=== PATIENT | male | born 1950 | race Caucasian/White ===

== ENCOUNTER 2020-12-13 11:49 | Inpatient (IN) | payer MEDICARE, OTHER ==
[2020-12-13] MEDS ORDERED: SODIUM CHLORIDE 0.9% 1,000 ML IV ONE (13:19)
--- NOTE | 2020-12-13 13:19 | ED ---
General Adult HPI - General Chief complaint: Abdominal Pain Stated complaint: Abdominal Pain Time Seen by Provider: 12/13/20 11:55 Source: patient, RN notes reviewed, old records reviewed Mode of arrival: ambulatory Limitations: no limitations - History of Present Illness Initial comments: This is a 70-year-old male who presents to the emergency department from [facility]. Patient was there and diagnosed with diverticulitis with possible abscess. Patient states he started having pain in the left side about 2 weeks ago went in and got some antibiotics and the pain and symptoms worsen so he went to the emergency department today were CAT scan was done that showed diverticulitis with an area of suspected of having an abscess. Patient denies any fever chills. Patient states the pain is quite significant left lower quadrant. Patient denies any chest pain or difficulty breathing shortness of breath. Patient denies any nausea vomiting. Patient denies any diarrhea. Patient states he does not need anything for pain currently he states he can stand the pain at this time. - Related Data Home Medications Medication Instructions Recorded Confirmed Ascorbic Acid [Vitamin C] 1,000 mg PO DAILY 12/13/20 12/13/20 Aspirin EC [Ecotrin] 325 mg PO DAILY 12/13/20 12/13/20 Atorvastatin Calcium [Lipitor] 80 mg PO DAILY 12/13/20 12/13/20 Multivitamins, Thera [Multivitamin 1 tab PO DAILY 12/13/20 12/13/20 (formulary)] Allergies Allergy/AdvReac Type Severity Reaction Status Date / Time No Known Allergies Allergy Verified 12/13/20 12:51 Review of Systems ROS Statement: Those systems with pertinent positive or pertinent negative responses have been documented in the HPI. ROS Other: All systems not noted in ROS Statement are negative. Past Medical History Additional Past Medical History / Comment(s): Diverticulitis History of Any Multi-Drug Resistant Organisms: None Reported Past Surgical History: No Surgical Hx Reported Past Psychological History: No Psychological Hx Reported Smoking Status: Current every day smoker Past Alcohol Use History: Occasional Past Drug Use History: None Reported General Exam - General Exam Comments Initial Comments: GENERAL: Patient is well-developed and well-nourished. Patient is nontoxic and well- hydrated and is in mild distress. ENT: Neck is soft and supple. No significant lymphadenopathy is noted. Oropharynx is clear. Moist mucous membranes. Neck has full range of motion without eliciting any pain. EYES: The sclera were anicteric and conjunctiva were pink and moist. Extraocular movements were intact and pupils were equal round and reactive to light. Eyelids were unremarkable. PULMONARY: Unlabored respirations. Good breath sounds bilaterally. No audible rales rhonchi or wheezing was noted. CARDIOVASCULAR: There is a regular rate and rhythm without any murmurs gallops or rubs. ABDOMEN: Patient has rebound tenderness left lower quadrant. SKIN: Skin is clear with no lesions or rashes and otherwise unremarkable. NEUROLOGIC: Patient is alert and oriented x3. Cranial nerves II through XII are grossly intact. Motor and sensory are also intact. Normal speech, volume and content. Symmetrical smile. MUSCULOSKELETAL: Normal extremities with adequate strength and full range of motion. LYMPHATICS: No significant lymphadenopathy is noted PSYCHIATRIC: Normal psychiatric evaluation. Limitations: no limitations Course Vital Signs 12/13/20 11:52 Temperature 98.8 F Pulse Rate 94 Respiratory 20 Rate Blood Pressure 123/68 O2 Sat by Pulse 97 Oximetry Medical Decision Making - Medical Decision Making I spoke with some physicians agreed to admit the patient admitted the patient. I started the patient on Zosyn. Disposition Clinical Impression: Diverticulitis of intestine with abscess Disposition: ADMITTED IP TO THIS HOSP Referrals: Nonstaff,Physician [Primary Care Provider] - 1-2 days Time of Disposition: 13:19
[2020-12-13] MEDS ORDERED: PIPERACILLIN-TAZOBACTAM 3.375 GM in SODIUM CHLORIDE 0.9% 100 ML IVPB STA (13:22)
[2020-12-13] MEDS ORDERED: HYDROmorphone 0.5 MG/0.5 ML SYRINGE IVP PRN (13:22)
[2020-12-13] MEDS ORDERED: ONDANSETRON 4 MG/2 ML VIAL IVP PRN (13:22)
--- NOTE | 2020-12-13 14:31 | P.GSCN ---
History of Present Illness Consult date: 12/13/20 History of present illness: CHIEF COMPLAINT: Abdominal pain HISTORY OF PRESENT ILLNESS: This is a 70-year-old male with a known history of diverticulitis, nicotine dependence and prostate cancer status post prostatectomy. Patient initially presented to [facility] with complaints of left lower quadrant abdominal pain. Patient has had pain for about 2 weeks. Patient was treated with oral antibiotics outpatient. However his left lower quadrant pain continued to worsen. He had computed tomography scan of abdomen and pelvis completed at [facility] that showed evidence of diverticulitis of sigmoid colon and multiple fluid collections. The largest fluid collection of 4.1 cm. The patient was transferred from [facility] to [facility] due to diverticulitis with possible abscess. Patient started on IV antibiotics. Surgical service consult in regards to diverticulitis and possible abscess. Patient states he has been having fevers. Denies any nausea or vomiting. He denies any blood in his stools. He reports his last colonoscopy was in June 2020 after his first episode of diverticulitis. This is patient's second episode of diverticulitis. PAST MEDICAL HISTORY: See list. PAST SURGICAL HISTORY: See list. MEDICATIONS: See list. ALLERGIES: See list. SOCIAL HISTORY: No illicit drug use. REVIEW OF SYSTEMS: CONSTITUTIONAL: Denies fever or chills. HEENT: Denies blurred vision, vision changes, or eye pain. Denies hemoptysis CARDIOVASCULAR: Denies chest pain or pressure. RESPIRATORY: No shortness of breath. GASTROINTESTINAL: See HPI for pertinent findings HEMATOLOGIC: Denies bleeding disorders. GENITOURINARY: Denies any blood in urine or increased urinary frequency. SKIN: Denies pruitis. Denies rash. PHYSICAL EXAM: VITAL SIGNS: Reviewed GENERAL: Well-developed in no acute distress. HEENT: No sclera icterus. Extraocular movements grossly intact. Moist buccal mucosa. Head is atraumatic, normocephalic. No nasal drainage. ABDOMEN: Soft. Nondistended. Left lower quadrant tenderness NEUROLOGIC: Alert and oriented. Cranial nerves II through XII grossly intact. LABORATORY DATA: WBC at [place] was 18 Lactic acid was normal IMAGING: ASSESSMENT: 1. Acute diverticulitis of the sigmoid colon with abscess. Failed outpatient treatment 2. Prior history of diverticulitis PLAN: -Consult interventional radiology for possible drainage of diverticular abscess -Continue IV Zosyn and add IV Flagyl -Keep patient nothing by mouth -Continue IV fluids -Continue pain medication as needed -Repeat labs in a.m. Thank you for this consultation Physician Auditor In Charge note has been reviewed by physician. Signing provider agrees with the documented findings, assessment, and plan of care. Past Medical History Additional Past Medical History / Comment(s): Diverticulitis History of Any Multi-Drug Resistant Organisms: None Reported Past Surgical History: No Surgical Hx Reported Past Psychological History: No Psychological Hx Reported Smoking Status: Current every day smoker Past Alcohol Use History: Occasional Past Drug Use History: None Reported Medications and Allergies Home Medications Medication Instructions Recorded Confirmed Type Ascorbic Acid [Vitamin C] 1,000 mg PO DAILY 12/13/20 12/13/20 History Aspirin EC [Ecotrin] 325 mg PO DAILY 12/13/20 12/13/20 History Atorvastatin Calcium [Lipitor] 80 mg PO DAILY 12/13/20 12/13/20 History Multivitamins, Thera [Multivitamin 1 tab PO DAILY 12/13/20 12/13/20 History (formulary)] Allergies Allergy/AdvReac Type Severity Reaction Status Date / Time No Known Allergies Allergy Verified 12/13/20 12:51 Surgical - Exam Vital Signs Temp Pulse Resp BP Pulse Ox 98.8 F 94 20 123/68 97 12/13/20 11:52 12/13/20 11:52 12/13/20 11:52 12/13/20 11:52 12/13/20 11:52
[2020-12-13] MEDS: SODIUM CHLORIDE 0.9% 1,000 ML IV SCH ×2 (14:47→20:25)
--- NOTE | 2020-12-13 14:51 | P.HPIM ---
History of Present Illness H&P Date: 12/13/20 Chief Complaint: Abdominal pain This is a 70-year-old male who presented to an outside emergency room at [facility] with worsening abdominal pain. Patient said that his symptoms started about 2 weeks ago when he was diagnosed with acute diverticulitis and he was treated with Cipro and Flagyl for 10 days. Patient said the last couple of days his abdominal pain is been getting worse. He described the pain as 10 out of 10 in severity mostly generalized. Some nausea but no vomiting. Patient is having diarrhea. Computed tomography scan at the outside hospital showed sigmoid diverticulitis with possible 4 cm abscess. Patient will be admitted to the hospital for further management. Review of Systems Review of system: 14 points review of systems were obtained and were negative except to what were mentioned in the HPI. Past Medical History Additional Past Medical History / Comment(s): Diverticulitis History of Any Multi-Drug Resistant Organisms: None Reported Past Surgical History: No Surgical Hx Reported Past Psychological History: No Psychological Hx Reported Smoking Status: Current every day smoker Past Alcohol Use History: Occasional Past Drug Use History: None Reported Medications and Allergies Home Medications Medication Instructions Recorded Confirmed Type Ascorbic Acid [Vitamin C] 1,000 mg PO DAILY 12/13/20 12/13/20 History Aspirin EC [Ecotrin] 325 mg PO DAILY 12/13/20 12/13/20 History Atorvastatin Calcium [Lipitor] 80 mg PO DAILY 12/13/20 12/13/20 History Multivitamins, Thera [Multivitamin 1 tab PO DAILY 12/13/20 12/13/20 History (formulary)] Allergies Allergy/AdvReac Type Severity Reaction Status Date / Time No Known Allergies Allergy Verified 12/13/20 12:51 Physical Exam Vitals: Vital Signs Temp Pulse Resp BP Pulse Ox 12/13/20 14:08 94 18 126/66 96 12/13/20 11:52 98.8 F 94 20 123/68 97 Intake and Output 12/12/20 12/13/20 12/13/20 22:59 06:59 14:59 Other: Weight 72.575 kg General: The patient is awake and alert, in no distress Eye: there is normal conjunctiva bilaterally. Neck: The neck is supple, there is no JVD. Cardiovascular: Normal S1-S2, no S3-S4, no murmurs. Respiratory: Lungs clear to auscultation bilaterally Gastrointestinal: Abdomen is soft, very tender to palpation Musculoskeletal: There is no pedal edema. Neurological:. Speech is normal. Skin: Skin is warm and dry Assessment and Plan Assessment: 1. Acute diverticulitis of the sigmoid colon with possible 4 cm abscess formation noted on computed tomography scan at outside hospital 2. Recurrent diverticulitis failed outpatient oral antibiotic 3. Hyperlipidemia Today, I reviewed his medication list and lab work results. Continue aggressive IV fluid hydration with normal saline. Nothing by mouth. Antibiotic with IV Zosyn. Gen. surgery consulted for further evaluation and plan for CT-guided aspiration. Continue pain control and anti-emetic as needed. Repeat Work in the morning.
[2020-12-13 16:08] LABS: INR 1.3 (<1.2); Prothrombin Time 12.9 sec (9.0-12.0)
[2020-12-13] MEDS: metroNIDAZOLE-NS PMX 500 MG in SALINE 1 100ML.BAG IVPB SCH (17:14)
[2020-12-13] MEDS: PIPERACILLIN-TAZOBACTAM 3.375 GM in SODIUM CHLORIDE 0.9% 100 ML IVPB SCH (20:18)
[2020-12-13] MEDS: HYDROmorphone 0.5 MG/0.5 ML SYRINGE IVP PRN (20:22)
[2020-12-14] MEDS: metroNIDAZOLE-NS PMX 500 MG in SALINE 1 100ML.BAG IVPB SCH ×3 (00:52→17:51)
[2020-12-14] MEDS: PIPERACILLIN-TAZOBACTAM 3.375 GM in SODIUM CHLORIDE 0.9% 100 ML IVPB SCH ×3 (05:06→21:11)
[2020-12-14] MEDS: SODIUM CHLORIDE 0.9% 1,000 ML IV SCH ×2 (05:08→13:57)
--- NOTE | 2020-12-14 09:21 | P.PN ---
Subjective Progress Note Date: 12/14/20 Patient reported that his abdominal pain is slightly better compared to yesterday. No nausea or vomiting. He is passing gas but no bowel movement since admission. Objective - Vital Signs Vital signs: Vital Signs Temp 98.3 F 12/14/20 08:00 Pulse 91 12/14/20 08:00 Resp 16 12/14/20 08:00 BP 132/71 12/14/20 08:00 Pulse Ox 96 12/14/20 08:00 Intake & Output 12/13/20 12/14/20 12/14/20 18:59 06:59 18:59 Output Total 600 Balance -600 Weight 72.575 kg Output: Urine 600 Other: # Voids 1 - Exam General: The patient is awake and alert, in no distress Eye: there is normal conjunctiva bilaterally. Neck: The neck is supple, there is no JVD. Cardiovascular: Normal S1-S2, no S3-S4, no murmurs. Respiratory: Lungs clear to auscultation bilaterally Gastrointestinal: Abdomen is soft, there is mild tenderness to palpation throughout the abdomen Musculoskeletal: There is no pedal edema. Neurological:. Speech is normal. Skin: Skin is warm and dry - Labs Labs: Abnormal Lab Results - Last 24 Hours (Table) 12/13/20 Range/Units 15:47 PT 12.9 H (9.0-12.0) sec INR 1.3 H (<1.2) Assessment and Plan Assessment: This is a 70-year-old male with past medical history noted below who presented to our hospital transferred from [place] emergency room for further evaluation of abdominal pain. Patient was evaluated in the ER and admitted to the hospital for further management of his medical problems noted below. 1. Acute diverticulitis of the sigmoid colon with possible 4 cm abscess formation noted on computed tomography scan at outside hospital 2. Recurrent diverticulitis failed outpatient oral antibiotic 3. Hyperlipidemia Today, I reviewed his medication list and lab work results. Continue aggressive IV fluid hydration with normal saline. Nothing by mouth. Antibiotic with IV Zosyn. Gen. surgery consulted for further evaluation and plan for CT-guided aspiration. Gen. surgery would like to add Flagyl on top of Zosyn. Continue pain control and anti-emetic as needed. Repeat Work in the morning.
[2020-12-14 09:25] LABS: HCT 37.7 % (39.6-50.0); HGB 12.3 g/dL (13.0-17.0); MCHC 32.6 g/dL (32.0-37.0); Mean Platelet Volume 10.7 fL (9.5-12.2); Platelet Count 375 X 10*3/uL (140-440); RBC 3.97 X 10*6/uL (4.40-5.60); RDW 12.8 % (11.5-14.5); WBC 17.47 X 10*3/uL (4.50-10.00)
[2020-12-14 10:23] LABS: African American GFR (CKD) 105.6 (60.0-200.0); Anion Gap 15.2 mmol/L (4.00-12.00); BUN/Creat Ratio 16.25 Ratio (12.00-20.00); Carbon Dioxide 18.8 mmol/L (21.6-31.8); Non-African American GFR(CKD) 91.1 (60.0-200.0); Potassium 4.1 mmol/L (3.5-5.5)
[2020-12-14] MEDS: HYDROmorphone 0.5 MG/0.5 ML SYRINGE IVP PRN ×4 (11:30→23:43)
--- NOTE | 2020-12-14 11:30 | P.PN ---
Subjective Progress Note Date: 12/14/20 CHIEF COMPLAINT: Abdominal pain HISTORY OF PRESENT ILLNESS: Surgical service is following regards to patient's acute diverticulitis with abscess. Patient reports decrease abdominal pain. Yesterday his pain was 9 out of 10 he currently is rating his pain about a 2 out of 10. He is having flatus. He is scheduled for possible drainage of abscess by interventional radiology. He is currently nothing by mouth. Afebrile. WBC down from 18-17.47 PHYSICAL EXAM: VITAL SIGNS: Reviewed. GENERAL: Well-developed in no acute distress. HEENT: No sclera icterus. Extraocular movements grossly intact. Moist buccal mucosa. Head is atraumatic, normocephalic. ABDOMEN: Soft. Nondistended. Tenderness with palpation the left lower quadrant and pelvic area NEUROLOGIC: Alert and oriented. Cranial nerves II through XII grossly intact. ASSESSMENT: 1. Acute diverticulitis of the sigmoid colon with abscess 2. History of diverticulitis PLAN: -Possible drainage of diverticular abscess by interventional radiology today -Keep patient nothing by mouth -Continue IV antibiotics -Continue IV fluids -Continue pain medications as needed -Continue monitor CBC Physician Judicial Administrative Assistant note has been reviewed by physician. Signing provider agrees with the documented findings, assessment, and plan of care. Objective - Vital Signs Vital signs: Vital Signs Temp 98.3 F 12/14/20 08:00 Pulse 91 12/14/20 08:00 Resp 16 12/14/20 08:00 BP 132/71 12/14/20 08:00 Pulse Ox 96 12/14/20 08:00 Intake & Output 12/13/20 12/14/20 12/14/20 18:59 06:59 18:59 Output Total 600 Balance -600 Weight 72.575 kg Output: Urine 600 Other: # Voids 1 - Labs CBC & Chem 7: 12/14/20 05:40 12/14/20 05:40 Labs: Abnormal Lab Results - Last 24 Hours (Table) 12/13/20 12/14/20 12/14/20 Range/Units 15:47 05:40 05:40 WBC 17.47 H (4.50-10.00) X 10*3/uL RBC 3.97 L (4.40-5.60) X 10*6/uL Hgb 12.3 L (13.0-17.0) g/dL Hct 37.7 L (39.6-50.0) % PT 12.9 H (9.0-12.0) sec INR 1.3 H (<1.2) Carbon Dioxide 18.8 L (21.6-31.8) mmol/L Anion Gap 15.20 H (4.00-12.00) mmol/L Calcium 8.0 L (8.7-10.3) mg/dL
--- NOTE | 2020-12-14 12:51 | CT ---
EXAMINATION TYPE: CT guided abscess drainage DATE OF EXAM: 12/14/2020 COMPARISON: 12/13/2020 HISTORY: Pelvic abscess CT DLP: 283.09 mGycm The procedure is discussed with the patient, the risks, complications, benefits and alternatives, wer e discussed and any questions were answered. Informed consent was obtained. The patient is placed p lulu on the CT table, prepped and draped in the usual sterile fashion. Utilizing a 22-gauge [place] needle access into a pelvic fluid collection was achieved with [place] 11 0.018 guidewire. There is conversion to internal 0.035 system, serial dilation 8 [place] and placement of an 8.5 drainage catheter which appear to be in ideal position. A preliminary material was aspirat ed and sent to pathology for analysis. All elements of maximal barrier technique were utilized. Th e patient remained stable throughout the procedure with no immediate postprocedural complication. IMPRESSION: 1. Successful CT guided fine drainage catheter insertion within pelvic abscess.
[2020-12-14 13:49] LABS: Basophils # (A) 0.05 X 10*3/uL (0.00-0.10); Basophils % (A) 0.3 %; Eosinophils # (A) 0.01 X 10*3/uL (0.04-0.35); Eosinophils % (A) 0.1 %; Lymphocytes # (A) 1.18 X 10*3/uL (0.90-5.00); Lymphocytes % (A) 6.8 %; Monocytes # (A) 1.93 X 10*3/uL (0.20-1.00); Neutrophils # (A) 14.19 X 10*3/uL (1.80-7.70); Neutrophils % (A) 81.2 %
[2020-12-15] MEDS: metroNIDAZOLE-NS PMX 500 MG in SALINE 1 100ML.BAG IVPB SCH ×3 (01:16→17:49)
[2020-12-15] MEDS: SODIUM CHLORIDE 0.9% 1,000 ML IV SCH ×2 (01:16→08:13)
[2020-12-15] MEDS: HYDROmorphone 0.5 MG/0.5 ML SYRINGE IVP PRN ×3 (04:52→17:58)
[2020-12-15] MEDS: PIPERACILLIN-TAZOBACTAM 3.375 GM in SODIUM CHLORIDE 0.9% 100 ML IVPB SCH ×3 (04:53→20:59)
[2020-12-15 08:00] LABS: Chloride 105 mmol/L (98-107)
[2020-12-15 08:03] LABS: African American GFR (CKD) >90 (>60 ml/min/1.73 sqM); Anion Gap 15 mmol/L; Blood Urea Nitrogen 12 mg/dL (9-20); Carbon Dioxide 18 mmol/L (22-30); Glucose 82 mg/dL (74-99); Magnesium 2.1 mg/dL (1.6-2.3); Non-African American GFR(CKD) >90 (>60 ml/min/1.73 sqM); Potassium 3.9 mmol/L (3.5-5.1); Sodium 138 mmol/L (137-145)
--- NOTE | 2020-12-15 11:16 | P.PN ---
Progress Note - Text Progress Note Date: 12/15/20 Patient underwent intervention radiology drain placement yesterday. He states he feels slightly better. On exam vital signs are stable. Abdomen soft. There is minimal left lower quadrant tenderness. Diverticulitis with drainage of abscess. Patient will receive IV and back. He'll start on clear liquids.
[2020-12-15 12:15] LABS: Basophils # (A) 0.04 X 10*3/uL (0.00-0.10); Basophils % (A) 0.3 %; Eosinophils # (A) 0.04 X 10*3/uL (0.04-0.35); Eosinophils % (A) 0.3 %; HCT 35.6 % (39.6-50.0); HGB 11.5 g/dL (13.0-17.0); Lymphocytes # (A) 1.05 X 10*3/uL (0.90-5.00); Lymphocytes % (A) 8.3 %; MCHC 32.3 g/dL (32.0-37.0); Mean Platelet Volume 10.5 fL (9.5-12.2); Monocytes # (A) 1.33 X 10*3/uL (0.20-1.00); Monocytes % (A) 10.5 %; Neutrophils # (A) 10.11 X 10*3/uL (1.80-7.70); Neutrophils % (A) 79.7 %; Platelet Count 361 X 10*3/uL (140-440); RBC 3.71 X 10*6/uL (4.40-5.60); RDW 12.8 % (11.5-14.5); WBC 12.68 X 10*3/uL (4.50-10.00)
--- NOTE | 2020-12-15 12:36 | P.PN ---
Subjective Progress Note Date: 12/15/20 Patient is feeling better today. He underwent drain placement with IR yesterday. There is some blood drainage in the back. Objective - Vital Signs Vital signs: Vital Signs Temp 98 F 12/15/20 08:00 Pulse 76 12/15/20 08:00 Resp 16 12/15/20 08:00 BP 116/65 12/15/20 08:00 Pulse Ox 96 12/15/20 08:00 Intake & Output 12/14/20 12/15/20 12/15/20 18:59 06:59 18:59 Output Total 500 300 200 Balance -500 -300 -200 Output: Urine 500 300 200 Other: # Voids 2 # Bowel Movements 0 - Exam General: The patient is awake and alert, in no distress Eye: there is normal conjunctiva bilaterally. Neck: The neck is supple, there is no JVD. Cardiovascular: Normal S1-S2, no S3-S4, no murmurs. Respiratory: Lungs clear to auscultation bilaterally Gastrointestinal: Abdomen is soft, there is mild tenderness to palpation throughout the abdomen Musculoskeletal: There is no pedal edema. Neurological:. Speech is normal. Skin: Skin is warm and dry - Labs CBC & Chem 7: 12/15/20 07:15 12/15/20 07:15 Labs: Abnormal Lab Results - Last 24 Hours (Table) 12/14/20 12/15/20 12/15/20 Range/Units 05:40 07:15 07:15 WBC 12.68 H (4.50-10.00) X 10*3/uL RBC 3.71 L (4.40-5.60) X 10*6/uL Hgb 11.5 L (13.0-17.0) g/dL Hct 35.6 L (39.6-50.0) % Immature Gran # 0.11 H 0.11 H (0.00-0.04) X 10*3/uL Neutrophils # 14.19 H 10.11 H (1.80-7.70) X 10*3/uL Monocytes # 1.93 H 1.33 H (0.20-1.00) X 10*3/uL Eosinophils # 0.01 L (0.04-0.35) X 10*3/uL Carbon Dioxide 18 L (22-30) mmol/L Calcium 8.0 L (8.4-10.2) mg/dL Microbiology - Last 24 Hours (Table) 12/14/20 12:15 Gram Stain - Preliminary Aspirate Body Fluid Culture - Preliminary 12/14/20 12:15 Anaerobic Culture - Preliminary Aspirate Assessment and Plan Assessment: This is a 70-year-old male with past medical history noted below who presented to our hospital transferred from [place] emergency room for further evaluation of abdominal pain. Patient was evaluated in the ER and admitted to the hospital for further management of his medical problems noted below. 1. Acute diverticulitis of the sigmoid colon with possible 4 cm abscess formation noted on computed tomography scan at outside hospital, status post CT- guided aspiration with drain placement. Gen. surgery following closely. 2. Recurrent diverticulitis failed outpatient oral antibiotic 3. Hyperlipidemia Today, I reviewed his medication list and lab work results. Antibiotic with IV Zosyn. Gen. surgery would like to add Flagyl on top of Zosyn. Continue pain control and anti-emetic as needed. Repeat Work in the morning.
[2020-12-16] MEDS: metroNIDAZOLE-NS PMX 500 MG in SALINE 1 100ML.BAG IVPB SCH ×3 (01:00→17:31)
[2020-12-16] MEDS: HYDROmorphone 0.5 MG/0.5 ML SYRINGE IVP PRN ×2 (01:05→21:00)
[2020-12-16] MEDS: PIPERACILLIN-TAZOBACTAM 3.375 GM in SODIUM CHLORIDE 0.9% 100 ML IVPB SCH ×3 (05:14→21:01)
--- NOTE | 2020-12-16 11:13 | P.PN ---
Subjective Progress Note Date: 12/16/20 Patient is doing well today. He underwent drain placement with IR on Thursday. There is some blood drainage in the back. Objective - Vital Signs Vital signs: Vital Signs Temp 98.0 F 12/16/20 08:00 Pulse 70 12/16/20 08:00 Resp 18 12/16/20 08:00 BP 134/68 12/16/20 08:00 Pulse Ox 94 L 12/16/20 08:00 Intake & Output 12/15/20 12/16/20 12/16/20 18:59 06:59 18:59 Output Total 200 400 Balance -200 -400 Output: Urine 200 400 Other: # Voids 1 - Exam General: The patient is awake and alert, in no distress Eye: there is normal conjunctiva bilaterally. Neck: The neck is supple, there is no JVD. Cardiovascular: Normal S1-S2, no S3-S4, no murmurs. Respiratory: Lungs clear to auscultation bilaterally Gastrointestinal: Abdomen is soft, there is mild tenderness to palpation throughout the abdomen Musculoskeletal: There is no pedal edema. Neurological:. Speech is normal. Skin: Skin is warm and dry - Labs CBC & Chem 7: 12/15/20 07:15 12/15/20 07:15 Labs: Abnormal Lab Results - Last 24 Hours (Table) 12/15/20 Range/Units 07:15 WBC 12.68 H (4.50-10.00) X 10*3/uL RBC 3.71 L (4.40-5.60) X 10*6/uL Hgb 11.5 L (13.0-17.0) g/dL Hct 35.6 L (39.6-50.0) % Immature Gran # 0.11 H (0.00-0.04) X 10*3/uL Neutrophils # 10.11 H (1.80-7.70) X 10*3/uL Monocytes # 1.33 H (0.20-1.00) X 10*3/uL Microbiology - Last 24 Hours (Table) 12/14/20 12:15 Gram Stain - Preliminary Aspirate Body Fluid Culture - Preliminary Assessment and Plan Assessment: This is a 70-year-old male with past medical history noted below who presented to our hospital transferred from [place] emergency room for further evaluation of abdominal pain. Patient was evaluated in the ER and admitted to the hospital for further management of his medical problems noted below. 1. Acute diverticulitis of the sigmoid colon with possible 4 cm abscess formation noted on computed tomography scan at outside hospital, status post CT- guided aspiration with drain placement. Gen. surgery following closely. 2. Recurrent diverticulitis failed outpatient oral antibiotic 3. Hyperlipidemia Today, I reviewed his medication list and lab work results. Antibiotic with IV Zosyn. Gen. surgery would like to add Flagyl on top of Zosyn. Continue pain control and anti-emetic as needed. Repeat Work in the morning.
--- NOTE | 2020-12-16 12:24 | P.PN ---
Progress Note - Text Progress Note Date: 12/16/20 Patient feels better. He still has some pain. His BLU drain still has some serosanguineous purulent fluid. On exam vitals are stable. Abdomen soft. Diverticulosis with abscess. Patient can receive IV antibiotic.
[2020-12-16 12:42] LABS: Basophils # (A) 0.06 X 10*3/uL (0.00-0.10); Basophils % (A) 0.6 %; Eosinophils # (A) 0.21 X 10*3/uL (0.04-0.35); Eosinophils % (A) 2.1 %; HCT 35.3 % (39.6-50.0); HGB 11.4 g/dL (13.0-17.0); Lymphocytes # (A) 1.16 X 10*3/uL (0.90-5.00); Lymphocytes % (A) 11.6 %; MCH 30.2 pg (27.0-32.0); MCHC 32.3 g/dL (32.0-37.0); MCV 93.6 fL (80.0-97.0); Mean Platelet Volume 10.7 fL (9.5-12.2); Monocytes # (A) 1.15 X 10*3/uL (0.20-1.00); Monocytes % (A) 11.5 %; Neutrophils # (A) 7.31 X 10*3/uL (1.80-7.70); Platelet Count 359 X 10*3/uL (140-440); RBC 3.77 X 10*6/uL (4.40-5.60); RDW 12.5 % (11.5-14.5); WBC 10.01 X 10*3/uL (4.50-10.00)
[2020-12-16 13:51] LABS: Magnesium 1.8 mg/dL (1.5-2.4)
[2020-12-16 13:52] LABS: African American GFR (CKD) 111.6 (60.0-200.0); Anion Gap 9.7 mmol/L (4.00-12.00); BUN/Creat Ratio 17.14 Ratio (12.00-20.00); Calcium 7.5 mg/dL (8.7-10.3); Carbon Dioxide 23.3 mmol/L (21.6-31.8); Non-African American GFR(CKD) 96.3 (60.0-200.0); Potassium 3.6 mmol/L (3.5-5.5)
[2020-12-17] MEDS: metroNIDAZOLE-NS PMX 500 MG in SALINE 1 100ML.BAG IVPB SCH ×4 (01:10→23:30)
[2020-12-17] MEDS: PIPERACILLIN-TAZOBACTAM 3.375 GM in SODIUM CHLORIDE 0.9% 100 ML IVPB SCH ×3 (05:09→21:05)
[2020-12-17 11:19] LABS: Basophils # (A) 0.05 X 10*3/uL (0.00-0.10); Basophils % (A) 0.7 %; Eosinophils # (A) 0.24 X 10*3/uL (0.04-0.35); Eosinophils % (A) 3.4 %; HCT 38.5 % (39.6-50.0); HGB 12.6 g/dL (13.0-17.0); Lymphocytes # (A) 1.12 X 10*3/uL (0.90-5.00); Lymphocytes % (A) 16.1 %; MCH 30.7 pg (27.0-32.0); MCHC 32.7 g/dL (32.0-37.0); MCV 93.7 fL (80.0-97.0); Mean Platelet Volume 10.6 fL (9.5-12.2); Monocytes % (A) 11.5 %; Neutrophils # (A) 4.65 X 10*3/uL (1.80-7.70); Neutrophils % (A) 66.9 %; Platelet Count 391 X 10*3/uL (140-440); RBC 4.11 X 10*6/uL (4.40-5.60); RDW 12.4 % (11.5-14.5); WBC 6.96 X 10*3/uL (4.50-10.00)
[2020-12-17 12:32] LABS: African American GFR (CKD) 111.6 (60.0-200.0); Calcium 8.2 mg/dL (8.7-10.3); Non-African American GFR(CKD) 96.3 (60.0-200.0); Potassium 3.4 mmol/L (3.5-5.5)
[2020-12-17] MEDS ORDERED: POTASSIUM CHLORIDE ER 20 MEQ TAB.ER PO STA (12:39)
--- NOTE | 2020-12-17 12:39 | P.PN ---
Subjective Patient reports still having some abdominal discomfort today. No nausea or vomiting. Objective - Vital Signs Vital signs: Vital Signs Temp 97.7 F 12/17/20 07:30 Pulse 65 12/17/20 07:30 Resp 18 12/17/20 07:30 BP 123/72 12/17/20 07:30 Pulse Ox 96 12/17/20 07:30 Intake & Output 12/16/20 12/17/20 12/17/20 18:59 06:59 18:59 Intake Total 1080 Output Total 900 80 Balance 1080 -900 -80 Intake: Oral 1080 Output: Drainage 80 Lower Medial Abdomen 80 Urine 900 Other: # Voids 3 - Exam General: The patient is awake and alert, in no distress Eye: there is normal conjunctiva bilaterally. Neck: The neck is supple, there is no JVD. Cardiovascular: Normal S1-S2, no S3-S4, no murmurs. Respiratory: Lungs clear to auscultation bilaterally Gastrointestinal: Abdomen is soft, there is mild tenderness to palpation throughout the abdomen Musculoskeletal: There is no pedal edema. Neurological:. Speech is normal. Skin: Skin is warm and dry - Labs CBC & Chem 7: 12/17/20 07:02 12/17/20 07:02 Labs: Abnormal Lab Results - Last 24 Hours (Table) 12/16/20 12/16/20 12/17/20 Range/Units 06:49 06:49 07:02 WBC 10.01 H (4.50-10.00) X 10*3/uL RBC 3.77 L 4.11 L (4.40-5.60) X 10*6/uL Hgb 11.4 L 12.6 L (13.0-17.0) g/dL Hct 35.3 L 38.5 L (39.6-50.0) % Immature Gran # 0.12 H 0.10 H (0.00-0.04) X 10*3/uL Monocytes # 1.15 H (0.20-1.00) X 10*3/uL Potassium (3.5-5.5) mmol/L BUN (9.0-27.0) mg/dL BUN/Creatinine Ratio (12.00-20.00) Ratio Calcium 7.5 L (8.7-10.3) mg/dL 12/17/20 Range/Units 07:02 WBC (4.50-10.00) X 10*3/uL RBC (4.40-5.60) X 10*6/uL Hgb (13.0-17.0) g/dL Hct (39.6-50.0) % Immature Gran # (0.00-0.04) X 10*3/uL Monocytes # (0.20-1.00) X 10*3/uL Potassium 3.4 L (3.5-5.5) mmol/L BUN 7.0 L (9.0-27.0) mg/dL BUN/Creatinine Ratio 10.00 L (12.00-20.00) Ratio Calcium 8.2 L (8.7-10.3) mg/dL Microbiology - Last 24 Hours (Table) 12/14/20 12:15 Anaerobic Culture - Preliminary Aspirate Assessment and Plan Assessment: This is a 70-year-old male with past medical history noted below who presented to our hospital transferred from [place] emergency room for further evaluation of abdominal pain. Patient was evaluated in the ER and admitted to the hospital for further management of his medical problems noted below. 1. Acute diverticulitis of the sigmoid colon with possible 4 cm abscess formation noted on computed tomography scan at outside hospital, status post CT- guided aspiration with drain placement. Gen. surgery following closely. 2. Recurrent diverticulitis failed outpatient oral antibiotic 3. Hyperlipidemia Today, I reviewed his medication list and lab work results. Antibiotic with IV Zosyn. Gen. surgery would like to add Flagyl on top of Zosyn. Continue pain control and anti-emetic as needed. Repeat Work in the morning. Awaiting further recommendations from general surgery on drain removal and possibly today
--- NOTE | 2020-12-17 17:20 | P.PN ---
Progress Note - Text Progress Note Date: 12/17/20 Patient improving. He has decreased abdominal pain. On exam her vital signs are stable. Abdomen soft. Left lower quadrant drain has some seropurulent fluid. Status post drainage of diverticular abscess. Patient's. IV antibiotic. He may be switched to oral Avelox tomorrow and discharge home.
[2020-12-18] MEDS: HYDROmorphone 0.5 MG/0.5 ML SYRINGE IVP PRN (00:38)
[2020-12-18 07:37] VITALS: RESP 18; TEMP 97.5
[2020-12-18] MEDS: metroNIDAZOLE 500 MG TAB PO SCH ×2 (08:39→15:10)
[2020-12-18] MEDS ORDERED: LEVOFLOXACIN 500 MG TAB PO SCH (09:00)
[2020-12-18 14:34] LABS: African American GFR (CKD) 111.6 (60.0-200.0); Anion Gap 10.8 mmol/L (4.00-12.00); BUN/Creat Ratio 8.57 Ratio (12.00-20.00); Calcium 8.2 mg/dL (8.7-10.3); Carbon Dioxide 25.2 mmol/L (21.6-31.8); Non-African American GFR(CKD) 96.3 (60.0-200.0); Potassium 3.7 mmol/L (3.5-5.5)
[2020-12-18 15:14] VITALS: BMI 24.3
[2020-12-18 15:23] VITALS: BP 134/71; PULSE 77
--- NOTE | 2020-12-18 16:12 | P.DS ---
<Calderon Sheikh - Last Filed: 12/18/20 16:02> Providers Expected date of discharge: 12/18/20 Hospital Course: Discharge Diagnosis: Acute diverticulitis of the sigmoid colon with possible 4 cm abscess formation noted on computed tomography scan at outside hospital, status post CT-guided aspiration with drain placement. Recurrent diverticulitis failed outpatient oral antibiotic Hyperlipidemia Hospital Course: Patient is a 70-year-old male with a past medical history of hyperlipidemia and diverticulosis. He presented to the hospital on 12/13/20 with a chief complaint of worsening abdominal pain. Patient reports 2 weeks prior he was diagnosed with acute diverticulitis and was treated with ciprofloxacin and Flagyl for 10 days. However pain significantly worsened and was accompanied by diarrhea. Virgilio aguero seen and evaluated in the emergency department at [facility] and was found to have sigmoid diverticulitis with possible 4 cm abscess accompanied by significant leukocytosis with WBC count of 17.47 with left shift. Patient was placed on IV fluids, IV antibiotics, and admitted under our services with consultation to general surgery. Patient underwent CT-guided aspiration/abscess drainage on 12/14/[address] Carmona. Cultures obtained positive for alphahemolytic Streptococcus. Patient's condition significantly improved, leukocytosis resolved. Patient cleared by general surgery for discharge home at this time. Patient is medically stable for discharge home. Patient instructed he is being discharged home on full liquid diet and to slowly progress to brat diet as tolerated. Patient to follow-up with his PCP in 1-[address] Carmona on 12/27/20 at 3 PM. Patient verbalized understanding and denied having any questions at this time. Physical exam: Patient seen and examined at bedside. He denied having any complaints or concerns at this time. Reports resolution of diarrhea. He reports resolution of abdominal pain. Patient denies. Any headache, lightheadedness, dizziness, chest pain, pelvic dictations, shortness of breath, nausea, vomiting, or any other complaints. Patient tolerating full liquid diet. Vital signs reviewed and stable. General: Nontoxic, no distress and appears stated age. Derm: Skin warm and dry, normal coloration for ethnicity. Head: Atraumatic, normocephalic and symmetric. Eyes: EOMs intact, no lid lag, and anicteric sclera Mouth: no lip lesions, mucus membranes moist Cardiovascular: regular rate and rhythm with normal S1S2, no murmur, positive posterior tibial pulses bilaterally, and cap refill < 2 seconds. Lungs: Respirations even, regular, and unlabored on room air. Lungs CTA bilaterally, no rhonchi, no rales, no wheezing, and no accessory muscle usage. Abdominal: soft, nontender to palpation, no guarding, no appreciable organomegaly Ext: ROM intact. No gross muscle atrophy, no edema, no contractures Neuro: Speech clear, face symmetrical and CN II-XII grossly intact with no noted focal neuro deficits Psych: Alert and oriented to person, place, time, and situation. Appropriate and pleasant affect. A total of 45 minutes of time were spent preparing this complex discharge summary. Patient Condition at Discharge: Fair Plan - Discharge Summary Discharge Rx Participant: No New Discharge Prescriptions: New Levofloxacin [Levaquin] 500 mg PO Q24H 5 Days #5 tab metroNIDAZOLE [Flagyl] 500 mg PO TID 5 Days #15 tab Continue Atorvastatin Calcium [Lipitor] 80 mg PO DAILY Ascorbic Acid [Vitamin C] 1,000 mg PO DAILY Multivitamins, Thera [Multivitamin (formulary)] 1 tab PO DAILY Aspirin EC [Ecotrin] 325 mg PO DAILY Discharge Medication List Ascorbic Acid [Vitamin C] 1,000 mg PO DAILY 12/13/20 [History] Aspirin EC [Ecotrin] 325 mg PO DAILY 12/13/20 [History] Atorvastatin Calcium [Lipitor] 80 mg PO DAILY 12/13/20 [History] Multivitamins, Thera [Multivitamin (formulary)] 1 tab PO DAILY 12/13/20 [History] Levofloxacin [Levaquin] 500 mg PO Q24H 5 Days #5 tab 12/18/20 [Rx] metroNIDAZOLE [Flagyl] 500 mg PO TID 5 Days #15 tab 12/18/20 [Rx] Follow up Appointment(s)/Referral(s): Nonstaff,Physician [Primary Care Provider] - 1-2 days Jigar Chanel [STAFF PHYSICIAN] - 1-2 Days Esteban Carmona MD [STAFF PHYSICIAN] - 12/27/20 3:00 pm Patient Instructions/Handouts: Diverticulitis (DC), Diverticulitis Diet (DC), Abscess Incision and Drainage (DC) Activity/Diet/Wound Care/Special Instructions: Empty abscess drainage bag and record amount daily in journal and be sure to bring with you to your next doctor's appointment. Continue full liquid diet and progress slowly to MAULIK (bread, rice, applesauce, tea, and toast... Kleberg nongreasy foods) diet as tolerated. Discharge Disposition: HOME SELF-CARE <Shawnee Rico - Last Filed: 12/18/20 19:50> Providers Date of admission: 12/13/20 13:20 Attending physician: Cam Romero Consults: 12/13/20 13:19 Consult Physician Urgent Consulting Provider: Esteban Carmona Consult Reason/Comments: Diverticulitis with abscess Do you want consulting provider notified?: Yes Primary care physician: Physician Nonstaff Hospital Course: Calderon Sheikh NP rendered care for this patient independently, reviewed the findings and plan as documented in the note above. I did not physically speak with or examine the patient on this date. Patient will complete a 10 day course of antibiotics.
== END 2020-12-18 15:49 | disposition home or self-care (01) | DRG 392 ==
LOC: EC 11:49 → 4SSUR 13:20
PROVIDERS: ADMIT Internal Medicine; ATTEND Internal Medicine
PROC: 0W9J30Z Drainage of Pelvic Cavity with Drainage Device, Percutaneous Approach (ICD-10-PCS; principal; 2020-12-14)
DX: K57.20 Diverticulitis of large intestine with perforation and abscess without bleeding (principal); F17.200 Nicotine dependence, unspecified, uncomplicated; E78.5 Hyperlipidemia, unspecified; Z79.82 Long term (current) use of aspirin; Z79.899 Other long term (current) drug therapy; Z85.46 Personal history of malignant neoplasm of prostate; Z90.79 Acquired absence of other genital organ(s)
CPT/HCPCS: 75989; 77012; 80048; 83735; 85025; 85610; 87070; 87075; 87205; 99285

== ENCOUNTER 2021-02-12 09:43 | Day surgery (SDC) | payer MEDICARE, OTHER ==
[2021-02-11 08:42] VITALS: BMI 23.6
[~2021-02-12 09:43] MED LIST: LIDOCAINE 1% (10MG/ML) FOR IV START INTRADERMA PRN
[2021-02-12 10:13] VITALS: RESP 16; TEMP 97.9
[2021-02-12] MEDS: LACTATED RINGERS 1,000 ML IV SCH ×2 (10:21→11:09)
[2021-02-12] MEDS ORDERED: PROPOFOL 10 MG/ML 20 ML VIAL IV ONE (11:09)
[2021-02-12] MEDS ORDERED: LIDOCAINE 1% INJ 10MG/ML (20 ML MDV) ONE (11:09)
--- NOTE | 2021-02-12 11:23 | P.GSHP ---
History of Present Illness H&P Date: 02/12/21 Chief Complaint: Perforated diverticulitis 's is a 70-year-old male with history of perforated diverticula is. Patient underwent colonoscopy today with sigmoid resection scheduled for tomorrow. Past Medical History Past Medical History: Cancer, Hyperlipidemia Additional Past Medical History / Comment(s): Diverticulitis,prostate CA 2006 History of Any Multi-Drug Resistant Organisms: None Reported Past Surgical History: Prostate Surgery Additional Past Surgical History / Comment(s): prostatectomy Past Anesthesia/Blood Transfusion Reactions: No Reported Reaction Additional Past Anesthesia/Blood Transfusion Reaction / Comment(s): no hx blood transfusion Smoking Status: Current every day smoker - Past Family History Father Family Medical History: No Reported History Medications and Allergies Home Medications Medication Instructions Recorded Confirmed Type Ascorbic Acid [Vitamin C] 1,000 mg PO DAILY 12/13/20 02/11/21 History Aspirin EC [Ecotrin] 325 mg PO DAILY 12/13/20 02/11/21 History Atorvastatin Calcium [Lipitor] 80 mg PO DAILY 12/13/20 02/12/21 History Multivitamins, Thera [Multivitamin 1 tab PO DAILY 12/13/20 02/11/21 History (formulary)] Allergies Allergy/AdvReac Type Severity Reaction Status Date / Time No Known Allergies Allergy Verified 02/12/21 10:05 Surgical - Exam Vital Signs Temp Pulse Resp BP Pulse Ox 97.9 F 122 H 16 153/70 99 02/12/21 10:12 02/12/21 10:12 02/12/21 10:12 02/12/21 10:12 02/12/21 10:12 - General well developed, well nourished, no distress - Eyes PERRL - ENT normal pinna - Neck no masses - Respiratory normal expansion - Cardiovascular Rhythm: regular - Abdomen Abdomen: soft, non tender Assessment and Plan Assessment: History of diverticulitis. We'll perform colonoscopy.
--- NOTE | 2021-02-12 11:33 | P.OP ---
Date of Procedure: 02/12/21 Preoperative Diagnosis: Diverticulitis Postoperative Diagnosis: Diverticulitis Procedure(s) Performed: Colonoscopy Anesthesia: MAC Surgeon: Esteban Carmona Pathology: none sent Condition: stable Disposition: PACU Description of Procedure: The patient's placed on the endoscopy table in the lateral position. He received IV sedation. Digital rectal exam was performed which revealed no ebonized. The flexible colonoscope was then placed patient anus passed with colon. The right colon had significant amount liquid stool. At this point the scope was withdrawn. The transverse colon appeared normal. The descending colon had a few scattered diverticula. There is evidence of significant diverticular changes and sigmoid colon. Scope was withdrawn the rectum. This appeared normal. Scope withdrawn for patient.
[2021-02-12 11:56] VITALS: BP 134/76; PULSE 102
== END 2021-02-12 12:05 | disposition home or self-care (01) ==
LOC: ORWHC2ENDO 09:43
PROVIDERS: ATTEND Surgery
DX: K57.92 Diverticulitis of intestine, part unspecified, without perforation or abscess without bleeding (principal); Z79.82 Long term (current) use of aspirin; Z79.899 Other long term (current) drug therapy; E78.5 Hyperlipidemia, unspecified; Z85.46 Personal history of malignant neoplasm of prostate; F17.210 Nicotine dependence, cigarettes, uncomplicated
CPT/HCPCS: 45378; J2001; J2704

== ENCOUNTER 2021-02-13 08:45 | Inpatient (IN) | payer MEDICARE, OTHER ==
[~2021-02-13 08:45] MED LIST changes: +ACETAMINOPHEN TAB 500 MG TAB PO PRN; +DEXAMETHASONE SOD PHOSPHATE 4 MG/ML 1 ML VIAL IV ONE; +HEPARIN SODIUM,PORCINE/PF 5,000 UNIT/0.5 ML SYRINGE SQ PRN; +MIDAZOLAM 2 MG/2 ML VIAL IV PRN; +ONDANSETRON 4 MG/2 ML VIAL IVP ONE; +metroNIDAZOLE-NS PMX 500 MG in SALINE 1 100ML.BAG IVPB PRN
[2021-02-13] MEDS: LACTATED RINGERS 1,000 ML IV SCH (09:31)
[2021-02-13 10:12] LABS: Partial Thromboplastin Time 32.5 sec (22.0-30.0)
--- NOTE | 2021-02-13 12:32 | P.GSHP ---
History of Present Illness H&P Date: 02/13/21 Chief Complaint: History of perforated diverticulitis This is a 70-year-old male who presents today for sigmoid resection. He has a history of multiple attacks of diverticulitis last year. Patient is aware of the risk of colostomy and possible wound infection. Past Medical History Past Medical History: Cancer, Hyperlipidemia Additional Past Medical History / Comment(s): Diverticulitis,prostate CA 2007 History of Any Multi-Drug Resistant Organisms: None Reported Past Surgical History: Prostate Surgery Additional Past Surgical History / Comment(s): prostatectomy Past Anesthesia/Blood Transfusion Reactions: No Reported Reaction Smoking Status: Current every day smoker - Past Family History Father Family Medical History: No Reported History Medications and Allergies Home Medications Medication Instructions Recorded Confirmed Type Ascorbic Acid [Vitamin C] 1,000 mg PO DAILY 12/13/20 02/13/21 History Aspirin EC [Ecotrin] 325 mg PO DAILY 12/13/20 02/13/21 History Atorvastatin Calcium [Lipitor] 80 mg PO DAILY 12/13/20 02/13/21 History Multivitamins, Thera [Multivitamin 1 tab PO DAILY 12/13/20 02/13/21 History (formulary)] Allergies Allergy/AdvReac Type Severity Reaction Status Date / Time No Known Allergies Allergy Verified 02/13/21 09:31 Surgical - Exam Vital Signs Temp Pulse Resp BP Pulse Ox 97.4 F L 101 H 18 152/73 98 02/13/21 09:58 02/13/21 09:58 02/13/21 09:58 02/13/21 09:58 02/13/21 09:58 - General well developed, well nourished, no distress - Eyes PERRL - ENT normal pinna - Neck no masses - Respiratory normal expansion - Cardiovascular Rhythm: regular - Abdomen Abdomen: soft, non tender Results - Labs Abnormal Lab Results - Last 24 Hours (Table) 02/13/21 Range/Units 09:53 APTT 32.5 H (22.0-30.0) sec Assessment and Plan Assessment: History Dr. helms. We'll perform low anterior resection.
[2021-02-13] MEDS ORDERED: fentaNYL (PF) 50 MCG/ML 2 ML AMP IVP ONE (12:52)
[2021-02-13] MEDS ORDERED: MIDAZOLAM 2 MG/2 ML VIAL IVP ONE (12:53)
[2021-02-13] MEDS ORDERED: fentaNYL (PF) 50 MCG/ML 2 ML AMP ONE ×2 (13:16→18:25)
[2021-02-13] MEDS ORDERED: HYDROmorphone (PF) 1 MG/ML ONE (13:16)
[2021-02-13] MEDS ORDERED: MIDAZOLAM 2 MG/2 ML VIAL ONE ×2 (13:16→18:25)
[2021-02-13] MEDS ORDERED: PHENYLEPHRINE-0.9% NACL SYG 1,000 MCG/10 ML SYRINGE ONE (13:16)
[2021-02-13] MEDS ORDERED: ROCURONIUM 10 MG/ML (5 ML VIAL) IV ONE ×2 (13:16→18:25)
[2021-02-13] MEDS ORDERED: NEOSTIGMINE 1 MG/ML 10 ML VIAL ONE ×2 (13:16→18:25)
[2021-02-13] MEDS ORDERED: LIDOCAINE 1% INJ 10MG/ML (20 ML MDV) ONE ×2 (13:16→18:25)
[2021-02-13] MEDS ORDERED: PROPOFOL 10 MG/ML 20 ML VIAL IV ONE ×2 (13:16→18:25)
[2021-02-13] MEDS ORDERED: ROPIVACAINE 5 MG/ML 30 ML VIAL ONE (13:16)
[2021-02-13] MEDS ORDERED: SUCCINYLCHOLINE CHLORIDE 100 MG/5 ML SYR IV ONE ×2 (13:16→18:25)
[2021-02-13] MEDS ORDERED: FUROSEMIDE 10 MG/ML 2 ML VIAL ONE (13:16)
[2021-02-13] MEDS ORDERED: GLYCOPYRROLATE 0.2 MG/ML 2 ML VIAL ONE ×2 (13:16→18:25)
[2021-02-13] MEDS ORDERED: SODIUM CHLORIDE 0.9% (PF) 10 ML VIAL ONE (13:16)
--- NOTE | 2021-02-13 13:21 | P.ANPRN ---
Procedure Note - Anesthesia - Nerve Block Performed Bilateral Erector Spinae Single Time Out Performed: Yes (1254) Date of Procedure: 02/13/21 Procedure Start Time: 12:55 Procedure Stop Time: 13:02 Location of Patient: PreOp Indication: Acute Post-Operative Pain, Requested by Surgeon Specifically requested for management of pain by DrNathaniel: Esteban Carmona Sedation Type: Sedate with meaningful contact maintained Preparation: Sterile Prep Position: Prone Catheter: None Needle Types: Pajunk Needle Gauge: 21 Ultrasound used to visualize needle placement: Yes Ultrasound used to observe medication spread: Yes Injectate: 0.5% Ropivacaine (see comment for volume) (15cc + 15cc nacl pf each side) Blood Aspirated: No Pain Paresthesia on Injection Noted: No Resistance on Injection: Normal Image Stored and Saved: Yes Events: Uneventful and Well Tolerated
[2021-02-13] MEDS ORDERED: ONDANSETRON 4 MG/2 ML VIAL IVP PRN (15:02)
[2021-02-13] MEDS ORDERED: BENZOCAINE/MENTHOL LOZENG 1 EACH LOZENGE MUCOUS MEM PRN (15:02)
[2021-02-13] MEDS ORDERED: KETOROLAC 15 MG/ML 1 ML VIAL IVP PRN (15:02)
--- NOTE | 2021-02-13 15:02 | P.OP ---
Date of Procedure: 02/13/21 Preoperative Diagnosis: Diverticulitis Postoperative Diagnosis: Diverticulitis Procedure(s) Performed: Sigmoid resection Anesthesia: JOSH Surgeon: Esteban Carmona Estimated Blood Loss (ml): 50 Pathology: other (Sigmoid colon) Condition: stable Disposition: PACU Description of Procedure: DESCRIPTION OF PROCEDURE: The patient was placed on the operating table in the supine position. Patient received a general anesthesia. Patient was then placed in the dorsal lithotomy position. The patients abdomen was prepped and draped in the usual sterile fashion. Through a low midline incision, the abdomen was entered. The Verito retractor was placed in the wound. The stomach appeared normal. The small bowel appeared normal. The liver appeared normal. The right colon and transverse colon appeared normal. On the left colon, there was an extensive diverticulosis noted. The sigmoid colon was then mobilized by dividing the white line of Toldt with electrocautery. The sigmoid colon was adhered to the anterior pelvic wall. This was taken down with blunt and sharp dissection. At this point, the proximal sigmoid colon was transected with a GI stapler after a window had been made in the mesentery. The distal sigmoid colon was then dissected. Mesentery was taken down between Brittanie clamps and ligated with #0 silk ties. At a point beyond the lesion, the bowel was then transected with a Proximate stapler. This was then removed. The splenic flexure was then taken down in order to provide adequate lengthening of the sigmoid colon. At this point, the auto purse-string suture device was placed across the proximal colon and fired. The colon was then opened. The 29 mm EEA anvil was then placed into the colon and then the purse- string was secured. The EEA stapler device was then placed in the patients anus and passed into the rectum. The nail for the EEA was then brought out through the distal rectum and then attached to the anvil. The EEA stapler device was then fired. The anastomosis was inspected. There were 2 good donuts of tissue removed from the EEA stapler. The anastomosis was then tested under water and there was no air leak seen. At this point the abdomen was then irrigated. There was no bleeding seen. The fascia was then closed with double stranded #1 PDS. The skin was closed with mendel. The patient tolerated the procedure well.
[2021-02-13] MEDS ORDERED: LACTATED RINGERS 1,000 ML IV ONE ×5 (15:03→19:48)
[2021-02-13] MEDS: fentaNYL (PF) 50 MCG/ML 2 ML AMP IVP PRN ×4 (15:15→15:33)
[2021-02-13] MEDS: HYDROmorphone 0.5 MG/0.5 ML SYRINGE IVP PRN ×8 (15:21→17:08)
[2021-02-13] MEDS ORDERED: hydrALAZINE HCL 20 MG/ML 1 ML VIAL ONE (15:46)
[2021-02-13] MEDS ORDERED: hydrALAZINE HCL 20 MG/ML 1 ML VIAL IVP ONE (15:47)
[2021-02-13] MEDS ORDERED: LIDOCAINE-D5W PMX 2G/250ML 2,000 MG in DEXTROSE/WATER 1 250ML.BAG IV ONE (16:50)
[2021-02-13] MEDS ORDERED: SUGAMMADEX SODIUM 500 MG/5 ML SDV IV ONE (18:25)
[2021-02-13] MEDS ORDERED: LACTATED RINGERS 900 ML IV ONE (18:27)
--- NOTE | 2021-02-13 19:32 | P.OP ---
Date of Procedure: 02/13/21 Preoperative Diagnosis: History of perforated diverticulitis Postoperative Diagnosis: History of perforated diverticulitis Procedure(s) Performed: Sigmoid resection, low anterior section Anesthesia: JOSH Surgeon: Esteban Carmona Estimated Blood Loss (ml): 75 Pathology: other (Sigmoid colon) Condition: stable Disposition: PACU Indications for Procedure: This 70-year-old male who's had multiple hospital admissions for diverticulitis. Patient has had microperforation with abscess in the past. He presents today for sigmoid colon resection Description of Procedure: The patient was placed on the operating table in supine position. He received general endotracheal tube anesthesia. His then placed in dorsal lithotomy position. His abdomen was prepped and draped in sterile fashion. 1 the patient was asleep his abdomen was palpated. There appeared to be a mass in the left lower quadrant. The abdomen was entered through a midline incision. Which causes dissected through the treadwell of the abdominal wall. A Bookwalter transverse colon. There was an obvious sigmoid mass adherent to the left lower quadrant. The mass was dissected free with blunt and sharp dissection. The mass was also on the dome of the bladder. 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 There appeared to be no injury to the bladder. At this point the sigmoid colon was mobilized by the white line of Toldt's. And then the; was transected with SOPHIA stapler. The; mesentery was divided using the Enseal device and then the rectum was transected with the contour stapler. The anvil for the 25 mm EEA stapler was placed into the proximal colon. The anvil secured with a pursestring suture. This point the medical services assistant placed the EEA stapler into the patient's rectum. The spike was driven through the rectal staple line. The endoscope to stapler. The stapler was then closed and fired with. 2 intact tissue rings were withdrawn from stapler after was withdrawn. Next a co chairman was placed across the cyst left colon. And then the colon and rectum were insufflated with air using a rigid sigmoidoscope. There is no evidence of extravasation. The air pressure was high enough to heard escaping through the anus. This point the abdomen was irrigated. There is no bleeding seen. The fascia was closed in looped #1 PDS suture. The skin was closed mendel. A vPrevenana wound system was placed on the skin. Patient top procedure well. Sent to recovery in stable condition.
--- NOTE | 2021-02-13 19:35 | P.PN ---
Progress Note - Text Progress Note Date: 02/13/21 The patient was seen in recovery room. He has had significant hematuria. Given the fact that he had extensive dissection of the colon off of the bladder I discussed with patient that he should be reexplored to evaluate for possible bladder injury. I discussed this with the patient and his daughter.
--- NOTE | 2021-02-13 19:37 | P.OP ---
Date of Procedure: 02/13/21 Preoperative Diagnosis: Hematuria Postoperative Diagnosis: Bladder perforation Procedure(s) Performed: Repair of bladder perforation Anesthesia: JOSH Surgeon: Esteban Carmona Estimated Blood Loss (ml): 50 Pathology: none sent Condition: stable Disposition: PACU Description of Procedure: Patient's placed on the operative table in supine position. He received general endotracheal tube anesthesia. His sterile dressing was removed. His abdomen was prepped and draped in sterile fashion. The mendel removed. The fascial suture was opened. The Bookwalter atrocious wound. There is was approximately 100 mL of fluid in the pleural cavity. The area of the bladder was explored where the colon was removed. There appeared to be a 3 cm opening in the bladder. The bladder was repaired. Using 2-0 Vicryl suture the bladder was repaired in a superficial and deep layer. There is no other injury seen. The abdomen was irrigated there is no bleeding seen. A BLU drain was placed over top of the repair and brought out through separate stab incision. The fascia was closed with looped #1 PDS suture. Skin was closed mendel. Sterile dressing applied. Patient top she will was sent to recovery room in stable condition.
--- NOTE | 2021-02-13 19:39 | P.OP ---
Description of Procedure: Date of Procedure: 02/13/21 Preoperative Diagnosis: History of perforated diverticulitis Postoperative Diagnosis: History of perforated diverticulitis Procedure(s) Performed: Sigmoid resection, low anterior section Anesthesia: BREONNAA Surgeon: Esteban Carmona Estimated Blood Loss (ml): 75 Pathology: other (Sigmoid colon) Condition: stable Disposition: PACU Indications for Procedure: This 70-year-old male who's had multiple hospital admissions for diverticulitis. Patient has had microperforation with abscess in the past. He presents today for sigmoid colon resection Description of Procedure: The patient was placed on the operating table in supine position. He received general endotracheal tube anesthesia. His then placed in dorsal lithotomy position. His abdomen was prepped and draped in sterile fashion. 1 the patient was asleep his abdomen was palpated. There appeared to be a mass in the left lower quadrant. The abdomen was entered through a midline incision. Which causes dissected through the treadwell of the abdominal wall. A Bookwalter transverse colon. There was an obvious sigmoid mass adherent to the left lower quadrant. The mass was dissected free with blunt and sharp dissection. The mass was also on the dome of the bladder. 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 There appeared to be no injury to the bladder. At this point the sigmoid colon was mobilized by the white line of Toldt's. And then the; was transected with SOPHIA stapler. The; mesentery was divided using the Enseal device and then the rectum was transected with the contour stapler. The anvil for the 25 mm EEA stapler was placed into the proximal colon. The anvil secured with a pursestring suture. This point the assistant director of admissions placed the EEA stapler into the patient's rectum. The spike was driven through the rectal staple line. The endoscope to stapler. The stapler was then closed and fired with. 2 intact tissue rings were withdrawn from stapler after was withdrawn. Next a community development officer was placed across the cyst left colon. And then the colon and rectum were insufflated with air using a rigid sigmoidoscope. There is no evidence of extravasation. The air pressure was high enough to heard escaping through the anus. This point the abdomen was irrigated. There is no bleeding seen. The fascia was closed in looped #1 PDS suture. The skin was closed mendel. A vPrevenana wound system was placed on the skin. Patient top procedure well. Sent to recovery in stable condition.
[2021-02-13] MEDS ORDERED: LABETALOL SYRINGE 5 MG/ML IVP ONE (20:05)
[2021-02-13] MEDS: ALVIMOPAN 12 MG CAPSULE PO SCH (21:05)
[2021-02-13 21:38] LABS: Basophils % (A) 0 %; Eosinophils % (A) 0 %; HCT 33.8 % (39.0-53.0); HGB 10.9 gm/dL (13.0-17.5); Lymphocytes # (A) 0.6 k/uL (1.0-4.8); Lymphocytes % (A) 3 %; MCH 30.6 pg (25.0-35.0); MCHC 32.4 g/dL (31.0-37.0); MCV 94.6 fL (80.0-100.0); Mean Platelet Volume 9.9; Monocytes % (A) 5 %; Neutrophils # (A) 17.8 k/uL (1.3-7.7); Neutrophils % (A) 91 %; Platelet Count 319 k/uL (150-450); RBC 3.57 m/uL (4.30-5.90); RDW 13.3 % (11.5-15.5); WBC 19.5 k/uL (3.8-10.6)
[2021-02-13 21:50] LABS: African American GFR (CKD) >90 (>60 ml/min/1.73 sqM); Anion Gap 6 mmol/L; Blood Urea Nitrogen 13 mg/dL (9-20); Calcium 8.1 mg/dL (8.4-10.2); Carbon Dioxide 22 mmol/L (22-30); Chloride 104 mmol/L (98-107); Glucose 164 mg/dL (74-99); Non-African American GFR(CKD) >90 (>60 ml/min/1.73 sqM); Potassium 4.3 mmol/L (3.5-5.1); Sodium 132 mmol/L (137-145)
[2021-02-13] MEDS: HYDROmorphone 1 MG/ML 1 ML SYRINGE IVP PRN (22:07)
[2021-02-14] MEDS: HEPARIN SODIUM,PORCINE/PF 5,000 UNIT/0.5 ML SYRINGE SQ SCH ×3 (00:57→17:42)
[2021-02-14] MEDS: HYDROmorphone 1 MG/ML 1 ML SYRINGE IVP PRN ×6 (00:57→17:05)
[2021-02-14] MEDS: LACTATED RINGERS 1,000 ML IV SCH (07:16)
[2021-02-14] MEDS: ALVIMOPAN 12 MG CAPSULE PO SCH ×2 (07:39→20:20)
[2021-02-14] MEDS: METOCLOPRAMIDE 5 MG/ML 2 ML VIAL IVP PRN (07:47)
[2021-02-14] MEDS ORDERED: SODIUM CHLORIDE 0.9% 1,000 ML IV ONE (08:47)
[2021-02-14] MEDS ORDERED: HYDROmorphone 0.5 MG/0.5 ML SYRINGE IVP ONE ×3 (10:22→22:29)
--- NOTE | 2021-02-14 10:23 | CDI ---
Documentation Clarification Form Date: 02/14/2021 09:58:37 AM From: Ksenia Power RN CCDS Admit Date: 02/13/2021 08:45:00 AM Patient Name: Christopher Conklin Visit Number: [id number] Discharge Date: ATTENTION: The Clinical Documentation Specialists (CDI) and [facility] Coding Staff appreciate your assistance in clarifying documentation. Please respond to the clarification below the line at the bottom and electronically sign. The CDI & [facility] Coding staff will review the response and follow-up if needed. Please note: Queries are made part of the Legal Health Record. If you have any questions, please contact the author of this message via ITS. Dr. Esteban Carmona Bladder perforation is documented 02/13, Procedure note for bladder repair and patient had Sigmoid resection, 02/13. Additional clarification is requested regarding the relationship, if any, that exists between the diagnosis and the procedure. Patients Admitting Diagnosis: History of perforated diverticulitis Post-Operative Diagnosis: History of perforated diverticulitis Procedure performed: Sigmoid resection, low anterior section. History/Risk Factors: 70-year-old male presents with a history of perforated diverticulitis for a sigmoid resection procedure. Medical history: Patient had multiple attacks of diverticulitis last year.02/13, H&P. Clinical Indicators: Sigmoid resection note 02/13: There was an obvious sigmoid mass adherent to the left lower quadrant. The mass was &dissected free with blunt and sharp & dissection. The mass was also on the dome of the bladder. 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 Surgical progress note 02/13: He has significant hematuria. Given the fact that he had extensive dissection of the colon off the bladder I discussed with patient that he should be reexplored to evaluate for possible bladder injury. Bladder repair note 02/13: There is was approximately 100 mL of fluid in the pleural cavity. The area of the bladder was explored where the colon was removed. There appeared to be a 3 cm opening in the bladder. The bladder was repaired. Treatment: 02/13 Repair of bladder perforation. What relationship, if any, exists between the diagnosis of Bladder perforation and the procedure: [ ] Bladder perforation is a complication of surgical procedure [ x ] Bladder perforation is related to patients co-morbid condition(s) of Sigmoid mass adherent to the left lower quadrant of the bladder & not a complication of the procedure [ ] Other please specify ____ [ ] Unable to determine (Template Last Revised: June 2020) MTDD
[2021-02-14] MEDS: PIPERACILLIN-TAZOBACTAM 3.375 GM in SODIUM CHLORIDE 0.9% 100 ML IVPB SCH ×2 (10:29→17:36)
[2021-02-14] MEDS: SODIUM CHLORIDE 0.9% 1,000 ML IV SCH ×2 (10:31→17:04)
[2021-02-14 10:46] LABS: Basophils % (A) 0 %; Eosinophils % (A) 0 %; HCT 35.7 % (39.0-53.0); HGB 11.2 gm/dL (13.0-17.5); Lymphocytes # (A) 1.5 k/uL (1.0-4.8); Lymphocytes % (A) 10 %; MCH 30.2 pg (25.0-35.0); MCHC 31.2 g/dL (31.0-37.0); MCV 96.8 fL (80.0-100.0); Mean Platelet Volume 8.9; Monocytes # (A) 1.3 k/uL (0-1.0); Monocytes % (A) 9 %; Neutrophils # (A) 12.4 k/uL (1.3-7.7); Neutrophils % (A) 80 %; Platelet Count 333 k/uL (150-450); RBC 3.69 m/uL (4.30-5.90); RDW 13.5 % (11.5-15.5); WBC 15.5 k/uL (3.8-10.6)
[2021-02-14 10:59] LABS: ALT 12 U/L (4-49); AST 20 U/L (17-59); African American GFR (CKD) >90 (>60 ml/min/1.73 sqM); Albumin 2.7 g/dL (3.5-5.0); Albumin/Globulin Ratio 0.9; Alkaline Phosphatase 54 U/L (38-126); Anion Gap 5 mmol/L; Blood Urea Nitrogen 12 mg/dL (9-20); Calcium 8.3 mg/dL (8.4-10.2); Carbon Dioxide 27 mmol/L (22-30); Chloride 101 mmol/L (98-107); Globulin 3.1 g/dL; Glucose 101 mg/dL (74-99); Non-African American GFR(CKD) >90 (>60 ml/min/1.73 sqM); Potassium 4.4 mmol/L (3.5-5.1); Sodium 133 mmol/L (137-145); Total Bilirubin 0.3 mg/dL (0.2-1.3); Total Protein 5.8 g/dL (6.3-8.2)
[2021-02-14] MEDS: ACETAMINOPHEN IV (For NPO) 1,000 MG in EMPTY BAG 1 BAG IVPB SCH ×3 (11:19→20:20)
[2021-02-14] MEDS: NICOTINE 21MG/24HR PATCH TRANSDERM SCH (11:21)
[2021-02-14] MEDS: SIMETHICONE 40 MG/0.6 ML DROPS 2,000 MG/30 ML BOTTLE PO SCH ×3 (11:42→20:21)
--- NOTE | 2021-02-14 12:08 | P.PN ---
Progress Note - Text Progress Note Date: 02/14/21 The patient still has significant output through his BLU drain. I discussed the patient's case with Dr. Danielle and have consult and him for evaluation possible urologic injury.
--- NOTE | 2021-02-14 12:15 | P.PN ---
Subjective Progress Note Date: 02/14/21 CHIEF COMPLAINT: History of perforated diverticulitis HISTORY OF PRESENT ILLNESS: Patient is postop day #1 status post sigmoid resection and lower anterior resection. Patient had postoperative hematuria and was taken back to the OR for repair of bladder perforation. Patient has Delatorre catheter in place. Patient's urine output has been low. He received a fluid bolus this morning. He has had a large output from the BLU drain with 780 output over the night and 300 output is morning. The BLU output is serous in color. Patient is complaining of abdominal pain. IV Tylenol was added this morning. He's afebrile. He has mild tachycardia. WBC 19.5 down to 15.5 hemoglobin 10.9 up to 11.2 sodium 133 creatinine 0.80 patient was seen by urology they have sent BLU fluid for creatinine level PHYSICAL EXAM: VITAL SIGNS: Reviewed. GENERAL: Well-developed in no acute distress. HEENT: No sclera icterus. Extraocular movements grossly intact. Moist buccal mucosa. Head is atraumatic, normocephalic. ABDOMEN: Soft. Nondistended. Incision site with prevana dressing is clean dry and intact. BLU drain with serous drainage a few small blood clots noted NEUROLOGIC: Alert and oriented. Cranial nerves II through XII grossly intact. ASSESSMENT: 1. History of perforated diverticulitis status post sigmoid resection and lower anterior resection 2. Bladder perforation status post repair PLAN: -Continue Delatorre catheter -Urology consulted for possible bladder, ureter leak -Continue IV fluids. Normal saline IV fluids increased to 125 mL an hour -Continue pain medication as needed -Continue pain medications -Continue antiemetics -Continue to monitor BLU drain output closely -Continue to monitor urine output -Antibiotics added -Encouraged patient to use incentive spirometer and to increase activity -Abdominal binder ordered -GI prophylaxis Protonix and DVT prophylaxis subcu heparin Physician [employer] note has been reviewed by physician. Signing provider agrees with the documented findings, assessment, and plan of care. Objective - Vital Signs Vital signs: Vital Signs Temp 97.5 F L 02/14/21 07:50 Pulse 100 02/14/21 07:50 Resp 16 02/14/21 07:50 BP 122/69 02/14/21 07:50 Pulse Ox 96 02/14/21 07:50 Intake & Output 10/27/21 10/28/21 10/28/21 18:59 06:59 18:59 Intake Total 4950 600 75 Output Total 400 1305 280 Balance 0329 -995 -378 Weight 68.2 kg 68.2 kg Intake: IV 4950 600 Intake, IV Titration 75 Amount Lactated Ringers 1,000 ml 75 @ 20 mls/hr IV .Q24H [facility] Rx#:[id number] Output: Drainage 780 260 Abdomen 780 260 Urine 200 475 20 Estimated Blood Loss 200 50 Other: Voiding Method Indwelling Catheter - Labs CBC & Chem 7: 02/14/21 09:10 02/14/21 09:10 Labs: Abnormal Lab Results - Last 24 Hours (Table) 02/13/21 02/13/21 02/14/21 Range/Units 21:26 21:26 09:10 WBC 19.5 H 15.5 H (3.8-10.6) k/uL RBC 3.57 L 3.69 L (4.30-5.90) m/uL Hgb 10.9 L 11.2 L (13.0-17.5) gm/dL Hct 33.8 L 35.7 L (39.0-53.0) % Neutrophils # 17.8 H 12.4 H (1.3-7.7) k/uL Lymphocytes # 0.6 L (1.0-4.8) k/uL Monocytes # 1.3 H (0-1.0) k/uL Sodium 132 L (137-145) mmol/L Glucose 164 H (74-99) mg/dL Calcium 8.1 L (8.4-10.2) mg/dL Total Protein (6.3-8.2) g/dL Albumin (3.5-5.0) g/dL 02/14/21 Range/Units 09:10 WBC (3.8-10.6) k/uL RBC (4.30-5.90) m/uL Hgb (13.0-17.5) gm/dL Hct (39.0-53.0) % Neutrophils # (1.3-7.7) k/uL Lymphocytes # (1.0-4.8) k/uL Monocytes # (0-1.0) k/uL Sodium 133 L (137-145) mmol/L Glucose 101 H (74-99) mg/dL Calcium 8.3 L (8.4-10.2) mg/dL Total Protein 5.8 L (6.3-8.2) g/dL Albumin 2.7 L (3.5-5.0) g/dL
--- NOTE | 2021-02-14 13:04 | P.CONS ---
History of Present Illness - Reason for Consult Consult date: 02/14/21 Medical management Requesting physician: Esteban Carmona - Chief Complaint Abdominal pain - History of Present Illness This is a pleasant 70-year-old patient who follows with Dr. Ramirez. Chronic stable medical conditions include hyperlipidemia, history of prostate cancer in 2006 that was treated with surgery. Patient's had recurrent bouts of diverticulitis. He had microperforation with abscesses in the past. Patient with it for a scheduled sigmoid colon resection. Yesterday evening he underwent sigmoid resection with low anterior resection. In the recovery room patient was noted to have blood in the Delatorre catheter. It persisted. Patient was taken back to the operating room. They appeared to be a 3 cm opening of the bladder. That was repaired. 100 mL of fluid was removed from the abdominal cavity. BLU drain was placed. On top of the repaired. This morning patient having some abdominal pain. No nausea vomiting. Has been started on a clear liquid diet. Patient denies any chest pain or shortness of breath. Review of systems: GEN.: Tired EYES: None HEENT: None NECK: None RESPIRATORY: None CARDIOVASCULAR: None GASTROINTESTINAL: As above GENITOURINARY: Delatorre catheter. 15 urine MUSCULOSKELETAL: None LYMPHATICS: None HEMATOLOGICAL: None PSYCHIATRY: None NEUROLOGICAL: None Past medical history to include: Hyperlipidemia, recurrent diverticulitis with microperforation, prostate cancer with surgery in 2006 Social history: Smoking a pack a day for last 50 years. Lives alone. I'll call occasionally. 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 Family history: Reviewed, noncontributory to presentation Physical examination: VITAL SIGNS: 97.5, 100, 16, 122/69, 96% on 3 L GENERAL: BMI 22.9, reclining in bed, awake. EYES: Pupils equal. Conjunctiva normal. HEENT: External appearance of nose and ears normal, oral cavity grossly normal. NECK: JVD not raised; masses not palpable. HEART: First and second heart sounds are normal; no edema. LUNGS: Respiratory rate normal; decreased breath sounds. ABDOMEN: Soft, tender, liver spleen not palpable, no masses palpable. BLU drain. Local wound VAC. Delatorre catheter with clear urine PSYCH: Alert and oriented x3; mood and affect normal. NEUROLOGICAL: Cranial nerves grossly intact; no facial asymmetry, power and sensation grossly intact. LYMPHATICS: No lymph nodes palpable in the axilla and neck INVESTIGATIONS, reviewed in the clinical context: White count 15.5 hemoglobin 11.2 platelets 333 potassium 4.4 creatinine 0.8 Albumin 2.7 Coronavirus [PCR]: Not detected Assessment and plan: -Sigmoid resection with low anterior resection for recurrent diverticulitis BLU drain -Acute hematuria from bladder wall trauma/perforation during surgery. Repaired. Delatorre catheter. Urine is now clear. -Hyperlipidemia Lipitor 80 mg daily -Chronic nicotine dependence, cigarette smoker Nicotine patch -Hypoalbuminemia, acute phase reactant -Normocytic anemia likely from chronic diverticulitis Follow H&H -Mild hyponatremia IV fluids. Follow labs Patient getting IV fluids. IV Zosyn. Venodyne boots. Patient on clear liquids. Nicotine patch. Care was discussed with the patient. Questions answered. Thank you Dr. Carmona Past Medical History Past Medical History: Cancer, Hyperlipidemia Additional Past Medical History / Comment(s): Diverticulitis,prostate CA 2006 History of Any Multi-Drug Resistant Organisms: None Reported Past Surgical History: Prostate Surgery Additional Past Surgical History / Comment(s): prostatectomy Past Anesthesia/Blood Transfusion Reactions: No Reported Reaction Additional Past Anesthesia/Blood Transfusion Reaction / Comm: no hx blood transfusion Past Psychological History: No Psychological Hx Reported Smoking Status: Current every day smoker Past Alcohol Use History: Occasional Additional Past Alcohol Use History / Comment(s): started smoking at age 19 Past Drug Use History: None Reported - Past Family History Father Family Medical History: No Reported History Medications and Allergies Home Medications Medication Instructions Recorded Confirmed Type Ascorbic Acid [Vitamin C] 1,000 mg PO DAILY 12/13/20 02/13/21 History Aspirin EC [Ecotrin] 325 mg PO DAILY 12/13/20 02/13/21 History Atorvastatin Calcium [Lipitor] 80 mg PO DAILY 12/13/20 02/13/21 History Multivitamins, Thera [Multivitamin 1 tab PO DAILY 12/13/20 02/13/21 History (formulary)] Allergies Allergy/AdvReac Type Severity Reaction Status Date / Time No Known Allergies Allergy Verified 02/13/21 09:31 Physical Exam Vitals: Vital Signs Temp Pulse Pulse Resp BP Pulse Ox 02/14/21 07:50 97.5 F L 100 16 122/69 96 02/14/21 01:13 99.0 F 111 H 16 132/67 97 02/14/21 00:10 95 02/13/21 22:30 109 H 126/71 02/13/21 22:15 108 H 131/75 02/13/21 22:00 108 H 130/77 02/13/21 21:45 101 H 154/82 02/13/21 21:30 112 H 150/77 02/13/21 21:15 112 H 139/75 02/13/21 21:07 16 02/13/21 21:00 98.7 F 113 H 15 143/75 95 02/13/21 20:33 104 H 16 142/66 94 L 02/13/21 20:18 109 H 96 H 154/74 97 02/13/21 20:02 130 H 18 176/81 98 02/13/21 19:48 112 H 16 182/79 100 02/13/21 19:36 98.4 F 116 H 16 179/79 99 02/13/21 18:17 116 H 18 148/65 92 L 02/13/21 18:03 123 H 18 149/72 92 L 02/13/21 17:48 122 H 18 150/66 93 L 02/13/21 17:33 122 H 18 148/70 93 L 02/13/21 17:18 123 H 18 154/70 95 02/13/21 17:03 119 H 18 100 02/13/21 16:48 117 H 18 158/73 100 02/13/21 16:18 121 H 20 164/74 100 02/13/21 16:03 109 H 16 167/74 100 02/13/21 15:47 108 H 24 158/79 100 02/13/21 15:30 89 22 220/95 100 02/13/21 15:10 99.7 F H 81 22 173/79 98 02/13/21 13:09 85 18 126/65 97 02/13/21 09:58 97.4 F L 101 H 18 152/73 98 Intake and Output 02/13/21 02/14/21 02/14/21 22:59 06:59 14:59 Intake Total 4400 75 Output Total 620 685 210 Balance 9053 -366 -216 Intake: IV 4400 Intake, IV Titration 75 Amount Lactated Ringers 1,000 ml 75 @ 20 mls/hr IV .Q24H [facility] Rx#:[id number] Output: Drainage 220 560 190 Abdomen 220 560 190 Urine 350 125 20 Estimated Blood Loss 50 Other: Voiding Method Indwelling Catheter Weight 68.2 kg Results CBC & Chem 7: 02/14/21 09:10 02/14/21 09:10 Labs: Abnormal Lab Results - Last 24 Hours (Table) 02/13/21 02/13/21 02/13/21 Range/Units 09:53 21:26 21:26 WBC 19.5 H (3.8-10.6) k/uL RBC 3.57 L (4.30-5.90) m/uL Hgb 10.9 L (13.0-17.5) gm/dL Hct 33.8 L (39.0-53.0) % Neutrophils # 17.8 H (1.3-7.7) k/uL Lymphocytes # 0.6 L (1.0-4.8) k/uL APTT 32.5 H (22.0-30.0) sec Sodium 132 L (137-145) mmol/L Glucose 164 H (74-99) mg/dL Calcium 8.1 L (8.4-10.2) mg/dL
[2021-02-14] MEDS: PANTOPRAZOLE 40 MG/10 ML VIAL IVP SCH (14:05)
--- NOTE | 2021-02-14 17:06 | FL ---
EXAMINATION TYPE: FL cystogram DATE OF EXAM: 02/14/2021 COMPARISON: NONE HISTORY: Pt had a bladder perforation fixed surgically on 02/13/2021. TECHNIQUE: Fluoroscopy.2 min 12 sec fl. Contrast: 125 mL Cystografin FINDINGS: A cystogram was performed following retrograde instillation of contrast via the patient's i ndwelling catheter. Patient only tolerated 125 cc of contrast which limits evaluation. In addition th e patient had difficulty in the BANEGAS, ECUADOREAN and lateral positioning. During the instillation of contrast there is irregularity noted at the dome of the bladder with possi ble small leak noted. Post drain film however demonstrates moderate amount of contrast within the lef t hemiabdomen superior to the left iliac crest. The findings are compatible with leak. IMPRESSION: Urinary bladder leak as noted above. Suspect urinary bladder dome site of perforation.
--- NOTE | 2021-02-14 19:16 | P.GSCN ---
History of Present Illness Consult date: 02/14/21 Reason for Consult: Bladder laceration Requesting physician: Esteban Carmona History of present illness: The patient is a 70-year-old white male who underwent a robotic-assisted laparoscopic prostatectomy (RALP) in 2006 in [place], [place]. He has not received any adjuvant therapy. He states that his PSA levels are undetectable. He denies urinary incontinence. He has been treated this year for multiple episodes of diverticulitis. He underwent CT guided drainage of a diverticular abscess in November. He underwent a low anterior resection yesterday. Postoperatively, blood was noted in the Delatorre catheter and bladder injury was suspected by Dr. Carmona, who took the patient back to the operating room and repaired a bladder laceration. However, since that time there has been significant drainage from the BLU drain. A cystogram was performed earlier today, showing extravasation of contrast. Review of Systems - Constitutional Denies chills, Denies fever - Genitourinary Reports as per HPI Past Medical History Past Medical History: Cancer, Hyperlipidemia Additional Past Medical History / Comment(s): Diverticulitis,prostate CA 2006 History of Any Multi-Drug Resistant Organisms: None Reported Past Surgical History: Prostate Surgery Additional Past Surgical History / Comment(s): prostatectomy Past Anesthesia/Blood Transfusion Reactions: No Reported Reaction Additional Past Anesthesia/Blood Transfusion Reaction / Comm: no hx blood transfusion Past Psychological History: No Psychological Hx Reported Smoking Status: Current every day smoker Past Alcohol Use History: Occasional Additional Past Alcohol Use History / Comment(s): started smoking at age 19 Past Drug Use History: None Reported - Past Family History Father Family Medical History: No Reported History Medications and Allergies Home Medications Medication Instructions Recorded Confirmed Type Ascorbic Acid [Vitamin C] 1,000 mg PO DAILY 12/13/20 02/13/21 History Aspirin EC [Ecotrin] 325 mg PO DAILY 12/13/20 02/13/21 History Atorvastatin Calcium [Lipitor] 80 mg PO DAILY 12/13/20 02/13/21 History Multivitamins, Thera [Multivitamin 1 tab PO DAILY 12/13/20 02/13/21 History (formulary)] Allergies Allergy/AdvReac Type Severity Reaction Status Date / Time No Known Allergies Allergy Verified 02/13/21 09:31 Surgical - Exam Vital Signs Temp Pulse Resp BP Pulse Ox 97.4 F L 101 H 18 152/73 98 02/13/21 09:58 02/13/21 09:58 02/13/21 09:58 02/13/21 09:58 02/13/21 09:58 - General well developed, well nourished, no distress - Respiratory normal respiratory effort - Abdomen Soft, non-distended. Dressing dry and intact. - Psychiatric oriented to time, oriented to person, oriented to place, speech is normal, memory intact Results - Labs 02/14/21 09:10 02/14/21 09:10 Abnormal Lab Results - Last 24 Hours (Table) 02/13/21 02/13/21 02/14/21 Range/Units 21:26 21:26 09:10 WBC 19.5 H 15.5 H (3.8-10.6) k/uL RBC 3.57 L 3.69 L (4.30-5.90) m/uL Hgb 10.9 L 11.2 L (13.0-17.5) gm/dL Hct 33.8 L 35.7 L (39.0-53.0) % Neutrophils # 17.8 H 12.4 H (1.3-7.7) k/uL Lymphocytes # 0.6 L (1.0-4.8) k/uL Monocytes # 1.3 H (0-1.0) k/uL Sodium 132 L (137-145) mmol/L Glucose 164 H (74-99) mg/dL Calcium 8.1 L (8.4-10.2) mg/dL Total Protein (6.3-8.2) g/dL Albumin (3.5-5.0) g/dL 02/14/21 Range/Units 09:10 WBC (3.8-10.6) k/uL RBC (4.30-5.90) m/uL Hgb (13.0-17.5) gm/dL Hct (39.0-53.0) % Neutrophils # (1.3-7.7) k/uL Lymphocytes # (1.0-4.8) k/uL Monocytes # (0-1.0) k/uL Sodium 133 L (137-145) mmol/L Glucose 101 H (74-99) mg/dL Calcium 8.3 L (8.4-10.2) mg/dL Total Protein 5.8 L (6.3-8.2) g/dL Albumin 2.7 L (3.5-5.0) g/dL Diabetes panel 02/13/21 02/14/21 Range/Units 21:26 09:10 Sodium 132 L 133 L (137-145) mmol/L Potassium 4.3 4.4 (3.5-5.1) mmol/L Chloride 104 101 (98-107) mmol/L Carbon Dioxide 22 27 (22-30) mmol/L BUN 13 12 (9-20) mg/dL Creatinine 0.71 0.80 (0.66-1.25) mg/dL Glucose 164 H 101 H (74-99) mg/dL Calcium 8.1 L 8.3 L (8.4-10.2) mg/dL AST 20 (17-59) U/L ALT 12 (4-49) U/L Alkaline Phosphatase 54 (38-126) U/L Total Protein 5.8 L (6.3-8.2) g/dL Albumin 2.7 L (3.5-5.0) g/dL Calcium panel 02/13/21 02/14/21 Range/Units 21:26 09:10 Calcium 8.1 L 8.3 L (8.4-10.2) mg/dL Albumin 2.7 L (3.5-5.0) g/dL Pituitary panel 02/13/21 02/14/21 Range/Units 21:26 09:10 Sodium 132 L 133 L (137-145) mmol/L Potassium 4.3 4.4 (3.5-5.1) mmol/L Chloride 104 101 (98-107) mmol/L Carbon Dioxide 22 27 (22-30) mmol/L BUN 13 12 (9-20) mg/dL Creatinine 0.71 0.80 (0.66-1.25) mg/dL Glucose 164 H 101 H (74-99) mg/dL Calcium 8.1 L 8.3 L (8.4-10.2) mg/dL Adrenal panel 02/13/21 02/14/21 Range/Units 21:26 09:10 Sodium 132 L 133 L (137-145) mmol/L Potassium 4.3 4.4 (3.5-5.1) mmol/L Chloride 104 101 (98-107) mmol/L Carbon Dioxide 22 27 (22-30) mmol/L BUN 13 12 (9-20) mg/dL Creatinine 0.71 0.80 (0.66-1.25) mg/dL Glucose 164 H 101 H (74-99) mg/dL Calcium 8.1 L 8.3 L (8.4-10.2) mg/dL Total Bilirubin 0.3 (0.2-1.3) mg/dL AST 20 (17-59) U/L ALT 12 (4-49) U/L Alkaline Phosphatase 54 (38-126) U/L Total Protein 5.8 L (6.3-8.2) g/dL Albumin 2.7 L (3.5-5.0) g/dL - Imaging CT scan - pelvis: report reviewed, image reviewed Assessment and Plan (1) Bladder laceration as postoperative complication Current Visit: Yes Status: Acute Code(s): N99.89 - OTH POSTPROCEDURAL COMPLICATIONS AND DISORDERS OF SYS SNOMED Code(s): 298257648 Plan: I intend to perform an exploratory laparotomy, at which time the bladder will be inspected and evaluated for any additional areas of extravasation. The rationale for this is been reviewed in detail with the patient and his daughter. They are aware of potential risks, which include anesthesia, bleeding, infection, and persistent leak.
[2021-02-14] MEDS ORDERED: DEXAMETHASONE SOD PHOSPHATE 10 MG/ML 1 ML VIAL ONE (20:01)
[2021-02-14] MEDS ORDERED: GLYCOPYRROLATE 0.2 MG/ML 2 ML VIAL ONE (20:01)
[2021-02-14] MEDS ORDERED: HYDROmorphone (PF) 1 MG/ML ONE (20:01)
[2021-02-14] MEDS ORDERED: PROPOFOL 10 MG/ML 20 ML VIAL IV ONE (20:01)
[2021-02-14] MEDS ORDERED: NEOSTIGMINE 1 MG/ML 10 ML VIAL ONE (20:01)
[2021-02-14] MEDS ORDERED: ROCURONIUM 10 MG/ML (5 ML VIAL) IV ONE (20:01)
[2021-02-14] MEDS ORDERED: ONDANSETRON 4 MG/2 ML VIAL ONE (20:01)
[2021-02-14] MEDS ORDERED: fentaNYL (PF) 50 MCG/ML 2 ML AMP ONE (20:01)
[2021-02-14] MEDS ORDERED: ESMOLOL 100 MG/10 ML VIAL ONE (20:01)
[2021-02-14] MEDS ORDERED: SUCCINYLCHOLINE CHLORIDE 100 MG/5 ML SYR IV ONE (20:01)
[2021-02-14] MEDS ORDERED: LIDOCAINE 1% INJ 10MG/ML (20 ML MDV) ONE (20:01)
[2021-02-14] MEDS ORDERED: IV FLUID CONTINUATION 1,000 ML IV ONE (20:06)
[2021-02-14] MEDS ORDERED: LACTATED RINGERS 1,000 ML IV ONE (20:53)
--- NOTE | 2021-02-14 21:59 | P.OP ---
Date of Procedure: 02/14/21 Preoperative Diagnosis: Bladder laceration Postoperative Diagnosis: Same Procedure(s) Performed: Exploratory laparotomy, repair of bladder laceration Anesthesia: JOSH Surgeon: Collin Danielle Donor Specialist #1: Esteban Carmona Estimated Blood Loss (ml): 50 IV fluids (ml): 1,000 Pathology: none sent Condition: stable Disposition: PACU Indications for Procedure: The patient is a 70-year-old white male who underwent a robotic-assisted lap aroscopic prostatectomy (RALP) in 2006 in [place], [place]. He has not received any adjuvant therapy. He states that his PSA levels are undetectable. He denies urinary incontinence. He has been treated this year for multiple episodes of diverticulitis. He underwent CT guided drainage of a diverticular abscess in November. He underwent a low anterior resection yesterday. Postoperatively, blood was noted in the Delatorre catheter and bladder injury was suspected by Dr. Carmona, who took the patient back to the operating room and repaired a bladder laceration. However, since that time there has been significant drainage from the BLU drain. A cystogram was performed earlier today, showing extravasation of contrast. He now comes for exploratory laparotomy with repair of bladder laceration. Operative Findings: Bladder dome laceration. Significant perivesical inflammation and thickening. Description of Procedure: The patient was taken to the operating room and placed in the supine position. The Delatorre catheter and BLU drain were removed, as were the surgical mendel. The abdomen and external genitalia were prepped and draped sterilely. An 18-Turkmen Delatorre catheter was placed. The entire length of the wound was opened by removing the fascial sutures. Inferiorly, the incision was extended down to the pubis. Upon entering the bladder, the bladder dome was inspected at the area of the known laceration repair. Normal saline was instilled into the bladder via the Delatorre catheter. Extravasation of irrigant was noted. A right angle clamp was placed through the bladder dome laceration and pushed up against the anterior bladder wall, as the bladder was so thickened and there was so much perivesical inflammation that identification of the bladder was difficult. With the anterior bladder wall identified, the Bovie electrocautery was used to make an anterior midline cystotomy incision. The bladder was inspected through this incision. No additional areas of bladder injury were noted, though visualization into the bladder was limited. Ultimately, the cystotomy incision was extended to the bladder dome laceration. All existing sutures used in the bladder repair were removed. As stated, the bladder wall was very thickened, with significant perivesical inflammation and scarring. I was concerned at this time whether or not a tension-free bladder closure could be obtained. Therefore, dissection was performed bilaterally to mobilize the bladder using a combination of sharp and blunt dissection. Once this was accomplished, the bladder closure was performed. The mucosa and superficial muscle were closed using 3-0 Vicryl suture in a running fashion. 2-0 Vicryl suture was then used in a running fashion to close the detrusor muscle. 120 mL of normal saline was then instilled into the bladder. There was no extravasation of irrigant noted. The catheter irrigated freely. Hemostasis within the abdomen was excellent. A BLU drain was brought out through a stab incision on the right side of the midline surgical incision. The drain was left adjacent to the bladder. The fascia was closed using looped #1 PDS suture in a running fashion. The skin was closed using mendel. A sterile gauze dressing was applied over the incision. A prevena wound vac system was placed on the skin. The Delatorre catheter was connected to gravity drainage. The BLU drain was attached to bulb suction. All sponge and needle counts were correct. The patient tolerated the procedure well was taken to the recovery room in stable condition.
[2021-02-15] MEDS: HYDROmorphone 1 MG/ML 1 ML SYRINGE IVP PRN ×5 (00:11→17:51)
[2021-02-15] MEDS: HEPARIN SODIUM,PORCINE/PF 5,000 UNIT/0.5 ML SYRINGE SQ SCH ×3 (00:30→15:28)
[2021-02-15] MEDS: PIPERACILLIN-TAZOBACTAM 3.375 GM in SODIUM CHLORIDE 0.9% 100 ML IVPB SCH ×3 (00:30→15:28)
[2021-02-15] MEDS: SODIUM CHLORIDE 0.9% 1,000 ML IV SCH ×3 (01:30→14:35)
[2021-02-15] MEDS: LACTATED RINGERS 1,000 ML IV SCH (01:32)
[2021-02-15] MEDS: ACETAMINOPHEN IV (For NPO) 1,000 MG in EMPTY BAG 1 BAG IVPB SCH (03:43)
[2021-02-15] MEDS: ALVIMOPAN 12 MG CAPSULE PO SCH ×2 (07:33→22:03)
[2021-02-15] MEDS: SIMETHICONE 40 MG/0.6 ML DROPS 2,000 MG/30 ML BOTTLE PO SCH ×4 (07:34→22:03)
[2021-02-15] MEDS: PANTOPRAZOLE 40 MG/10 ML VIAL IVP SCH (07:53)
[2021-02-15] MEDS: NICOTINE 21MG/24HR PATCH TRANSDERM SCH (07:53)
--- NOTE | 2021-02-15 08:37 | P.PN ---
Subjective Progress Note Date: 02/15/21 Principal diagnosis: POD #1, s/p repair of bladder laceration The patient experienced pain overnight, which is better controlled this morning. He has an NG tube in place. Objective - Vital Signs Vital signs: Vital Signs Temp 97.9 F 02/15/21 06:40 Pulse 121 H 02/15/21 06:40 Resp 16 02/15/21 06:40 BP 107/72 02/15/21 06:40 Pulse Ox 99 02/15/21 06:40 Intake & Output 02/14/21 02/15/21 02/15/21 18:59 06:59 18:59 Intake Total 1775 1350 Output Total 840 450 Balance 935 900 Intake: IV 1350 Intake, IV Titration 1775 Amount ACETAMINOPHEN IV (For NPO 100 ) 1,000 mg In Empty Bag 1 bag @ 400 mls/hr IVPB Q6H [facility] Rx#:[id number] Lactated Ringers 1,000 ml 75 @ 20 mls/hr IV .Q24H [facility] Rx#:[id number] Piperacillin-Tazobactam 3 100 .375 gm In Sodium Chloride 0.9% 100 ml @ 25 mls/hr IVPB Q8HR [facility] Rx# :[id number] Sodium Chloride 0.9% 1, 500 000 ml @ 125 mls/hr IV . Q8H [facility] Rx#:[id number] Sodium Chloride 0.9% 1, 1000 000 ml @ 999 mls/hr IV . Q1H1M [facility] Rx#:[id number] Output: Drainage 460 100 Abdomen 460 100 Urine 380 300 Estimated Blood Loss 50 Other: Voiding Method Indwelling Catheter - Constitutional General appearance: Present: cooperative, no acute distress - Gastrointestinal Gastrointestinal Comment(s): Soft, non-distended. Dressing dry and intact. Minimal BLU output (sanguinous). Adequate urine output. - Labs CBC & Chem 7: 02/14/21 09:10 02/14/21 09:10 Labs: Abnormal Lab Results - Last 24 Hours (Table) 02/14/21 02/14/21 Range/Units 09:10 09:10 WBC 15.5 H (3.8-10.6) k/uL RBC 3.69 L (4.30-5.90) m/uL Hgb 11.2 L (13.0-17.5) gm/dL Hct 35.7 L (39.0-53.0) % Neutrophils # 12.4 H (1.3-7.7) k/uL Monocytes # 1.3 H (0-1.0) k/uL Sodium 133 L (137-145) mmol/L Glucose 101 H (74-99) mg/dL Calcium 8.3 L (8.4-10.2) mg/dL Total Protein 5.8 L (6.3-8.2) g/dL Albumin 2.7 L (3.5-5.0) g/dL Assessment and Plan (1) Bladder laceration as postoperative complication Current Visit: Yes Status: Acute Code(s): N99.89 - OTH POSTPROCEDURAL COMPLICATIONS AND DISORDERS OF SYS SNOMED Code(s): 778693421 Plan: Continue Delatorre catheter drainage. The patient was advised that the catheter will remain in place for 14-21 days, and that a cystogram will be obtained prior to catheter removal. Once his ileus resolves, the NG tube will be removed and diet initiated.
[2021-02-15 09:29] LABS: Potassium 4.7 mmol/L (3.5-5.1)
[2021-02-15 09:30] LABS: African American GFR (CKD) 67 (>60 ml/min/1.73 sqM); Anion Gap 8 mmol/L; Blood Urea Nitrogen 17 mg/dL (9-20); Calcium 7.6 mg/dL (8.4-10.2); Carbon Dioxide 20 mmol/L (22-30); Chloride 106 mmol/L (98-107); Glucose 137 mg/dL (74-99); Non-African American GFR(CKD) 58 (>60 ml/min/1.73 sqM); Sodium 134 mmol/L (137-145)
[2021-02-15 09:46] LABS: Basophils % (A) 0 %; Eosinophils % (A) 0 %; HCT 23.4 % (39.0-53.0); Lymphocytes # (A) 1.1 k/uL (1.0-4.8); Lymphocytes % (A) 6 %; MCH 31.4 pg (25.0-35.0); MCHC 33.1 g/dL (31.0-37.0); Mean Platelet Volume 9.8; Monocytes # (A) 1.3 k/uL (0-1.0); Monocytes % (A) 7 %; Neutrophils # (A) 16.1 k/uL (1.3-7.7); Neutrophils % (A) 86 %; Platelet Count 351 k/uL (150-450); RBC 2.46 m/uL (4.30-5.90); RDW 13.9 % (11.5-15.5); WBC 18.8 k/uL (3.8-10.6)
[2021-02-15 09:47] LABS: HGB 7.7 gm/dL (13.0-17.5)
[2021-02-15] MEDS ORDERED: SODIUM CHLORIDE 0.9% 1,000 ML IV ONE (10:20)
[2021-02-15] MEDS: metroNIDAZOLE-NS PMX 500 MG in SALINE 1 100ML.BAG IVPB SCH ×2 (11:30→17:50)
--- NOTE | 2021-02-15 13:02 | P.PN ---
Subjective Progress Note Date: 02/15/21 CHIEF COMPLAINT: History of perforated diverticulitis HISTORY OF PRESENT ILLNESS: Patient is postop day #2 status post sigmoid resection and lower anterior resection. Patient had postoperative hematuria and was taken back to the OR for repair of bladder perforation. Patient was seen by urology. Had cystogram completed yesterday showing urinary bladder leak. Patient was taken back to the OR yesterday and is status post exploratory laparotomy and repair of bladder dome laceration by Dr. Danielle and Dr. Carmona. Patient's pain is better controlled. He is tachycardic received fluid bolus during the night and is receiving a fluid bolus this morning. BLU drain output is now a sanguinous in color. Patient has Delatorre catheter in place. Urine output had been low this morning. Afebrile. tachycardic blood pressure shown improvement. WBC 18.8 hemoglobin dropped from 11.2-7.7 platelets 351 creatinine 1.26 patient denies any flatus or BM. BLU drain with 100 mL output minimal output through NG tube. Urine output is clearer. PHYSICAL EXAM: VITAL SIGNS: Reviewed. GENERAL: Well-developed in no acute distress. HEENT: No sclera icterus. Extraocular movements grossly intact. Moist buccal mucosa. Head is atraumatic, normocephalic. ABDOMEN: Soft. Nondistended. Incision site with prevana dressing is clean dry and intact. BLU drain with sanguinous output NEUROLOGIC: Alert and oriented. Cranial nerves II through XII grossly intact. ASSESSMENT: 1. History of perforated diverticulitis status post sigmoid resection and lower anterior resection 2. Bladder laceration status post repair 3. Anemia likely dilutional due to IV fluids. PLAN: -Continue Delatorre catheter. Do not remove Delatorre catheter until order given by surgeon or urologist -1 L IV fluid bolus given for low urine output and tachycardia. Patient is dry -Continue NG tube for decompression -Continue IV fluids -Discontinue Toradol due to elevated creatinine -Repeat CBC and BMP in a.m. -Continue pain medication as needed -Continue antiemetics -Continue antibiotics -Encouraged patient to use incentive spirometer and to increase activity -GI prophylaxis Protonix and DVT prophylaxis subcu heparin Physician Pricing Consultant note has been reviewed by physician. Signing provider agrees with the documented findings, assessment, and plan of care. Objective - Vital Signs Vital signs: Vital Signs Temp 97.6 F 02/15/21 08:00 Pulse 118 H 02/15/21 08:00 Resp 16 02/15/21 08:00 BP 113/73 02/15/21 08:00 Pulse Ox 99 02/15/21 08:00 Intake & Output 02/14/21 02/15/21 02/15/21 18:59 06:59 18:59 Intake Total 1775 1350 Output Total 840 450 Balance 935 900 Intake: IV 1350 Intake, IV Titration 1775 Amount ACETAMINOPHEN IV (For NPO 100 ) 1,000 mg In Empty Bag 1 bag @ 400 mls/hr IVPB Q6H [facility] Rx#:[id number] Lactated Ringers 1,000 ml 75 @ 20 mls/hr IV .Q24H [facility] Rx#:[id number] Piperacillin-Tazobactam 3 100 .375 gm In Sodium Chloride 0.9% 100 ml @ 25 mls/hr IVPB Q8HR [facility] Rx# :[id number] Sodium Chloride 0.9% 1, 500 000 ml @ 125 mls/hr IV . Q8H [facility] Rx#:[id number] Sodium Chloride 0.9% 1, 1000 000 ml @ 999 mls/hr IV . Q1H1M [facility] Rx#:[id number] Output: Drainage 460 100 Abdomen 460 100 Urine 380 300 Estimated Blood Loss 50 Other: Voiding Method Indwelling Catheter - Labs CBC & Chem 7: 02/15/21 08:29 02/15/21 08:29 Labs: Abnormal Lab Results - Last 24 Hours (Table) 02/15/21 02/15/21 Range/Units 08:29 08:29 WBC 18.8 H (3.8-10.6) k/uL RBC 2.46 L (4.30-5.90) m/uL Hgb 7.7 L D (13.0-17.5) gm/dL Hct 23.4 L (39.0-53.0) % Neutrophils # 16.1 H (1.3-7.7) k/uL Monocytes # 1.3 H (0-1.0) k/uL Sodium 134 L (137-145) mmol/L Carbon Dioxide 20 L (22-30) mmol/L Creatinine 1.26 H (0.66-1.25) mg/dL Glucose 137 H (74-99) mg/dL Calcium 7.6 L (8.4-10.2) mg/dL
--- NOTE | 2021-02-15 17:50 | P.PN ---
Progress Note - Text Progress Note Date: 02/15/21 - Chief Complaint Abdominal pain This is a pleasant 70-year-old patient who follows with Dr. Ramirez. Chronic stable medical conditions include hyperlipidemia, history of prostate cancer in 2007 that was treated with surgery. Patient's had recurrent bouts of diverticulitis. He had microperforation with abscesses in the past. Patient with it for a scheduled sigmoid colon resection. Yesterday evening he underwent sigmoid resection with low anterior resection. In the recovery room patient was noted to have blood in the Delatorre catheter. It persisted. Patient was taken back to the operating room. They appeared to be a 3 cm opening of the bladder. That was repaired. 100 mL of fluid was removed from the abdominal cavity. BLU drain was placed. On top of the repaired. This morning patient having some abdominal pain. No nausea vomiting. Has been started on a clear liquid diet. Patient denies any chest pain or shortness of breath. February 15: Yesterday evening patient is having copious amount of output to the BLU drain. Cystogram confirmed extravasation of urine. Patient was taken back to the operating room by Dr. Carmona and Dr. Duran. Previous sutures from the bladder wall was removed and extravasation site was repaired. Patient has a Delatorre catheter. Slight bloody drainage. Has a BLU drain. Abdominal wound VAC. Some abdominal distention. NG tube to suction. Some old pain. IV Flagyl being added Review of systems: Was done for constitutional, cardiovascular, GI, pulmonary. relevant finding as above Active Medications Alvimopan (Alvimopan 12 Mg Capsule) 12 mg PO BID [facility] Stop: 02/20/21 09:01 Last Admin: 02/15/21 07:33 Dose: Not Given Documented by: Benzocaine/Menthol (Benzocaine/Menthol Lozeng 1 Each Lozenge) 1 each MUCOUS MEM Q1HR PRN PRN Reason: Sore Throat Heparin Sodium (Porcine) (Heparin Sodium,Porcine/Pf 5,000 Unit/0.5 Ml Syringe) 5,000 unit SQ Q8HR [facility] Last Admin: 02/15/21 15:28 Dose: 5,000 unit Documented by: Hydromorphone HCl (Hydromorphone 1 Mg/Ml 1 Ml Syringe) 1 mg IVP Q2HR PRN PRN Reason: Severe Pain Last Admin: 02/15/21 14:35 Dose: 1 mg Documented by: Piperacillin Sod/Tazobactam (Sod 3.375 gm/ Sodium Chloride) 100 mls @ 25 mls/hr IVPB Q8HR [facility] Last Admin: 02/15/21 15:28 Dose: 25 mls/hr Documented by: Sodium Chloride (Saline 0.9%) 1,000 mls @ 125 mls/hr IV .Q8H [facility] Last Admin: 02/15/21 14:35 Dose: 125 mls/hr Documented by: Metronidazole 500 mg/ IV (Solution) 100 mls @ 100 mls/hr IVPB Q6HR [facility] Last Admin: 02/15/21 11:30 Dose: 100 mls/hr Documented by: Lidocaine HCl (Lidocaine 1% (10mg/Ml) For Iv Start) 0.1 ml INTRADERMA PER PROTOCOL PRN PRN Reason: IV Start Metoclopramide HCl (Metoclopramide 5 Mg/Ml 2 Ml Vial) 10 mg IVP Q6HR PRN PRN Reason: Nausea and Vomiting Last Admin: 02/14/21 07:47 Dose: 10 mg Documented by: Nicotine (Nicotine 21mg/24hr Patch) 1 patch TRANSDERM DAILY [facility] Last Admin: 02/15/21 07:53 Dose: 1 patch Documented by: Ondansetron HCl (Ondansetron 4 Mg/2 Ml Vial) 4 mg IVP Q8HR PRN PRN Reason: Nausea And Vomiting Pantoprazole Sodium (Pantoprazole 40 Mg/10 Ml Vial) 40 mg IVP DAILY [facility] Last Admin: 02/15/21 07:53 Dose: 40 mg Documented by: Simethicone (Simethicone 40 Mg/0.6 Ml Drops 2,000 Mg/30 Ml Bottle) 40 mg PO QID [facility] Last Admin: 02/15/21 16:11 Dose: Not Given Documented by: Past medical history to include: Hyperlipidemia, recurrent diverticulitis with microperforation, prostate cancer with surgery in 2006 Social history: Smoking a pack a day for last 50 years. Lives alone. I'll call occasionally. 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 Family history: Reviewed, noncontributory to presentation Physical examination: VITAL SIGNS: 98, 118, 16, 130/73, 99% on 2.5 L GENERAL: BMI 22.9, reclining in bed, awake. EYES: Pupils equal. Conjunctiva normal. HEENT: External appearance of nose and ears normal, oral cavity grossly normal. NECK: JVD not raised; masses not palpable. HEART: First and second heart sounds are normal; no edema. LUNGS: Respiratory rate normal; decreased breath sounds. ABDOMEN: Soft, distended, tender, liver spleen not palpable, no masses palpable. BLU drain. Abdominal wound VAC. Delatorre catheter PSYCH: Alert and oriented x3; mood and affect anxious INVESTIGATIONS, reviewed in the clinical context: February 15: WBC 18.8 hemoglobin 7.7 potassium 4.7 BUN 17 creatinine 1.26 White count 15.5 hemoglobin 11.2 platelets 333 potassium 4.4 creatinine 0.8 Albumin 2.7 Coronavirus [PCR]: Not detected Assessment and plan: -Sigmoid resection with low anterior resection for recurrent diverticulitis BLU drain -Acute hematuria from bladder wall trauma/perforation during surgery. Patient was taken back to have surgical repair. Late in the evening and cystogram confirmed further extravasation of urine. Taken back to the OR by Dr. Duran and Dr. Carmona. Previous sutures were removed. Repair of the bladder was done. Delatorre placed. -Acute postprocedure blood loss anemia, expected from surgery Hemoglobin dropped from 11.2 down to 7.7. Follow H&H -Sinus tachycardia from acute anemia and pain Telemetry -Acute kidney injury, prerenal/ATN Creatinine gone up from 0.71-1.26. IV fluids. Follow I's and O's -Hyperlipidemia Lipitor 80 mg daily -Chronic nicotine dependence, cigarette smoker Nicotine patch -Hypoalbuminemia, acute phase reactant -Normocytic anemia likely from chronic diverticulitis Follow H&H -Mild hyponatremia IV fluids. Follow labs IV Zosyn. Add IV Flagyl 5 mg every 6. Follow H&H. Repeat CBC CMP in the morning. Discussed with the patient. IV fluids Thank you Dr. Carmona
[2021-02-15] MEDS: FAMOTIDINE 20 MG/2 ML VIAL IV SCH (22:05)
[2021-02-16] MEDS: HYDROmorphone 1 MG/ML 1 ML SYRINGE IVP PRN ×3 (00:57→19:08)
[2021-02-16] MEDS: PIPERACILLIN-TAZOBACTAM 3.375 GM in SODIUM CHLORIDE 0.9% 100 ML IVPB SCH ×3 (01:14→15:25)
[2021-02-16] MEDS: HEPARIN SODIUM,PORCINE/PF 5,000 UNIT/0.5 ML SYRINGE SQ SCH (01:14)
[2021-02-16] MEDS: metroNIDAZOLE-NS PMX 500 MG in SALINE 1 100ML.BAG IVPB SCH ×4 (01:14→17:21)
[2021-02-16 06:25] LABS: ALT 11 U/L (4-49); AST 23 U/L (17-59); African American GFR (CKD) >90 (>60 ml/min/1.73 sqM); Albumin 2.2 g/dL (3.5-5.0); Albumin/Globulin Ratio 0.8; Alkaline Phosphatase 36 U/L (38-126); Anion Gap 7 mmol/L; Blood Urea Nitrogen 19 mg/dL (9-20); Calcium 7.7 mg/dL (8.4-10.2); Carbon Dioxide 21 mmol/L (22-30); Chloride 109 mmol/L (98-107); Globulin 2.6 g/dL; Glucose 122 mg/dL (74-99); Non-African American GFR(CKD) 89 (>60 ml/min/1.73 sqM); Potassium 4.1 mmol/L (3.5-5.1); Sodium 137 mmol/L (137-145); Total Bilirubin 0.2 mg/dL (0.2-1.3); Total Protein 4.8 g/dL (6.3-8.2)
[2021-02-16 06:27] LABS: Basophils % (A) 0 %; Eosinophils % (A) 0 %; Hypochromasia Slight; Lymphocytes # (A) 1.1 k/uL (1.0-4.8); Lymphocytes % (A) 8 %; MCH 30.2 pg (25.0-35.0); MCHC 31.3 g/dL (31.0-37.0); MCV 96.5 fL (80.0-100.0); Mean Platelet Volume 9.2; Monocytes # (A) 1.2 k/uL (0-1.0); Monocytes % (A) 9 %; Neutrophils # (A) 10.9 k/uL (1.3-7.7); Neutrophils % (A) 81 %; Platelet Count 259 k/uL (150-450); RBC 1.79 m/uL (4.30-5.90); RDW 13.8 % (11.5-15.5); WBC 13.5 k/uL (3.8-10.6)
[2021-02-16 06:34] LABS: HCT 17.3 % (39.0-53.0); HGB 5.4 gm/dL (13.0-17.5)
[2021-02-16] MEDS: SODIUM CHLORIDE 0.9% 1,000 ML IV SCH ×3 (07:31→15:31)
[2021-02-16] MEDS: METOCLOPRAMIDE 5 MG/ML 2 ML VIAL IVP PRN (09:09)
[2021-02-16] MEDS: FAMOTIDINE 20 MG/2 ML VIAL IV SCH ×2 (09:09→20:34)
[2021-02-16] MEDS: NICOTINE 21MG/24HR PATCH TRANSDERM SCH (09:10)
[2021-02-16] MEDS: ALVIMOPAN 12 MG CAPSULE PO SCH ×3 (09:10→20:44)
[2021-02-16] MEDS: SIMETHICONE 40 MG/0.6 ML DROPS 2,000 MG/30 ML BOTTLE PO SCH ×4 (09:11→22:09)
--- NOTE | 2021-02-16 10:10 | P.PN ---
Subjective Progress Note Date: 02/16/21 CHIEF COMPLAINT: Diverticulitis with bladder injury HISTORY OF PRESENT ILLNESS: The patient is a 70-year-old with history of severe diverticulitis who underwent low anterior resection with sigmoid colectomy on 02/13/2021. He was then taken back to the operating room 02/13/2021 for bladder injury. He was again taken back to the operating room third time in 02/14/2021 with urology for repair of bladder laceration. Hemoglobin from 02/14/2021 dropped from 11.2 to 7.7 yesterday. This morning, hemoglobin dropped to 5.4 with over 500 mL of sanguinous drainage in less than 12 hours from his Rosales- Childers drain. I was notified by nurse this morning for moderate filling of his BLU drain of blood. 2 units of blood has been ordered by me. Surgeons Dr. Danielle and Dr. Carmona notified of acute blood loss anemia. Per discussion with Dr. Danielle, patient is being taken back to the operating room today for acute blood loss anemia. ROS: Overnight events noted. NG tube present. No nausea or vomiting. No new chest pain. PHYSICAL EXAM: VITAL SIGNS: Reviewed CONSTITUTIONAL: Well developed and in no acute distress. EYES: Conjuctivae without sclera icterus. Extraocular movements grossly intact. Wears glasses. HEAD, EARS, NOSE, THROAT: Moist buccal mucosa. Head is atraumatic, normocephal ic. Hears conversational speech. No nasal drainage. NECK: No gross thyroidomegaly. RESPIRATORY: Non-labored respirations and equal bilateral excursions. CARDIOVASCULAR: Tachycardic ABDOMEN: Dressing intact. BLU sanguinous. MUSCULOSKELETAL: No gross deformity of the lower extremities noted. No clubbing. No cyanosis. SKIN: Good skin turgor. Well perfused. NEUROLOGIC: Cranial nerves II through XII grossly intact. No focal or lateralizing signs. PSYCH: Appropriate affect. Alert and oriented to person, place and time. CLINICAL LABS: Reviewed. White blood cell down from 18.8-13.5 with leukocytosis. Hemoglobin down from 11.2-5.4 from 02/14/2021 to 02/16/2021. Creatinine down from 1.26-0.85 ASSESSMENT: 1. Acute blood loss anemia status post bladder laceration repair and lower anterior resection PLAN: 1. Above discussed with Dr. Danielle who plans to return to the operating room for exploration. 2. Dr. Moralesania aware of acute blood loss anemia. I have notified primary aviva geon of takeback to the operating room today. 3. I have discontinued anticoagulants including heparin 4. May FFP for reversal of heparin Objective - Vital Signs Vital signs: Vital Signs Temp 98.3 F 02/16/21 07:54 Pulse 103 H 02/16/21 07:54 Resp 18 02/16/21 07:54 BP 127/67 02/16/21 07:54 Pulse Ox 93 L 02/16/21 07:54 Intake & Output 02/15/21 02/16/21 02/16/21 18:59 06:59 18:59 Intake Total 2049 76215 Output Total 1210 1340 730 Balance 840 -1340 65025 Intake: Intake, IV Titration 2049 02242 Amount Piperacillin-Tazobactam 3 200 100 .375 gm In Sodium Chloride 0.9% 100 ml @ 25 mls/hr IVPB Q8HR [facility] Rx# :[id number] Sodium Chloride 0.9% 1, 750 72311 000 ml @ 125 mls/hr IV . Q8H [facility] Rx#:[id number] Sodium Chloride 0.9% 1, 1000 000 ml @ 999 mls/hr IV . Q1H1M [facility] Rx#:[id number] metroNIDAZOLE-NS PMX 500 100 500 mg In Saline 1 100ml.bag @ 100 mls/hr IVPB Q6HR [facility] Rx#:[id number] Output: Gastric Drainage 400 450 Drainage 310 540 280 Abdomen 310 540 280 Urine 500 800 Other: Voiding Method Indwelling Catheter Indwelling Catheter - Labs CBC & Chem 7: 02/16/21 05:54 02/16/21 05:54 Labs: Abnormal Lab Results - Last 24 Hours (Table) 02/16/21 02/16/21 02/16/21 Range/Units 05:54 05:54 05:54 WBC 13.5 H (3.8-10.6) k/uL RBC 1.79 L (4.30-5.90) m/uL Hgb 5.4 L* D (13.0-17.5) gm/dL Hct 17.3 L* (39.0-53.0) % Neutrophils # 10.9 H (1.3-7.7) k/uL Monocytes # 1.2 H (0-1.0) k/uL Chloride 109 H (98-107) mmol/L Carbon Dioxide 21 L (22-30) mmol/L Glucose 122 H (74-99) mg/dL Calcium 7.7 L (8.4-10.2) mg/dL Alkaline Phosphatase 36 L (38-126) U/L Total Protein 4.8 L (6.3-8.2) g/dL Albumin 2.2 L (3.5-5.0) g/dL Procalcitonin 0.63 H (0.02-0.09) ng/mL Assessment and Plan (1) Acute post-hemorrhagic anemia Current Visit: Yes Status: Acute Code(s): D62 - ACUTE POSTHEMORRHAGIC ANEMIA SNOMED Code(s): 693950000 (2) Bladder laceration as postoperative complication Current Visit: Yes Status: Acute Code(s): N99.89 - OTH POSTPROCEDURAL C OMPLICATIONS AND DISORDERS OF SYS SNOMED Code(s): 506004016 (3) Diverticulitis Current Visit: Yes Status: Acute Code(s): K57.92 - DVTRCLI OF INTEST, PART UNSP, W/O PERF OR ABSCESS W/O BLEED SNOMED Code(s): 012674567
[2021-02-16] MEDS ORDERED: GLYCOPYRROLATE 0.2 MG/ML 2 ML VIAL ONE (11:09)
[2021-02-16] MEDS ORDERED: NEOSTIGMINE 1 MG/ML 10 ML VIAL ONE (11:09)
[2021-02-16] MEDS ORDERED: DEXAMETHASONE SOD PHOSPHATE 10 MG/ML 1 ML VIAL ONE (11:09)
[2021-02-16] MEDS ORDERED: ROCURONIUM 10 MG/ML (5 ML VIAL) IV ONE (11:09)
[2021-02-16] MEDS ORDERED: LIDOCAINE 1% INJ 10MG/ML (20 ML MDV) ONE (11:09)
[2021-02-16] MEDS ORDERED: ONDANSETRON 4 MG/2 ML VIAL ONE (11:09)
[2021-02-16] MEDS ORDERED: IV FLUID CONTINUATION 1,000 ML IV ONE (11:09)
[2021-02-16] MEDS ORDERED: SUCCINYLCHOLINE CHLORIDE 100 MG/5 ML SYR IV ONE (11:09)
[2021-02-16] MEDS ORDERED: PROPOFOL 10 MG/ML 20 ML VIAL IV ONE (11:09)
[2021-02-16] MEDS ORDERED: KETOROLAC 15 MG/ML 1 ML VIAL ONE (11:09)
[2021-02-16] MEDS ORDERED: fentaNYL (PF) 50 MCG/ML 2 ML AMP ONE (11:09)
[2021-02-16] MEDS ORDERED: HYDROmorphone (PF) 1 MG/ML ONE (11:09)
--- NOTE | 2021-02-16 11:19 | P.PN ---
Progress Note - Text Progress Note Date: 02/16/21 BLU drainage has increased significantly overnight. The drainage is sanguinous in appearance, and the hemoglobin level this morning is 5.4. He is being transfused 2 units of blood. The BLU drain is being emptied every 1-2 hours. In view of the unexplained blood loss, I intend to perform an exploratory laparotomy with control of bleeder. The Delatorre catheter is draining clear yellow urine, and I have no reason to suspect any issue with the bladder closure.
[2021-02-16] MEDS ORDERED: LACTATED RINGERS 1,000 ML IV ONE (12:26)
--- NOTE | 2021-02-16 13:46 | P.OP ---
Date of Procedure: 02/16/21 Preoperative Diagnosis: Intra-abdominal bleeding Postoperative Diagnosis: Same Procedure(s) Performed: Exploratory laparotomy, evacuation of clot, control of intra-abdominal bleeder Anesthesia: JOSH Surgeon: Collin Danielle Estimated Blood Loss (ml): 50 IV fluids (ml): 900 Pathology: none sent Condition: stable Disposition: PACU Indications for Procedure: The patient is a 70-year-old white male who underwent a robotic-assisted laparoscopic prostatectomy (RALP) in 2006 in [place], [place]. He has not received any adjuvant therapy. He states that his PSA levels are undetectable. He denies urinary incontinence. He has been treated this year for multiple episodes of diverticulitis. He underwent CT guided drainage of a diverticular abscess in November. He underwent a low anterior resection on 02/13/2021. Postoperatively, blood was noted in the Delatorre catheter and bladder injury was suspected by Dr. Carmona, who took the patient back to the operating room and repaired a bladder laceration. Subsequently, there was significant drainage from the BLU drain. A cystogram was performed on 02/14/2021, showing extravasation of contrast, and he underwent exploratory laparotomy with repair of bladder laceration. Overnight, BLU drainage increased and was sanguinous in nature. His hemoglobin level dropped to 5.4. He was transfused and will undergo exploratory laparotomy. Operative Findings: Approximately 500 mL of clot was removed from the abdomen. Bleeding from bladder dome adjacent to peritoneal edge was noted. Description of Procedure: The patient was taken to the operating room and placed in the supine position. The surgical mendel were removed. The abdomen was prepped and draped sterilely. The entire length of the wound was opened by removing the fascial sutures. Upon entering the abdomen, a large amount of clot was removed. The abdomen was then meticulously examined. The bladder repair appeared intact. The only area of bleeding noted was at the bladder dome adjacent to the peritoneal edge. This was not arterial bleeding, rather oozing. No other active bleeding was seen anywhere also within the abdomen. The area of bleeding was controlled with electrocautery. Tisseel was then placed over the area of oozing, and a 3-0 Vicryl suture was then placed in a running fashion, approximating the peritoneal edge to the bladder dome and thus obliterating the sulcus from which the oozing occurred. Hemostasis within the abdomen was excellent at this time. Next, the omentum was examined. A single omental vessel was ligated and divided on the right side, allowing the omentum to easily reach down into the pelvis. The omentum was then secured over the anterior bladder and bladder dome using 3-0 Vicryl sutures in simple interrupted fashion. The drain was placed above the bladder dome. The fascia was closed using looped #1 PDS suture in a running fashion. The skin was closed using mendel. A sterile gauze dressing was applied over the incision. A prevena wound vac system was placed on the skin. The Delatorre catheter drained clear urine throughout the procedure. All sponge and needle counts were correct. The patient tolerated the procedure well was taken to the recovery room in stable condition.
[2021-02-16] MEDS: HYDROmorphone 0.5 MG/0.5 ML SYRINGE IVP ONE ×2 (13:47→13:52)
[2021-02-16 15:47] LABS: Basophils # (A) 0.1 k/uL (0-0.2); Basophils % (A) 0 %; Eosinophils % (A) 0 %; HCT 26.8 % (39.0-53.0); Lymphocytes # (A) 0.6 k/uL (1.0-4.8); Lymphocytes % (A) 4 %; MCH 30.5 pg (25.0-35.0); MCHC 32.8 g/dL (31.0-37.0); Mean Platelet Volume 8.8; Monocytes # (A) 0.9 k/uL (0-1.0); Monocytes % (A) 6 %; Neutrophils # (A) 13.7 k/uL (1.3-7.7); Neutrophils % (A) 88 %; Platelet Count 264 k/uL (150-450); RBC 2.88 m/uL (4.30-5.90); RDW 14.8 % (11.5-15.5); WBC 15.5 k/uL (3.8-10.6)
[2021-02-16 15:50] LABS: HGB 8.8 gm/dL (13.0-17.5)
[2021-02-17] MEDS: metroNIDAZOLE-NS PMX 500 MG in SALINE 1 100ML.BAG IVPB SCH ×4 (00:15→17:33)
[2021-02-17] MEDS: PIPERACILLIN-TAZOBACTAM 3.375 GM in SODIUM CHLORIDE 0.9% 100 ML IVPB SCH ×3 (00:15→16:00)
[2021-02-17] MEDS: SODIUM CHLORIDE 0.9% 1,000 ML IV SCH ×4 (00:17→22:22)
[2021-02-17] MEDS: HYDROmorphone 1 MG/ML 1 ML SYRINGE IVP PRN ×4 (06:26→18:21)
[2021-02-17 08:03] LABS: ALT 14 U/L (4-49); AST 23 U/L (17-59); African American GFR (CKD) >90 (>60 ml/min/1.73 sqM); Albumin 2.1 g/dL (3.5-5.0); Albumin/Globulin Ratio 0.8; Alkaline Phosphatase 35 U/L (38-126); Anion Gap 7 mmol/L; Blood Urea Nitrogen 17 mg/dL (9-20); Calcium 7.5 mg/dL (8.4-10.2); Carbon Dioxide 21 mmol/L (22-30); Chloride 112 mmol/L (98-107); Globulin 2.6 g/dL; Glucose 99 mg/dL (74-99); Non-African American GFR(CKD) >90 (>60 ml/min/1.73 sqM); Potassium 3.7 mmol/L (3.5-5.1); Sodium 140 mmol/L (137-145); Total Bilirubin 0.3 mg/dL (0.2-1.3); Total Protein 4.7 g/dL (6.3-8.2)
[2021-02-17] MEDS: FAMOTIDINE 20 MG/2 ML VIAL IV SCH ×2 (08:30→22:19)
[2021-02-17] MEDS: ALVIMOPAN 12 MG CAPSULE PO SCH ×2 (08:30→22:19)
[2021-02-17] MEDS: NICOTINE 21MG/24HR PATCH TRANSDERM SCH (10:55)
[2021-02-17 11:09] LABS: Basophils # (A) 0.02 X 10*3/uL (0.00-0.10); Basophils % (A) 0.1 %; Eosinophils # (A) 0.01 X 10*3/uL (0.04-0.35); Eosinophils % (A) 0.1 %; HCT 24.1 % (39.6-50.0); HGB 7.7 g/dL (13.0-17.0); Lymphocytes # (A) 1.23 X 10*3/uL (0.90-5.00); Lymphocytes % (A) 8.1 %; MCH 30.4 pg (27.0-32.0); MCV 95.3 fL (80.0-97.0); Mean Platelet Volume 11.2 fL (9.5-12.2); Monocytes # (A) 1.92 X 10*3/uL (0.20-1.00); Monocytes % (A) 12.6 %; Neutrophils % (A) 75.6 %; Platelet Count 240 X 10*3/uL (140-440); RBC 2.53 X 10*6/uL (4.40-5.60); RDW 15.6 % (11.5-14.5); WBC 15.22 X 10*3/uL (4.50-10.00)
--- NOTE | 2021-02-17 11:58 | P.PN ---
Progress Note - Text Progress Note Date: 02/16/21 - Chief Complaint Abdominal pain This is a pleasant 70-year-old patient who follows with Dr. Ramirez. Chronic stable medical conditions include hyperlipidemia, history of prostate cancer in 2006 that was treated with surgery. Patient's had recurrent bouts of diverticulitis. He had microperforation with abscesses in the past. Patient with it for a scheduled sigmoid colon resection. Yesterday evening he underwent sigmoid resection with low anterior resection. In the recovery room patient was noted to have blood in the Delatorre catheter. It persisted. Patient was taken back to the operating room. They appeared to be a 3 cm opening of the bladder. That was repaired. 100 mL of fluid was removed from the abdominal cavity. BLU drain was placed. On top of the repaired. This morning patient having some abdominal pain. No nausea vomiting. Has been started on a clear liquid diet. Patient denies any chest pain or shortness of breath. February 15: Yesterday evening patient is having copious amount of output to the BLU drain. Cystogram confirmed extravasation of urine. Patient was taken back to the operating room by Dr. Carmona and Dr. Duran. Previous sutures from the bladder wall was removed and extravasation site was repaired. Patient has a Delatorre catheter. Slight bloody drainage. Has a BLU drain. Abdominal wound VAC. Some abdominal distention. NG tube to suction. Some old pain. IV Flagyl being added February 16: Earlier today patient's hemoglobin dropped to 5.4. Patient is having significantly bloody drainage out of the BLU drain. Patient was taken back to the OR by Dr. Duran. Large blood cultures removed and wheezing was noted on the bladder dome. This was cauterized. BLU drain was replaced. Provena wound VAC was replaced. NG tube in place. Abdominal pain. Patient's brother and sister are visiting. Patient earlier was transfused blood. Review of systems: Was done for constitutional, cardiovascular, GI, pulmonary. relevant finding as above Medications noted in the e- chart Past medical history to include: Hyperlipidemia, recurrent diverticulitis with microperforation, prostate cancer with surgery in 2006 Social history: Smoking a pack a day for last 50 years. Lives alone. I'll call occasionally. 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 Family history: Reviewed, noncontributory to presentation Physical examination: VITAL SIGNS: 97.5, 96, 133/64, 94% on 3 L GENERAL: Laying in bed, awake. EYES: Pupils equal. Conjunctiva normal. HEENT: External appearance of nose and ears normal, NG tube NECK: JVD not raised; masses not palpable. HEART: First and second heart sounds are normal; no edema. LUNGS: Respiratory rate normal; decreased breath sounds. ABDOMEN: Soft, distended, tender, liver spleen not palpable, no masses palpable. BLU drain. Provena wound VAC. Delatorre catheter PSYCH: Alert and oriented x3; mood and affect anxious INVESTIGATIONS, reviewed in the clinical context: February 16: White count 13.5 hemoglobin 5.4 platelets 259 potassium 4.1 creatinine 0.85 February 15: WBC 18.8 hemoglobin 7.7 potassium 4.7 BUN 17 creatinine 1.26 White count 15.5 hemoglobin 11.2 platelets 333 potassium 4.4 creatinine 0.8 Albumin 2.7 Coronavirus [PCR]: Not detected Assessment and plan: -Sigmoid resection with low anterior resection for recurrent diverticulitis BLU drain -Acute hematuria from bladder wall trauma/perforation during surgery. taken back to have surgical repair. Late in the evening and cystogram confirmed further extravasation of urine. Taken back to the OR by Dr. Duran and Dr. Carmona. Previous sutures were removed. Repair of the bladder was done. Delatorre placed. Subsequent day increased bloody output to the BLU drain. Causing vessel noted on bladder dome. Cauterized. Wound VAC replaced. -Acute severe blood loss anemia, bleeding from the bladder dome-new today Hemoglobin dropped from 5.4. 2 units of blood transfused -Sinus tachycardia from acute anemia and pain Telemetry -Acute kidney injury, prerenal/ATN: Better Creatinine gone up from 0.71-1.26. IV fluids. Follow I's and O's -Hyperlipidemia Lipitor 80 mg daily -Chronic nicotine dependence, cigarette smoker Nicotine patch -Hypoalbuminemia, acute phase reactant -Normocytic anemia likely from chronic diverticulitis Follow H&H -Mild hyponatremia IV fluids. Follow labs IV Zosyn. IV Flagyl 5 mg every 6. Follow H&H. IV fluids. Care discussed with the patient. We'll follow the patient with other providers
[2021-02-17] MEDS: SIMETHICONE 40 MG/0.6 ML DROPS 2,000 MG/30 ML BOTTLE PO SCH ×3 (12:05→22:20)
--- NOTE | 2021-02-17 12:22 | P.PN ---
Subjective Progress Note Date: 02/17/21 CHIEF COMPLAINT: Diverticulitis with bladder injury HISTORY OF PRESENT ILLNESS: The patient is a 70-year-old with history of severe diverticulitis who underwent low anterior resection with sigmoid colectomy on 02/13/2021. He was then taken back to the operating room 02/13/2021 for bladder injury. He was again taken back to the operating room third time in 02/14/2021 with urology for repair of bladder laceration. Hemoglobin from 02/14/2021 dropped from 11.2 to 7.7 yesterday for hemoglobin dropped to 5.4. He received 2 units of pRBCS. He was taken back to the OR by Dr. Danielle for evacuation of clots and control of bleeding along the bladder dome. He feels well today and playing with his cell phone. No new complaints. He has a NG tube. He is on ice chips. ROS: No nausea or vomiting. No new chest pain. PHYSICAL EXAM: VITAL SIGNS: Reviewed CONSTITUTIONAL: Well developed and in no acute distress. EYES: Conjuctivae without sclera icterus. Extraocular movements grossly intact. Wears glasses. HEAD, EARS, NOSE, THROAT: Moist buccal mucosa. Head is atraumatic, normocephalic. Hears conversational speech. No nasal drainage. NECK: No gross thyroidomegaly. RESPIRATORY: Non-labored respirations and equal bilateral excursions. CARDIOVASCULAR: Tachycardic ABDOMEN: Dressing intact. BLU serosanguinous with 60 mL/24hrs with nurse at bedside. MUSCULOSKELETAL: No gross deformity of the lower extremities noted. No clubbing. No cyanosis. SKIN: Good skin turgor. Well perfused. NEUROLOGIC: Cranial nerves II through XII grossly intact. No focal or lateralizing signs. PSYCH: Appropriate affect. Alert and oriented to person, place and time. CLINICAL LABS: Reviewed. White blood cell down from 18.8-13.5, up 15.5 with leukocytosis. Hemoglobin down from 11.2-5.4 now up to 7.7 from 8.8 yesterday. ASSESSMENT: 1. Acute blood loss anemia status post bladder laceration repair and lower anterior resection 2. Status post take back for hemorrhagic bleed, bladder PLAN: 1. Ice chips and popsicles. 2. May benefit from iron with acute blood loss anemia. 3. Iron infusion ordered. Objective - Vital Signs Vital signs: Vital Signs Temp 97.9 F 02/17/21 05:48 Pulse 68 02/17/21 05:48 Resp 16 02/17/21 08:00 BP 129/65 02/17/21 05:48 Pulse Ox 96 02/17/21 05:48 Intake & Output 02/16/21 02/17/21 02/17/21 18:59 06:59 18:59 Intake Total 48585 Output Total 2440 795 100 Balance 64063 -795 -100 Intake: IV 950 Intake, IV Titration 64727 Amount Piperacillin-Tazobactam 3 100 .375 gm In Sodium Chloride 0.9% 100 ml @ 25 mls/hr IVPB Q8HR [facility] Rx# :[id number] Sodium Chloride 0.9% 1, 64649 000 ml @ 125 mls/hr IV . Q8H [facility] Rx#:[id number] metroNIDAZOLE-NS PMX 500 500 mg In Saline 1 100ml.bag @ 100 mls/hr IVPB Q6HR [facility] Rx#:[id number] Oral 0 Blood Product 620 Rc As-1 Unit 310 [id number] Rc As-1 Unit 310 [id number] Output: Gastric Drainage 750 Drainage 340 195 100 Abdomen 340 195 100 Urine 1300 600 Uretheral (Delatorre) 850 Estimated Blood Loss 50 Other: Voiding Method Indwelling Catheter Indwelling Catheter Indwelling Catheter # Bowel Movements 0 - Labs CBC & Chem 7: 02/17/21 07:34 02/17/21 07:34 Labs: Abnormal Lab Results - Last 24 Hours (Table) 02/16/21 02/16/21 02/17/21 Range/Units 05:54 15:28 07:34 WBC 15.5 H 15.22 H (3.8-10.6) k/uL RBC 2.88 L 2.53 L (4.30-5.90) m/uL Hgb 8.8 L D 7.7 L (13.0-17.5) gm/dL Hct 26.8 L 24.1 L (39.0-53.0) % RDW 15.6 H (11.5-14.5) % Absolute Nucleated RBC 0.05 H (0.00-0.00) X 10*3/uL Immature Gran # 0.54 H (0.00-0.04) X 10*3/uL Neutrophils # 13.7 H 11.50 H (1.3-7.7) k/uL Lymphocytes # 0.6 L (1.0-4.8) k/uL Monocytes # 1.92 H (0.20-1.00) X 10*3/uL Eosinophils # 0.01 L (0.04-0.35) X 10*3/uL NRBC/100 WBC Diff 0.3 H (0.0-0.0) /100 WBCS Chloride (98-107) mmol/L Carbon Dioxide (22-30) mmol/L Calcium (8.4-10.2) mg/dL Alkaline Phosphatase (38-126) U/L Total Protein (6.3-8.2) g/dL Albumin (3.5-5.0) g/dL Crossmatch See Detail 02/17/21 Range/Units 07:34 WBC (3.8-10.6) k/uL RBC (4.30-5.90) m/uL Hgb (13.0-17.5) gm/dL Hct (39.0-53.0) % RDW (11.5-14.5) % Absolute Nucleated RBC (0.00-0.00) X 10*3/uL Immature Gran # (0.00-0.04) X 10*3/uL Neutrophils # (1.3-7.7) k/uL Lymphocytes # (1.0-4.8) k/uL Monocytes # (0.20-1.00) X 10*3/uL Eosinophils # (0.04-0.35) X 10*3/uL NRBC/100 WBC Diff (0.0-0.0) /100 WBCS Chloride 112 H (98-107) mmol/L Carbon Dioxide 21 L (22-30) mmol/L Calcium 7.5 L (8.4-10.2) mg/dL Alkaline Phosphatase 35 L (38-126) U/L Total Protein 4.7 L (6.3-8.2) g/dL Albumin 2.1 L (3.5-5.0) g/dL Crossmatch Assessment and Plan (1) Acute post-hemorrhagic anemia Current Visit: Yes Status: Acute Code(s): D62 - ACUTE POSTHEMORRHAGIC ANEMIA SNOMED Code(s): 667564360 (2) Bladder laceration as postoperative complication Current Visit: Yes Status: Acute Code(s): N99.89 - OTH POSTPROCEDURAL COMPLICATIONS AND DISORDERS OF SYS SNOMED Code(s): 679633165 (3) Diverticulitis Current Visit: Yes Status: Acute Code(s): K57.92 - DVTRCLI OF INTEST, PART UNSP, W/O PERF OR ABSCESS W/O BLEED SNOMED Code(s): 094180144
--- NOTE | 2021-02-17 15:11 | P.PN ---
Progress Note - Text Progress Note Date: 02/17/21 - Chief Complaint Abdominal pain This is a pleasant 70-year-old patient who follows with Dr. Ramirez. Chronic stable medical conditions include hyperlipidemia, history of prostate cancer in 2007 that was treated with surgery. Patient's had recurrent bouts of diverticulitis. He had microperforation with abscesses in the past. Patient with it for a scheduled sigmoid colon resection. Yesterday evening he underwent sigmoid resection with low anterior resection. In the recovery room patient was noted to have blood in the Delatorre catheter. It persisted. Patient was taken back to the operating room. They appeared to be a 3 cm opening of the bladder. That was repaired. 100 mL of fluid was removed from the abdominal cavity. BLU drain was placed. On top of the repaired. This morning patient having some abdominal pain. No nausea vomiting. Has been started on a clear liquid diet. Patient denies any chest pain or shortness of breath. February 15: Yesterday evening patient is having copious amount of output to the BLU drain. Cystogram confirmed extravasation of urine. Patient was taken back to the operating room by Dr. Carmona and Dr. Duran. Previous sutures from the bladder wall was removed and extravasation site was repaired. Patient has a Delatorre catheter. Slight bloody drainage. Has a BLU drain. Abdominal wound VAC. Some abdominal distention. NG tube to suction. Some old pain. IV Flagyl being added February 16: Earlier today patient's hemoglobin dropped to 5.4. Patient is having significantly bloody drainage out of the BLU drain. Patient was taken back to the OR by Dr. Duran. Large blood cultures removed and wheezing was noted on the bladder dome. This was cauterized. BLU drain was replaced. Provena wound VAC was replaced. NG tube in place. Abdominal pain. Patient's brother and sister are visiting. Patient earlier was transfused blood. February 17: Sitting up in a chair for about 2 hours. Abdominal pain present. Urine is shuffle board operator in color. Patient remains nothing by mouth. BLU drain output light serosanguineous in color. Review of systems: Was done for constitutional, cardiovascular, GI, pulmonary. relevant finding as above Past medical history to iActive Medications Alvimopan (Alvimopan 12 Mg Capsule) 12 mg PO BID RAFA Stop: 02/20/21 09:01 Last Admin: 02/17/21 08:30 Dose: 12 mg Documented by: Benzocaine/Menthol (Benzocaine/Menthol Lozeng 1 Each Lozenge) 1 each MUCOUS MEM Q1HR PRN PRN Reason: Sore Throat Famotidine (Famotidine 20 Mg/2 Ml Vial) 20 mg IV Q12HR REPLACED BY [facility] Last Admin: 02/17/21 08:30 Dose: 20 mg Documented by: Hydromorphone HCl (Hydromorphone 1 Mg/Ml 1 Ml Syringe) 1 mg IVP Q2HR PRN PRN Reason: Severe Pain Last Admin: 02/17/21 12:03 Dose: 1 mg Documented by: Piperacillin Sod/Tazobactam (Sod 3.375 gm/ Sodium Chloride) 100 mls @ 25 mls/hr IVPB Q8HR REPLACED BY [facility] Last Admin: 02/17/21 08:30 Dose: 25 mls/hr Documented by: Sodium Chloride (Saline 0.9%) 1,000 mls @ 125 mls/hr IV .Q8H REPLACED BY [facility] Last Admin: 02/17/21 12:05 Dose: 125 mls/hr Documented by: Metronidazole 500 mg/ IV (Solution) 100 mls @ 100 mls/hr IVPB Q6HR REPLACED BY [facility] Last Admin: 02/17/21 12:04 Dose: 100 mls/hr Documented by: Ferric Sodium Gluconate 125 mg (/ Sodium Chloride) 110 mls @ 100 mls/hr IVPB DAILY REPLACED BY [facility] Stop: 02/19/21 10:05 Lidocaine HCl (Lidocaine 1% (10mg/Ml) For Iv Start) 0.1 ml INTRADERMA PER PROTOCOL PRN PRN Reason: IV Start Metoclopramide HCl (Metoclopramide 5 Mg/Ml 2 Ml Vial) 10 mg IVP Q6HR PRN PRN Reason: Nausea and Vomiting Last Admin: 02/16/21 09:09 Dose: 10 mg Documented by: Nicotine (Nicotine 21mg/24hr Patch) 1 patch TRANSDERM DAILY REPLACED BY [facility] Last Admin: 02/17/21 10:55 Dose: Not Given Documented by: Ondansetron HCl (Ondansetron 4 Mg/2 Ml Vial) 4 mg IVP Q8HR PRN PRN Reason: Nausea And Vomiting Simethicone (Simethicone 40 Mg/0.6 Ml Drops 2,000 Mg/30 Ml Bottle) 40 mg PO QID REPLACED BY [facility] Last Admin: 02/17/21 12:05 Dose: 40 mg Documented by: nclude: Hyperlipidemia, recurrent diverticulitis with microperforation, prostate cancer with surgery in 2006 Social history: Smoking a pack a day for last 50 years. Lives alone. I'll call occasionally. 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 Family history: Reviewed, noncontributory to presentation Physical examination: VITAL SIGNS: 97.9, 68, 16, 129/65, 96% room air GENERAL: Laying in bed, awake. EYES: Pupils equal. Conjunctiva normal. HEENT: External appearance of nose and ears normal, NG tube NECK: JVD not raised; masses not palpable. HEART: First and second heart sounds are normal; no edema. LUNGS: Respiratory rate normal; decreased breath sounds. ABDOMEN: Soft, distended, tender, liver spleen not palpable, no masses palpable. BLU drain. Provena wound VAC. Delatorre catheter PSYCH: Alert and oriented x3; mood and affect anxious INVESTIGATIONS, reviewed in the clinical context: February 17: W BC 15.2 hemoglobin 7.7 potassium 3.7 creatinine 0.81 February 16: White count 13.5 hemoglobin 5.4 platelets 259 potassium 4.1 creatinine 0.85 February 15: WBC 18.8 hemoglobin 7.7 potassium 4.7 BUN 17 creatinine 1.26 White count 15.5 hemoglobin 11.2 platelets 333 potassium 4.4 creatinine 0.8 Albumin 2.7 Coronavirus [PCR]: Not detected Assessment and plan: -Sigmoid resection with low anterior resection for recurrent diverticulitis BLU drain -Acute hematuria from bladder wall trauma/perforation during surgery. taken back to have surgical repair. Late in the evening and cystogram confirmed further extravasation of urine. Taken back to the OR by Dr. Duran and Dr. Carmona. Previous sutures were removed. Repair of the bladder was done. Delatorre placed. Subsequent day increased bloody output to the BLU drain. Causing vessel noted on bladder dome. Cauterized. Wound VAC replaced. -Acute severe blood loss anemia, bleeding from the bladder improved Hemoglobin dropped from 5.4. 2 units of blood transfused -Sinus tachycardia from acute anemia and pain Telemetry -Acute kidney injury, prerenal/ATN: Better Creatinine gone up from 0.71-1.26. IV fluids. Follow I's and O's -Hyperlipidemia Lipitor 80 mg daily -Chronic nicotine dependence, cigarette smoker Nicotine patch -Hypoalbuminemia, acute phase reactant -Normocytic anemia likely from chronic diverticulitis Follow H&H -Mild hyponatremia: Corrected IV fluids. Follow labs IV Zosyn. IV Flagyl 500 mg every 6. Follow H&H. IV fluids. Care discussed with the patient. Up in chair as tolerated. Nothing by mouth. We'll follow the patient with other providers
--- NOTE | 2021-02-17 15:46 | P.PN ---
Subjective Progress Note Date: 02/17/21 Principal diagnosis: POD #3, s/p repair of bladder laceration The patient is feeling much better today. He has an NG tube in place. He is not passing flatus. He was up in a chair this morning. Objective - Vital Signs Vital signs: Vital Signs Temp 97.9 F 02/17/21 05:48 Pulse 68 02/17/21 05:48 Resp 16 02/17/21 08:00 BP 129/65 02/17/21 05:48 Pulse Ox 96 02/17/21 05:48 Intake & Output 02/16/21 02/17/21 02/17/21 18:59 06:59 18:59 Intake Total 59527 Output Total 2440 795 880 Balance 58031 -901 -396 Intake: IV 950 Intake, IV Titration 05175 Amount Piperacillin-Tazobactam 3 100 .375 gm In Sodium Chloride 0.9% 100 ml @ 25 mls/hr IVPB Q8HR [facility] Rx# :[id number] Sodium Chloride 0.9% 1, 72287 000 ml @ 125 mls/hr IV . Q8H RAFA Rx#:[id number] metroNIDAZOLE-NS PMX 500 500 mg In Saline 1 100ml.bag @ 100 mls/hr IVPB Q6HR [facility]FA Rx#:[id number] Oral 0 Blood Product 620 Rc As-1 Unit 310 [id number] Rc As-1 Unit 310 [id number] Output: Gastric Drainage 750 100 Drainage 340 195 180 Abdomen 340 195 180 Urine 1300 600 600 Uretheral (Delatorre) 850 600 Estimated Blood Loss 50 Other: Voiding Method Indwelling Catheter Indwelling Catheter Indwelling Catheter # Bowel Movements 0 - Constitutional General appearance: Present: cooperative - Gastrointestinal Gastrointestinal Comment(s): Soft, non-distended. Dressing dry and intact. BLU output reduced. Delatorre catheter is draining clear urine. - Psychiatric Psychiatric: Present: A&O x's 3 - Labs CBC & Chem 7: 02/17/21 07:34 02/17/21 07:34 Labs: Abnormal Lab Results - Last 24 Hours (Table) 02/16/21 02/17/21 02/17/21 Range/Units 15:28 07:34 07:34 WBC 15.5 H 15.22 H (3.8-10.6) k/uL RBC 2.88 L 2.53 L (4.30-5.90) m/uL Hgb 8.8 L D 7.7 L (13.0-17.5) gm/dL Hct 26.8 L 24.1 L (39.0-53.0) % RDW 15.6 H (11.5-14.5) % Absolute Nucleated RBC 0.05 H (0.00-0.00) X 10*3/uL Immature Gran # 0.54 H (0.00-0.04) X 10*3/uL Neutrophils # 13.7 H 11.50 H (1.3-7.7) k/uL Lymphocytes # 0.6 L (1.0-4.8) k/uL Monocytes # 1.92 H (0.20-1.00) X 10*3/uL Eosinophils # 0.01 L (0.04-0.35) X 10*3/uL NRBC/100 WBC Diff 0.3 H (0.0-0.0) /100 WBCS Chloride 112 H (98-107) mmol/L Carbon Dioxide 21 L (22-30) mmol/L Calcium 7.5 L (8.4-10.2) mg/dL Alkaline Phosphatase 35 L (38-126) U/L Total Protein 4.7 L (6.3-8.2) g/dL Albumin 2.1 L (3.5-5.0) g/dL Assessment and Plan (1) Bladder laceration as postoperative complication Current Visit: Yes Status: Acute Code(s): N99.89 - OTH POSTPROCEDURAL COMPLICATIONS AND DISORDERS OF SYS SNOMED Code(s): 325256594 Plan: Continue Delatorre catheter drainage. The patient was advised that the catheter will remain in place until 03/04/21, and that a cystogram will be obtained prior to catheter removal. Once his ileus resolves, the NG tube will be removed and diet initiated.
[2021-02-17] MEDS: SODIUM FERRIC GLUCONAT-SUCROSE 125 MG in SODIUM CHLORIDE 0.9% 100 ML IVPB SCH (17:33)
[2021-02-18] MEDS: metroNIDAZOLE-NS PMX 500 MG in SALINE 1 100ML.BAG IVPB SCH ×4 (00:26→17:19)
[2021-02-18] MEDS: PIPERACILLIN-TAZOBACTAM 3.375 GM in SODIUM CHLORIDE 0.9% 100 ML IVPB SCH ×3 (00:27→17:19)
[2021-02-18] MEDS: NICOTINE 21MG/24HR PATCH TRANSDERM SCH (07:56)
[2021-02-18] MEDS: FAMOTIDINE 20 MG/2 ML VIAL IV SCH ×2 (07:56→20:32)
[2021-02-18] MEDS: HYDROmorphone 1 MG/ML 1 ML SYRINGE IVP PRN ×3 (07:57→20:32)
[2021-02-18] MEDS: ALVIMOPAN 12 MG CAPSULE PO SCH ×2 (07:57→20:32)
[2021-02-18] MEDS: SIMETHICONE 40 MG/0.6 ML DROPS 2,000 MG/30 ML BOTTLE PO SCH ×4 (07:58→21:49)
[2021-02-18] MEDS: SODIUM FERRIC GLUCONAT-SUCROSE 125 MG in SODIUM CHLORIDE 0.9% 100 ML IVPB SCH (08:04)
[2021-02-18 11:43] LABS: Anisocytosis Slight; Basophils # (A) 0.1 k/uL (0-0.2); Basophils % (A) 0 %; Eosinophils # (A) 0.2 k/uL (0-0.7); Eosinophils % (A) 2 %; HCT 25.5 % (39.0-53.0); HGB 8.4 gm/dL (13.0-17.5); Lymphocytes # (A) 1.2 k/uL (1.0-4.8); Lymphocytes % (A) 10 %; MCH 31.1 pg (25.0-35.0); Mean Platelet Volume 9.6; Monocytes # (A) 0.9 k/uL (0-1.0); Monocytes % (A) 7 %; Neutrophils # (A) 9.3 k/uL (1.3-7.7); Neutrophils % (A) 78 %; Platelet Count 292 k/uL (150-450); RBC 2.72 m/uL (4.30-5.90); RDW 16.2 % (11.5-15.5); WBC 11.9 k/uL (3.8-10.6)
[2021-02-18] MEDS: SODIUM CHLORIDE 0.9% 1,000 ML IV SCH ×2 (12:18→18:29)
[2021-02-18 12:33] LABS: African American GFR (CKD) >90 (>60 ml/min/1.73 sqM); Anion Gap 10 mmol/L; Blood Urea Nitrogen 11 mg/dL (9-20); Calcium 7.6 mg/dL (8.4-10.2); Carbon Dioxide 19 mmol/L (22-30); Chloride 111 mmol/L (98-107); Glucose 80 mg/dL (74-99); Non-African American GFR(CKD) >90 (>60 ml/min/1.73 sqM); Potassium 3.4 mmol/L (3.5-5.1); Sodium 140 mmol/L (137-145)
[2021-02-18] MEDS: ACETAMINOPHEN IV (For NPO) 1,000 MG in EMPTY BAG 1 BAG IVPB SCH ×2 (12:40→18:05)
--- NOTE | 2021-02-18 12:49 | P.PN ---
Progress Note - Text Progress Note Date: 02/18/21 POD #4 S/P repair of bladder laceration, having incisional pain, has not passed flatus. Output from BLU serosing, mishra with clear yellow urine Exam abdomen soft, distended, tenderness along the incision A/P POD #4 Continue Mishra catheter drainage. Mishra will be in place until 03/04/21, c ystogram will be obtained prior to catheter removal. Ambulate -Keep BLU in place
--- NOTE | 2021-02-18 13:16 | P.PN ---
Subjective Progress Note Date: 02/18/21 CHIEF COMPLAINT: History of perforated diverticulitis HISTORY OF PRESENT ILLNESS: Patient is postop day #5 status post sigmoid resection and lower anterior resection. Patient had postoperative hematuria and was taken back to the OR for repair of bladder perforation. Patient was seen by urology. Had cystogram completed showing urinary bladder leak. Patient was taken back to the OR and is status post exploratory laparotomy and repair of bladder dome laceration by Dr. Danielle and Dr. Carmona. On 02/16/2021 patient did require to go back to the OR for exploratory laparotomy evacuation of clot and control of intra-abdominal bleeder due to bleeding from the bladder dome. Patient's urine is more clear. He is seen by urology. Has NG tube in place with 450 ML of brownish output. BLU drain sanguinous output of 170 mL overnight. Afebrile. WBC is 15.22 hemoglobin 7.7. Patient does report abdominal pain. Controlled with pain medication. PHYSICAL EXAM: VITAL SIGNS: Reviewed. GENERAL: Well-developed in no acute distress. HEENT: No sclera icterus. Extraocular movements grossly intact. Moist buccal mucosa. Head is atraumatic, normocephalic. ABDOMEN: Soft. Nondistended. Incision site with prevana dressing is clean dry and intact. BLU drain with sanguinous output NEUROLOGIC: Awake and alert. Slightly confused. ASSESSMENT: 1. History of perforated diverticulitis status post sigmoid resection and lower anterior resection 2. Bladder laceration status post repair 3. Acute blood loss anemia secondary to bladder laceration PLAN: -Continue Delatorre catheter until 03/04/2021, cystogram will be obtained prior to catheter removal per urology -Continue NG tube for decompression -Continue IV fluids -Continue pain medication as needed -Add IV Tylenol for pain. IV narcotics may be adding to patient's confusion -Continue antiemetics -Continue antibiotics -Encouraged patient to use incentive spirometer and to increase activity -GI prophylaxis Protonix and DVT prophylaxis subcu heparin Physician Control Systems Developer note has been reviewed by physician. Signing provider agrees with the documented findings, assessment, and plan of care. Objective - Vital Signs Vital signs: Vital Signs Temp 98.0 F 02/18/21 08:00 Pulse 71 02/18/21 08:00 Resp 16 02/18/21 08:00 BP 157/68 02/18/21 08:00 Pulse Ox 97 11/01/21 08:00 Intake & Output 02/17/21 02/18/21 02/18/21 18:59 06:59 18:59 Intake Total 100 Output Total 1939 124 Balance -1840 -1240 Intake: Intake, IV Titration 100 Amount Sodium Ferric Gluconat- 100 Sucrose 125 mg In Sodium Chloride 0.9% 100 ml @ 100 mls/hr IVPB DAILY [facility] Rx#:[id number] Output: Gastric Drainage 300 Drainage 240 240 Abdomen 240 240 Urine 1400 1000 Uretheral (Delatorre) 900 Other: Voiding Method Indwelling Catheter Indwelling Catheter Indwelling Catheter - Labs CBC & Chem 7: 02/18/21 11:18 02/18/21 11:18 Labs: Abnormal Lab Results - Last 24 Hours (Table) 02/18/21 02/18/21 Range/Units 11:18 11:18 WBC 11.9 H (3.8-10.6) k/uL RBC 2.72 L (4.30-5.90) m/uL Hgb 8.4 L (13.0-17.5) gm/dL Hct 25.5 L (39.0-53.0) % RDW 16.2 H (11.5-15.5) % Neutrophils # 9.3 H (1.3-7.7) k/uL Potassium 3.4 L (3.5-5.1) mmol/L Chloride 111 H (98-107) mmol/L Carbon Dioxide 19 L (22-30) mmol/L Calcium 7.6 L (8.4-10.2) mg/dL
[2021-02-18 13:33] LABS: % Iron Saturation 22.03 (15.00-50.00)
[2021-02-18 14:21] VITALS: BMI 22.8
[2021-02-18] MEDS ORDERED: Potassium Replacement Protocol 1 EACH MISC MISCELLANE PRN (15:04)
[2021-02-18] MEDS ORDERED: POTASSIUM CHLORIDE ER 20 MEQ TAB.ER PO STA (15:12)
[2021-02-18] MEDS ORDERED: POTASSIUM CHLORIDE 10 MEQ in WATER FOR INJECTION 1 100ML.BAG IVPB SCH (16:00)
--- NOTE | 2021-02-18 19:17 | P.PN ---
Progress Note - Text Progress Note Date: 02/18/21 - Chief Complaint Abdominal pain This is a pleasant 70-year-old patient who follows with Dr. Ramirez. Chronic stable medical conditions include hyperlipidemia, history of prostate cancer in 2006 that was treated with surgery. Patient's had recurrent bouts of diverticulitis. He had microperforation with abscesses in the past. Patient with it for a scheduled sigmoid colon resection. Yesterday evening he underwent sigmoid resection with low anterior resection. In the recovery room patient was noted to have blood in the Delatorre catheter. It persisted. Patient was taken back to the operating room. They appeared to be a 3 cm opening of the bladder. That was repaired. 100 mL of fluid was removed from the abdominal cavity. BUL drain was placed. On top of the repaired. This morning patient having some abdominal pain. No nausea vomiting. Has been started on a clear liquid diet. Patient denies any chest pain or shortness of breath. February 15: Yesterday evening patient is having copious amount of output to the BLU drain. Cystogram confirmed extravasation of urine. Patient was taken back to the operating room by Dr. Carmona and Dr. Duran. Previous sutures from the bladder wall was removed and extravasation site was repaired. Patient has a Delatorre catheter. Slight bloody drainage. Has a BLU drain. Abdominal wound VAC. Some abdominal distention. NG tube to suction. Some old pain. IV Flagyl being added February 16: Earlier today patient's hemoglobin dropped to 5.4. Patient is having significantly bloody drainage out of the BLU drain. Patient was taken back to the OR by Dr. Duran. Large blood cultures removed and wheezing was noted on the bladder dome. This was cauterized. BLU drain was replaced. Provena wound VAC was replaced. NG tube in place. Abdominal pain. Patient's brother and sister are visiting. Patient earlier was transfused blood. February 17: Sitting up in a chair for about 2 hours. Abdominal pain present. Urine is voice data communications engineer in color. Patient remains nothing by mouth. BLU drain output light serosanguineous in color. February 18: Increasing pain in the abdomen when he moves about. NG tube in place. Delatorre catheter clear output. BLU drain has serosanguineous discharge. Remains nothing by mouth. IV fluids. Not much out of the provena a wound VAC Review of systems: Was done for constitutional, cardiovascular, GI, pulmonary. relevant finding as above Past medical history to include: Hyperlipidemia, recurrent diverticulitis with microperforation, prostate cancer with surgery in 2007 Social history: Smoking a pack a day for last 50 years. Lives alone. I'll call occasionally. 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 Family history: Reviewed, noncontributory to presentation Active Medications Alvimopan (Alvimopan 12 Mg Capsule) 12 mg PO BID [facility] Stop: 02/20/21 09:01 Last Admin: 02/18/21 07:57 Dose: 12 mg Documented by: Benzocaine/Menthol (Benzocaine/Menthol Lozeng 1 Each Lozenge) 1 each MUCOUS MEM Q1HR PRN PRN Reason: Sore Throat Famotidine (Famotidine 20 Mg/2 Ml Vial) 20 mg IV Q12HR [facility] Last Admin: 02/18/21 07:56 Dose: 20 mg Documented by: Hydromorphone HCl (Hydromorphone 1 Mg/Ml 1 Ml Syringe) 1 mg IVP Q2HR PRN PRN Reason: Severe Pain Last Admin: 02/18/21 13:16 Dose: 1 mg Documented by: Piperacillin Sod/Tazobactam (Sod 3.375 gm/ Sodium Chloride) 100 mls @ 25 mls/hr IVPB Q8HR [facility] Last Admin: 02/18/21 17:19 Dose: 25 mls/hr Documented by: Sodium Chloride (Saline 0.9%) 1,000 mls @ 125 mls/hr IV .Q8H [facility] Last Admin: 02/18/21 18:29 Dose: Not Given Documented by: Metronidazole 500 mg/ IV (Solution) 100 mls @ 100 mls/hr IVPB Q6HR [facility] Last Admin: 02/18/21 17:19 Dose: 100 mls/hr Documented by: Ferric Sodium Gluconate 125 mg (/ Sodium Chloride) 110 mls @ 100 mls/hr IVPB DAILY [facility] Stop: 02/19/21 10:05 Last Admin: 02/18/21 08:04 Dose: 100 mls/hr Documented by: Acetaminophen 1,000 mg/ IV (Solution) 100 mls @ 400 mls/hr IVPB Q6HR [facility] Stop: 02/19/21 06:14 Last Admin: 02/18/21 18:05 Dose: 400 mls/hr Documented by: Lidocaine HCl (Lidocaine 1% (10mg/Ml) For Iv Start) 0.1 ml INTRADERMA PER PROTOCOL PRN PRN Reason: IV Start Metoclopramide HCl (Metoclopramide 5 Mg/Ml 2 Ml Vial) 10 mg IVP Q6HR PRN PRN Reason: Nausea and Vomiting Last Admin: 02/16/21 09:09 Dose: 10 mg Documented by: Miscellaneous Information (Potassium Replacement Protocol 1 Each Misc) 1 each MISCELLANE DAILY PRN; Protocol PRN Reason: Per Protocol Nicotine (Nicotine 21mg/24hr Patch) 1 patch TRANSDERM DAILY [facility] Last Admin: 02/18/21 07:56 Dose: 1 patch Documented by: Ondansetron HCl (Ondansetron 4 Mg/2 Ml Vial) 4 mg IVP Q8HR PRN PRN Reason: Nausea And Vomiting Simethicone (Simethicone 40 Mg/0.6 Ml Drops 2,000 Mg/30 Ml Bottle) 40 mg PO QID [facility] Last Admin: 02/18/21 18:06 Dose: 40 mg Documented by: Physical examination: VITAL SIGNS: 98, 71, 16, 157/68, 97% on 2 L GENERAL: Laying in bed, awake. EYES: Pupils equal. Conjunctiva normal. HEENT: External appearance of nose and ears normal, NG tube NECK: JVD not raised; masses not palpable. HEART: First and second heart sounds are normal; no edema. LUNGS: Respiratory rate normal; decreased breath sounds. ABDOMEN: Soft, , tender, liver spleen not palpable, no masses palpable. BLU drain. Provena wound VAC. Delatorre catheter PSYCH: Alert and oriented x3; mood and affect anxious INVESTIGATIONS, reviewed in the clinical context: February 18: White count 11.9 hemoglobin 8.4 platelets 292 potassium 3.4 BUN 19 creatinine 0.68 sodium 140 February 17: W BC 15.2 hemoglobin 7.7 potassium 3.7 creatinine 0.81 February 16: White count 13.5 hemoglobin 5.4 platelets 259 potassium 4.1 creatinine 0.85 February 15: WBC 18.8 hemoglobin 7.7 potassium 4.7 BUN 17 creatinine 1.26 White count 15.5 hemoglobin 11.2 platelets 333 potassium 4.4 creatinine 0.8 Albumin 2.7 Coronavirus [PCR]: Not detected Assessment and plan: -Sigmoid resection with low anterior resection for recurrent diverticulitis BLU drain -Acute hematuria from bladder wall trauma/perforation during surgery. taken back to have surgical repair. Late in the evening and cystogram confirmed further extravasation of urine. Taken back to the OR by Dr. Duran and Dr. Carmona. Previous sutures were removed. Repair of the bladder was done. Delatorre placed. Subsequent day increased bloody output to the BLU drain. Causing vessel noted on bladder dome. Cauterized. Wound VAC replaced. -Acute severe blood loss anemia, bleeding from the bladder improved Hemoglobin dropped from 5.4. 2 units of blood transfused -Sinus tachycardia from acute anemia and pain Telemetry -Acute kidney injury, prerenal/ATN: Better Creatinine gone up from 0.71-1.26. IV fluids. Follow I's and O's -Hyperlipidemia Lipitor 80 mg daily -Chronic nicotine dependence, cigarette smoker Nicotine patch -Hypoalbuminemia, acute phase reactant -Normocytic anemia likely from chronic diverticulitis Follow H&H -Mild hyponatremia: Corrected IV fluids. Follow labs IV Zosyn. IV Flagyl 500 mg every 6. Follow H&H. IV fluids. discussed with the patient. Activity as tolerated.
[2021-02-19] MEDS: ACETAMINOPHEN IV (For NPO) 1,000 MG in EMPTY BAG 1 BAG IVPB SCH ×2 (00:17→05:30)
[2021-02-19] MEDS: PIPERACILLIN-TAZOBACTAM 3.375 GM in SODIUM CHLORIDE 0.9% 100 ML IVPB SCH ×3 (00:18→16:55)
[2021-02-19] MEDS: metroNIDAZOLE-NS PMX 500 MG in SALINE 1 100ML.BAG IVPB SCH ×4 (00:18→17:59)
[2021-02-19] MEDS: HYDROmorphone 1 MG/ML 1 ML SYRINGE IVP PRN ×3 (00:48→11:46)
[2021-02-19] MEDS: SODIUM CHLORIDE 0.9% 1,000 ML IV SCH ×3 (01:40→17:56)
[2021-02-19] MEDS: METOCLOPRAMIDE 5 MG/ML 2 ML VIAL IVP PRN (02:00)
[2021-02-19] MEDS: ALVIMOPAN 12 MG CAPSULE PO SCH ×2 (07:56→20:51)
[2021-02-19] MEDS: FAMOTIDINE 20 MG/2 ML VIAL IV SCH ×2 (07:56→20:53)
[2021-02-19] MEDS: NICOTINE 21MG/24HR PATCH TRANSDERM SCH (07:56)
[2021-02-19] MEDS: SIMETHICONE 40 MG/0.6 ML DROPS 2,000 MG/30 ML BOTTLE PO SCH ×4 (07:57→21:05)
[2021-02-19] MEDS: SODIUM FERRIC GLUCONAT-SUCROSE 125 MG in SODIUM CHLORIDE 0.9% 100 ML IVPB SCH (08:58)
[2021-02-19 09:04] LABS: Anisocytosis Slight; Basophils # (A) 0.1 k/uL (0-0.2); Basophils % (A) 1 %; Eosinophils # (A) 0.5 k/uL (0-0.7); Eosinophils % (A) 4 %; HCT 27.3 % (39.0-53.0); HGB 9.2 gm/dL (13.0-17.5); Lymphocytes # (A) 1.3 k/uL (1.0-4.8); Lymphocytes % (A) 9 %; MCH 31.7 pg (25.0-35.0); MCHC 33.5 g/dL (31.0-37.0); MCV 94.7 fL (80.0-100.0); Mean Platelet Volume 9.4; Monocytes % (A) 7 %; Neutrophils # (A) 11.7 k/uL (1.3-7.7); Neutrophils % (A) 79 %; Platelet Count 334 k/uL (150-450); Poikilocytosis Slight; RBC 2.89 m/uL (4.30-5.90); WBC 14.9 k/uL (3.8-10.6)
[2021-02-19 09:14] LABS: African American GFR (CKD) >90 (>60 ml/min/1.73 sqM); Anion Gap 9 mmol/L; Blood Urea Nitrogen 8 mg/dL (9-20); Calcium 7.5 mg/dL (8.4-10.2); Carbon Dioxide 20 mmol/L (22-30); Chloride 107 mmol/L (98-107); Glucose 110 mg/dL (74-99); Non-African American GFR(CKD) >90 (>60 ml/min/1.73 sqM); Potassium 3.2 mmol/L (3.5-5.1); Sodium 136 mmol/L (137-145)
--- NOTE | 2021-02-19 09:38 | P.PN ---
Progress Note - Text Progress Note Date: 02/19/21 POD #5 S/P repair of bladder laceration, having incisional pain, passing flatus. Output from BLU serosing, mishra with clear yellow urine Exam abdomen soft, distended, tenderness along the incision BLU serosing mishra urine clear A/P POD #5 -Continue Mishra catheter drainage. Mishra will be in place until 03/04/21, cystogram will be obtained prior to catheter removal. -Ambulate -Keep BLU in place
[2021-02-19] MEDS ORDERED: POTASSIUM CHLORIDE ER 20 MEQ TAB.ER PO STA ×3 (11:18→21:18)
--- NOTE | 2021-02-19 12:37 | P.PN ---
Progress Note - Text Progress Note Date: 02/19/21 - Chief Complaint Abdominal pain This is a pleasant 70-year-old patient who follows with Dr. Ramirez. Chronic stable medical conditions include hyperlipidemia, history of prostate cancer in 2006 that was treated with surgery. Patient's had recurrent bouts of diverticulitis. He had microperforation with abscesses in the past. Patient with it for a scheduled sigmoid colon resection. Yesterday evening he underwent sigmoid resection with low anterior resection. In the recovery room patient was noted to have blood in the Delatorre catheter. It persisted. Patient was taken back to the operating room. They appeared to be a 3 cm opening of the bladder. That was repaired. 100 mL of fluid was removed from the abdominal cavity. BLU drain was placed. On top of the repaired. This morning patient having some abdominal pain. No nausea vomiting. Has been started on a clear liquid diet. Patient denies any chest pain or shortness of breath. February 15: Yesterday evening patient is having copious amount of output to the BLU drain. Cystogram confirmed extravasation of urine. Patient was taken back to the operating room by Dr. Carmona and Dr. Duran. Previous sutures from the bladder wall was removed and extravasation site was repaired. Patient has a Delatorre catheter. Slight bloody drainage. Has a BLU drain. Abdominal wound VAC. Some abdominal distention. NG tube to suction. Some old pain. IV Flagyl being added February 16: Earlier today patient's hemoglobin dropped to 5.4. Patient is having significantly bloody drainage out of the BLU drain. Patient was taken back to the OR by Dr. Duran. Large blood cultures removed and wheezing was noted on the bladder dome. This was cauterized. BLU drain was replaced. Provena wound VAC was replaced. NG tube in place. Abdominal pain. Patient's brother and sister are visiting. Patient earlier was transfused blood. February 17: Sitting up in a chair for about 2 hours. Abdominal pain present. Urine is employee training specialist in color. Patient remains nothing by mouth. BLU drain output light serosanguineous in color. February 18: Increasing pain in the abdomen when he moves about. NG tube in place. Delatorre catheter clear output. BLU drain has serosanguineous discharge. Remains nothing by mouth. IV fluids. Not much out of the provena a wound VAC February 19: Sitting up in a chair. Abdominal pain present. Urine from Delatorre catheter is clear. BLU drain serosanguineous output. Patient did pass a bit of flatus.. Ice chips allowed. Review of systems: Was done for constitutional, cardiovascular, GI, pulmonary. relevant finding as above Active Medications Alvimopan (Alvimopan 12 Mg Capsule) 12 mg PO BID [facility] Stop: 02/20/21 09:01 Last Admin: 02/19/21 07:56 Dose: 12 mg Documented by: Benzocaine/Menthol (Benzocaine/Menthol Lozeng 1 Each Lozenge) 1 each MUCOUS MEM Q1HR PRN PRN Reason: Sore Throat Famotidine (Famotidine 20 Mg/2 Ml Vial) 20 mg IV Q12HR [facility] Last Admin: 02/19/21 07:56 Dose: 20 mg Documented by: Hydromorphone HCl (Hydromorphone 1 Mg/Ml 1 Ml Syringe) 1 mg IVP Q2HR PRN PRN Reason: Severe Pain Last Admin: 02/19/21 11:46 Dose: 1 mg Documented by: Piperacillin Sod/Tazobactam (Sod 3.375 gm/ Sodium Chloride) 100 mls @ 25 mls/hr IVPB Q8HR [facility] Last Admin: 02/19/21 07:56 Dose: 25 mls/hr Documented by: Sodium Chloride (Saline 0.9%) 1,000 mls @ 125 mls/hr IV .Q8H [facility] Last Admin: 02/19/21 08:58 Dose: 125 mls/hr Documented by: Metronidazole 500 mg/ IV (Solution) 100 mls @ 100 mls/hr IVPB Q6HR [facility] Last Admin: 02/19/21 11:47 Dose: 100 mls/hr Documented by: Lidocaine HCl (Lidocaine 1% (10mg/Ml) For Iv Start) 0.1 ml INTRADERMA PER PROTOCOL PRN PRN Reason: IV Start Metoclopramide HCl (Metoclopramide 5 Mg/Ml 2 Ml Vial) 10 mg IVP Q6HR PRN PRN Reason: Nausea and Vomiting Last Admin: 02/19/21 02:00 Dose: 10 mg Documented by: Miscellaneous Information (Potassium Replacement Protocol 1 Each Misc) 1 each MISCELLANE DAILY PRN; Protocol PRN Reason: Per Protocol Nicotine (Nicotine 21mg/24hr Patch) 1 patch TRANSDERM DAILY [facility] Last Admin: 02/19/21 07:56 Dose: Not Given Documented by: Ondansetron HCl (Ondansetron 4 Mg/2 Ml Vial) 4 mg IVP Q8HR PRN PRN Reason: Nausea And Vomiting Simethicone (Simethicone 40 Mg/0.6 Ml Drops 2,000 Mg/30 Ml Bottle) 40 mg PO QID [facility] Last Admin: 02/19/21 07:57 Dose: 40 mg Documented by: Past medical history to include: Hyperlipidemia, recurrent diverticulitis with microperforation, prostate cancer with surgery in 2006 Social history: Smoking a pack a day for last 50 years. Lives alone. I'll call occasionally. 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 Family history: Reviewed, noncontributory to presentation Physical examination: VITAL SIGNS: 98.2, 71, 18, 154/67, 96% room air GENERAL: Laying in bed, awake. EYES: Pupils equal. Conjunctiva normal. HEENT: External appearance of nose and ears normal, NG tube NECK: JVD not raised; masses not palpable. HEART: First and second heart sounds are normal; no edema. LUNGS: Respiratory rate normal; decreased breath sounds. ABDOMEN: Soft, , tender, liver spleen not palpable, no masses palpable. BLU drain. Provena wound VAC. Delatorre catheter PSYCH: Alert and oriented x3; mood and affect anxious INVESTIGATIONS, reviewed in the clinical context: February 19: WBC 14.9 hemoglobin 9.2 platelets 334 sodium 136 potassium 3.2 creatinine 0.6 February 18: White count 11.9 hemoglobin 8.4 platelets 292 potassium 3.4 BUN 19 creatinine 0.68 sodium 140 February 17: W BC 15.2 hemoglobin 7.7 potassium 3.7 creatinine 0.81 February 16: White count 13.5 hemoglobin 5.4 platelets 259 potassium 4.1 crea tinine 0.85 February 15: WBC 18.8 hemoglobin 7.7 potassium 4.7 BUN 17 creatinine 1.26 White count 15.5 hemoglobin 11.2 platelets 333 potassium 4.4 creatinine 0.8 Albumin 2.7 Coronavirus [PCR]: Not detected Assessment and plan: -Sigmoid resection with low anterior resection for recurrent diverticulitis BLU drain -Acute hematuria from bladder wall trauma/perforation during surgery. taken back to have surgical repair. Late in the evening and cystogram confirmed further extravasation of urine. Taken back to the OR by Dr. Duran and Dr. Carmona. Previous sutures were removed. Repair of the bladder was done. Delatorre placed. Subsequent day increased bloody output to the BLU drain. Bleeding vessel noted on bladder dome. Cauterized. Wound VAC replaced. -Acute severe blood loss anemia, bleeding from the bladder improved Hemoglobin dropped from 5.4. 2 units of blood transfused -Sinus tachycardia from acute anemia and pain Telemetry -Acute kidney injury, prerenal/ATN: Improved Creatinine gone up from 0.71-1.26. IV fluids. Follow I's and O's -Hyperlipidemia Lipitor 80 mg daily -Chronic nicotine dependence, cigarette smoker Nicotine patch -Hypoalbuminemia, acute phase reactant -Normocytic anemia likely from chronic diverticulitis Follow H&H -Mild hyponatremia: IV fluids. Follow labs IV Zosyn. IV Flagyl 500 mg every 6. Follow H&H. IV fluids. Ice chips. Up in a chair. Activity as tolerated.
--- NOTE | 2021-02-19 14:31 | P.PN ---
Subjective Progress Note Date: 02/19/21 CHIEF COMPLAINT: History of perforated diverticulitis HISTORY OF PRESENT ILLNESS: Patient is postop day #6 status post sigmoid resection and lower anterior resection. Patient had postoperative hematuria and was taken back to the OR for repair of bladder perforation. Patient was seen by urology. Had cystogram completed showing urinary bladder leak. Patient was taken back to the OR and is status post exploratory laparotomy and repair of bladder dome laceration by Dr. Danielle and Dr. Carmona. On 02/16/2021 patient did require to go back to the OR for exploratory laparotomy evacuation of clot and control of intra-abdominal bleeder due to bleeding from the bladder dome. He is seen by urology. Patient had a bowel movement and flatus. Started on clear liquid diet yesterday. Denies any nausea or vomiting. Pain is controlled. BLU drain output 225 mL sanguinous fluid. Patient's NG tube was r emoved yesterday afternoon. Afebrile. WBC is up from 11.9-14.9 and he is on Zosyn hemoglobin 8.4 up to 9.2 sodium 136 potassium 3.2 creatinine 0.60 PHYSICAL EXAM: VITAL SIGNS: Reviewed. GENERAL: Well-developed in no acute distress. HEENT: No sclera icterus. Extraocular movements grossly intact. Moist buccal mucosa. Head is atraumatic, normocephalic. ABDOMEN: Soft. Nondistended. Incision site with prevana dressing is clean dry and intact. BLU drain with sanguinous output NEUROLOGIC: Awake and alert. ASSESSMENT: 1. History of perforated diverticulitis status post sigmoid resection and lower anterior resection 2. Bladder laceration status post repair 3. Acute blood loss anemia secondary to bladder laceration PLAN: -Advance diet to full liquids -Add oral pain medication -Continue Delatorre catheter until 03/04/2021, cystogram will be obtained prior to catheter removal per urology -Continue IV fluids -Continue antibiotics -Encouraged patient to use incentive spirometer and to increase activity -GI prophylaxis Protonix and DVT prophylaxis subcu heparin Physician Tip Inserter note has been reviewed by physician. Signing provider agrees with the documented findings, assessment, and plan of care. Objective - Vital Signs Vital signs: Vital Signs Temp 98.2 F 02/19/21 14:00 Pulse 79 02/19/21 14:00 Resp 18 02/19/21 14:00 BP 149/71 02/19/21 14:00 Pulse Ox 95 02/19/21 14:00 Intake & Output 02/18/21 02/19/21 02/19/21 18:59 06:59 18:59 Intake Total 1900 Output Total 3982 011 825 Balance 500 -475 -742 Weight 68.2 kg Intake: Intake, IV Titration 1900 Amount ACETAMINOPHEN IV (For NPO 100 ) 1,000 mg In Empty Bag 1 bag @ 400 mls/hr IVPB Q6HR [facility] Rx#:[id number] Sodium Chloride 0.9% 1, 1500 000 ml @ 125 mls/hr IV . Q8H [facility] Rx#:[id number] Sodium Ferric Gluconat- 100 Sucrose 125 mg In Sodium Chloride 0.9% 100 ml @ 100 mls/hr IVPB DAILY [facility] Rx#:[id number] metroNIDAZOLE-NS PMX 500 200 mg In Saline 1 100ml.bag @ 100 mls/hr IVPB Q6HR [facility] Rx#:[id number] Output: Gastric Drainage 200 Drainage 225 325 230 Abdomen 225 325 230 Urine 850 650 550 Other: Voiding Method Indwelling Catheter Indwelling Catheter Indwelling Catheter - Labs CBC & Chem 7: 02/19/21 08:12 02/19/21 08:12 Labs: Abnormal Lab Results - Last 24 Hours (Table) 02/16/21 02/19/21 02/19/21 Range/Units 05:54 08:12 08:12 WBC 14.9 H (3.8-10.6) k/uL RBC 2.89 L (4.30-5.90) m/uL Hgb 9.2 L (13.0-17.5) gm/dL Hct 27.3 L (39.0-53.0) % RDW 17.0 H (11.5-15.5) % Neutrophils # 11.7 H (1.3-7.7) k/uL Sodium 136 L (137-145) mmol/L Potassium 3.2 L (3.5-5.1) mmol/L Carbon Dioxide 20 L (22-30) mmol/L BUN 8 L (9-20) mg/dL Creatinine 0.60 L (0.66-1.25) mg/dL Glucose 110 H (74-99) mg/dL Calcium 7.5 L (8.4-10.2) mg/dL Crossmatch See Detail
[2021-02-19] MEDS: HYDROcodone/APAP 5-325MG 1 EACH TAB PO PRN (21:05)
[2021-02-20] MEDS: metroNIDAZOLE-NS PMX 500 MG in SALINE 1 100ML.BAG IVPB SCH ×4 (00:28→17:58)
[2021-02-20] MEDS: PIPERACILLIN-TAZOBACTAM 3.375 GM in SODIUM CHLORIDE 0.9% 100 ML IVPB SCH ×3 (00:29→16:18)
[2021-02-20 04:18] LABS: Anisocytosis Slight; Basophils # (A) 0.1 k/uL (0-0.2); Basophils % (A) 1 %; Eosinophils # (A) 0.4 k/uL (0-0.7); Eosinophils % (A) 2 %; HCT 30.3 % (39.0-53.0); HGB 9.8 gm/dL (13.0-17.5); Hypochromasia Slight; Lymphocytes # (A) 1.5 k/uL (1.0-4.8); Lymphocytes % (A) 10 %; MCH 31.4 pg (25.0-35.0); MCHC 32.4 g/dL (31.0-37.0); MCV 96.9 fL (80.0-100.0); Macrocytosis Slight; Mean Platelet Volume 9.1; Monocytes # (A) 1.1 k/uL (0-1.0); Monocytes % (A) 7 %; Neutrophils # (A) 12.6 k/uL (1.3-7.7); Neutrophils % (A) 79 %; Platelet Count 333 k/uL (150-450); RBC 3.12 m/uL (4.30-5.90); RDW 17.2 % (11.5-15.5); WBC 15.9 k/uL (3.8-10.6)
[2021-02-20 04:34] LABS: African American GFR (CKD) >90 (>60 ml/min/1.73 sqM); Anion Gap 8 mmol/L; Blood Urea Nitrogen 4 mg/dL (9-20); Calcium 7.5 mg/dL (8.4-10.2); Carbon Dioxide 20 mmol/L (22-30); Chloride 105 mmol/L (98-107); Glucose 86 mg/dL (74-99); Non-African American GFR(CKD) >90 (>60 ml/min/1.73 sqM); Potassium 3.3 mmol/L (3.5-5.1); Sodium 133 mmol/L (137-145)
[2021-02-20] MEDS: SODIUM CHLORIDE 0.9% 1,000 ML IV SCH ×3 (05:43→17:59)
[2021-02-20] MEDS ORDERED: POTASSIUM CHLORIDE ER 20 MEQ TAB.ER PO STA ×2 (06:50→07:53)
[2021-02-20] MEDS ORDERED: MAGNESIUM SULFATE-D5W PMX 1 GM in DEXTROSE/WATER 1 100ML.BAG IVPB ONE (08:00)
[2021-02-20] MEDS: NICOTINE 21MG/24HR PATCH TRANSDERM SCH (10:12)
[2021-02-20] MEDS: ALVIMOPAN 12 MG CAPSULE PO SCH (10:19)
[2021-02-20] MEDS: SIMETHICONE 40 MG/0.6 ML DROPS 2,000 MG/30 ML BOTTLE PO SCH ×4 (10:32→21:38)
[2021-02-20] MEDS: FAMOTIDINE 20 MG/2 ML VIAL IV SCH ×2 (10:33→21:37)
--- NOTE | 2021-02-20 13:00 | P.PN ---
Progress Note - Text Progress Note Date: 02/20/21 POD #6 S/P repair of bladder laceration, having incisional pain, passing flatus tolerating diet. Output from BLU serosing, mishra with clear yellow urine Exam abdomen soft, distended, tenderness along the incision BLU serosing mishra urine clear A/P POD #6 -Continue Mishra catheter drainage. Mishra will be in place until 03/04/21, cystogram will be obtained prior to catheter removal. -Ambulate -Keep BLU in place given high output, creat is stable and having good urine output from mishra, high output unlikely to be a urine leak.
--- NOTE | 2021-02-20 14:53 | P.PN ---
Subjective Progress Note Date: 02/20/21 CHIEF COMPLAINT: History of perforated diverticulitis HISTORY OF PRESENT ILLNESS: Patient is postop day #7 status post sigmoid resection and lower anterior resection. Patient had postoperative hematuria and was taken back to the OR for repair of bladder perforation. Patient was seen by urology. Had cystogram completed showing urinary bladder leak. Patient was taken back to the OR and is status post exploratory laparotomy and repair of bladder dome laceration by Dr. Danielle and Dr. Carmona. On 02/16/2021 patient did require to go back to the OR for exploratory laparotomy evacuation of clot and control of intra-abdominal bleeder due to bleeding from the bladder dome. Patient is followed closely by urology. Delatorre catheter remains in place and urine is clear. Patient BLU drain with 400 sanguinous output through the night. He is sitting up at bedside chair. He is having bowel movements and flatus. He is on a full liquid diet. Afebrile. White count up at 15.9 hemoglobin 9.8 platelets 333 sodium 133 potassium is 3.3 creatinine 0.62 magnesium 1.8 PHYSICAL EXAM: VITAL SIGNS: Reviewed. GENERAL: Well-developed in no acute distress. HEENT: No sclera icterus. Extraocular movements grossly intact. Moist buccal mucosa. Head is atraumatic, normocephalic. ABDOMEN: Soft. Nondistended. Incision site with prevana dressing is clean dry and intact. BLU drain with sanguinous output NEUROLOGIC: Awake and alert. ASSESSMENT: 1. History of perforated diverticulitis status post sigmoid resection and lower anterior resection 2. Bladder laceration status post repair 3. Acute blood loss anemia secondary to bladder laceration 4. Hypokalemia and hypomagnesemia receiving supplement PLAN: -continue full liquids -continue pain medication as needed -Continue Delatorre catheter until 03/04/2021, cystogram will be obtained prior to catheter removal per urology -Continue IV fluids -Continue antibiotics -Encouraged patient to use incentive spirometer and to increase activity -Continue to work with PT OT -Consult social work for possible ECF placement -GI prophylaxis Protonix and DVT prophylaxis subcu heparin Physician Outside Machinist Supervisor note has been reviewed by physician. Signing provider agrees with the documented findings, assessment, and plan of care. Objective - Vital Signs Vital signs: Vital Signs Temp 97.9 F 02/20/21 08:00 Pulse 77 02/20/21 08:00 Resp 16 02/20/21 08:00 BP 136/73 02/20/21 08:00 Pulse Ox 96 02/20/21 08:00 Intake & Output 02/19/21 02/20/21 02/20/21 18:59 06:59 18:59 Intake Total 1999 Output Total 940 1730 90 Balance 1060 -1730 -90 Weight 68.2 kg Intake: Intake, IV Titration 2000 Amount Piperacillin-Tazobactam 3 200 .375 gm In Sodium Chloride 0.9% 100 ml @ 25 mls/hr IVPB Q8HR [facility] Rx# :[id number] Sodium Chloride 0.9% 1, 1500 000 ml @ 125 mls/hr IV . Q8H [facility] Rx#:[id number] Sodium Ferric Gluconat- 100 Sucrose 125 mg In Sodium Chloride 0.9% 100 ml @ 100 mls/hr IVPB DAILY [facility] Rx#:[id number] metroNIDAZOLE-NS PMX 500 200 mg In Saline 1 100ml.bag @ 100 mls/hr IVPB Q6HR [facility] Rx#:[id number] Output: Drainage 390 280 90 Abdomen 390 280 90 Urine 550 1450 Other: Voiding Method Indwelling Catheter Indwelling Catheter Indwelling Catheter # Bowel Movements 2 1 1 - Labs CBC & Chem 7: 02/20/21 03:38 02/20/21 03:38 Labs: Abnormal Lab Results - Last 24 Hours (Table) 02/19/21 02/20/21 02/20/21 Range/Units 17:58 03:38 03:38 WBC 15.9 H (3.8-10.6) k/uL RBC 3.12 L (4.30-5.90) m/uL Hgb 9.8 L (13.0-17.5) gm/dL Hct 30.3 L (39.0-53.0) % RDW 17.2 H (11.5-15.5) % Neutrophils # 12.6 H (1.3-7.7) k/uL Monocytes # 1.1 H (0-1.0) k/uL Sodium 133 L (137-145) mmol/L Potassium 3.0 L 3.3 L (3.5-5.1) mmol/L Carbon Dioxide 20 L (22-30) mmol/L BUN 4 L (9-20) mg/dL Creatinine 0.62 L (0.66-1.25) mg/dL Calcium 7.5 L (8.4-10.2) mg/dL
[2021-02-20] MEDS: HYDROcodone/APAP 5-325MG 1 EACH TAB PO PRN (17:27)
--- NOTE | 2021-02-20 20:16 | P.PN ---
Progress Note - Text Progress Note Date: 02/20/21 - Chief Complaint Abdominal pain This is a pleasant 70-year-old patient who follows with Dr. Ramirez. Chronic stable medical conditions include hyperlipidemia, history of prostate cancer in 2006 that was treated with surgery. Patient's had recurrent bouts of diverticulitis. He had microperforation with abscesses in the past. Patient with it for a scheduled sigmoid colon resection. Yesterday evening he underwent sigmoid resection with low anterior resection. In the recovery room patient was noted to have blood in the Delatorre catheter. It persisted. Patient was taken back to the operating room. They appeared to be a 3 cm opening of the bladder. That was repaired. 100 mL of fluid was removed from the abdominal cavity. BLU drain was placed. On top of the repaired. This morning patient having some abdominal pain. No nausea vomiting. Has been started on a clear liquid diet. Patient denies any chest pain or shortness of breath. February 15: Yesterday evening patient is having copious amount of output to the BLU drain. Cystogram confirmed extravasation of urine. Patient was taken back to the operating room by Dr. Carmona and Dr. Duran. Previous sutures from the bladder wall was removed and extravasation site was repaired. Patient has a Delatorre catheter. Slight bloody drainage. Has a BLU drain. Abdominal wound VAC. Some abdominal distention. NG tube to suction. Some old pain. IV Flagyl being added February 16: Earlier today patient's hemoglobin dropped to 5.4. Patient is having significantly bloody drainage out of the BLU drain. Patient was taken back to the OR by Dr. Duran. Large blood cultures removed and wheezing was noted on the bladder dome. This was cauterized. BLU drain was replaced. Provena wound VAC was replaced. NG tube in place. Abdominal pain. Patient's brother and sister are visiting. Patient earlier was transfused blood. February 17: Sitting up in a chair for about 2 hours. Abdominal pain present. 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 Patient remains nothing by mouth. BLU drain output light serosanguineous in color. February 18: Increasing pain in the abdomen when he moves about. NG tube in place. Delatorre catheter clear output. BLU drain has serosanguineous discharge. Remains nothing by mouth. IV fluids. Not much out of the provena a wound VAC February 19: Sitting up in a chair. Abdominal pain present. Urine from Delatorre catheter is clear. BLU drain serosanguineous output. Patient did pass a bit of flatus.. Ice chips allowed. February 20: Up in a chair. Abdominal pain present. Urine from Delatorre cath is clear. BLU drain remains serosanguineous with about 400 mL overnight. On liquid diet. Did have a mushy stool. Review of systems: Was done for constitutional, cardiovascular, GI, pulmonary. relevant finding as above Active Medications Hydrocodone Bitart/Acetaminophen (Hydrocodone/Apap 5-325mg 1 Each Tab) 1 each PO Q4HR PRN PRN Reason: Moderate Pain Last Admin: 02/20/21 17:27 Dose: 1 each Documented by: Benzocaine/Menthol (Benzocaine/Menthol Lozeng 1 Each Lozenge) 1 each MUCOUS MEM Q1HR PRN PRN Reason: Sore Throat Famotidine (Famotidine 20 Mg/2 Ml Vial) 20 mg IV Q12HR [facility] Last Admin: 02/20/21 10:33 Dose: 20 mg Documented by: Hydromorphone HCl (Hydromorphone 1 Mg/Ml 1 Ml Syringe) 1 mg IVP Q2HR PRN PRN Reason: Severe Pain Last Admin: 02/19/21 11:46 Dose: 1 mg Documented by: Piperacillin Sod/Tazobactam (Sod 3.375 gm/ Sodium Chloride) 100 mls @ 25 mls/hr IVPB Q8HR [facility] Last Admin: 02/20/21 16:18 Dose: 25 mls/hr Documented by: Sodium Chloride (Saline 0.9%) 1,000 mls @ 125 mls/hr IV .Q8H [facility] Last Admin: 02/20/21 17:59 Dose: 125 mls/hr Documented by: Metronidazole 500 mg/ IV (Solution) 100 mls @ 100 mls/hr IVPB Q6HR [facility] Last Admin: 02/20/21 17:58 Dose: 100 mls/hr Documented by: Lidocaine HCl (Lidocaine 1% (10mg/Ml) For Iv Start) 0.1 ml INTRADERMA PER PROTOCOL PRN PRN Reason: IV Start Metoclopramide HCl (Metoclopramide 5 Mg/Ml 2 Ml Vial) 10 mg IVP Q6HR PRN PRN Reason: Nausea and Vomiting Last Admin: 02/19/21 02:00 Dose: 10 mg Documented by: Miscellaneous Information (Potassium Replacement Protocol 1 Each Misc) 1 each MISCELLANE DAILY PRN; Protocol PRN Reason: Per Protocol Nicotine (Nicotine 21mg/24hr Patch) 1 patch TRANSDERM DAILY [facility] Last Admin: 02/20/21 10:12 Dose: Not Given Documented by: Ondansetron HCl (Ondansetron 4 Mg/2 Ml Vial) 4 mg IVP Q8HR PRN PRN Reason: Nausea And Vomiting Simethicone (Simethicone 40 Mg/0.6 Ml Drops 2,000 Mg/30 Ml Bottle) 40 mg PO QID [facility] Last Admin: 02/20/21 17:59 Dose: 40 mg Documented by: Past medical history to include: Hyperlipidemia, recurrent diverticulitis with microperforation, prostate cancer with surgery in 2006 Social history: Smoking a pack a day for last 50 years. Lives alone. I'll call occasionally. 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 Family history: Reviewed, noncontributory to presentation Physical examination: VITAL SIGNS: 97.5, 77, 18, 1 32 x 69, 97% room air GENERAL: Sitting up in a chair, awake EYES: Pupils equal. Conjunctiva normal. HEENT: External appearance of nose and ears normal, NG tube NECK: JVD not raised; masses not palpable. HEART: First and second heart sounds are normal; no edema. LUNGS: Respiratory rate normal; decreased breath sounds. ABDOMEN: Soft, , tender, liver spleen not palpable, no masses palpable. BLU drain. Provena wound VAC. Delatorre catheter PSYCH: Alert and oriented x3; mood and affect anxious INVESTIGATIONS, reviewed in the clinical context: February 20: WBC 15.9 hemoglobin 9.8 platelets 333 sodium 133 potassium 3.3 February 19: WBC 14.9 hemoglobin 9.2 platelets 334 sodium 136 potassium 3.2 creatinine 0.6 February 18: White count 11.9 hemoglobin 8.4 platelets 292 potassium 3.4 BUN 19 creatinine 0.68 sodium 140 February 17: W BC 15.2 hemoglobin 7.7 potassium 3.7 creatinine 0.81 February 16: White count 13.5 hemoglobin 5.4 platelets 259 potassium 4.1 creatinine 0.85 February 15: WBC 18.8 hemoglobin 7.7 potassium 4.7 BUN 17 creatinine 1.26 White count 15.5 hemoglobin 11.2 platelets 333 potassium 4.4 creatinine 0.8 Albumin 2.7 Coronavirus [PCR]: Not detected Assessment and plan: -Sigmoid resection with low anterior resection for recurrent diverticulitis BLU drain. Full liquid diet. -Acute hematuria from bladder wall trauma/perforation during surgery. taken back to have surgical repair. Late in the evening and cystogram confirmed further extravasation of urine. Taken back to the OR by Dr. Duran and Dr. Carmona. Previous sutures were removed. Repair of the bladder was done. Delatorre placed. Subsequent day increased bloody output to the BLU drain. Bleeding vessel noted on bladder dome. Cauterized. Wound VAC replaced. -Acute severe blood loss anemia, bleeding from the bladder improved Hemoglobin dropped from 5.4. 2 units of blood transfused -Sinus tachycardia from acute anemia and pain Telemetry -Acute kidney injury, prerenal/ATN: Improved Creatinine gone up from 0.71-1.26. IV fluids. Follow I's and O's -Hyperlipidemia Lipitor 80 mg daily -Chronic nicotine dependence, cigarette smoker Nicotine patch -Hypoalbuminemia, acute phase reactant -Normocytic anemia likely from chronic diverticulitis Follow H&H -Mild hyponatremia: IV fluids. Follow labs -Hypokalemia Replace potassium follow labs IV Zosyn. IV Flagyl 500 mg every 6. Follow H&H. IV fluids. For liquid diet. Up in a chair. Activity as tolerated.
[2021-02-21] MEDS: metroNIDAZOLE-NS PMX 500 MG in SALINE 1 100ML.BAG IVPB SCH ×5 (01:11→23:44)
[2021-02-21] MEDS: PIPERACILLIN-TAZOBACTAM 3.375 GM in SODIUM CHLORIDE 0.9% 100 ML IVPB SCH ×4 (01:11→23:44)
[2021-02-21] MEDS: SODIUM CHLORIDE 0.9% 1,000 ML IV SCH ×2 (06:57→17:40)
[2021-02-21] MEDS: FAMOTIDINE 20 MG/2 ML VIAL IV SCH (08:06)
[2021-02-21] MEDS: NICOTINE 21MG/24HR PATCH TRANSDERM SCH (08:06)
[2021-02-21] MEDS: SIMETHICONE 40 MG/0.6 ML DROPS 2,000 MG/30 ML BOTTLE PO SCH ×4 (08:07→23:44)
[2021-02-21 09:36] LABS: Basophils # (A) 0.04 X 10*3/uL (0.00-0.10); Basophils % (A) 0.3 %; Eosinophils # (A) 0.32 X 10*3/uL (0.04-0.35); Eosinophils % (A) 2.4 %; HCT 28.9 % (39.6-50.0); HGB 9.1 g/dL (13.0-17.0); Lymphocytes # (A) 1.11 X 10*3/uL (0.90-5.00); Lymphocytes % (A) 8.3 %; MCH 31.2 pg (27.0-32.0); MCHC 31.5 g/dL (32.0-37.0); Monocytes # (A) 1.45 X 10*3/uL (0.20-1.00); Monocytes % (A) 10.8 %; Neutrophils # (A) 9.86 X 10*3/uL (1.80-7.70); Neutrophils % (A) 73.4 %; Platelet Count 312 X 10*3/uL (140-440); RBC 2.92 X 10*6/uL (4.40-5.60); WBC 13.43 X 10*3/uL (4.50-10.00)
[2021-02-21] MEDS: HYDROcodone/APAP 5-325MG 1 EACH TAB PO PRN ×3 (10:06→21:21)
--- NOTE | 2021-02-21 11:40 | P.PN ---
Progress Note - Text Progress Note Date: 02/21/21 POD #7 S/P repair of bladder laceration, having incisional pain, passing flatus tolerating diet. Output from BLU serosing, mishra with clear yellow urine Exam abdomen soft, distended, tenderness along the incision BLU serosing mishra urine clear A/P POD #7 -Continue Mishra catheter drainage. Mishra will be in place until 03/04/21, cystogram will be obtained prior to catheter removal. -Ambulate -Keep BLU in place, output decreased compared to yesterday
--- NOTE | 2021-02-21 12:40 | P.PN ---
<Omayra Bishop - Last Filed: 02/21/21 12:36> Subjective Progress Note Date: 02/21/21 CHIEF COMPLAINT: History of perforated diverticulitis HISTORY OF PRESENT ILLNESS: Patient is postop day #8 status post sigmoid resecti on and lower anterior resection. Patient had postoperative hematuria and was taken back to the OR for repair of bladder perforation. Patient was seen by urology. Had cystogram completed showing urinary bladder leak. Patient was taken back to the OR and is status post exploratory laparotomy and repair of bladder dome laceration by Dr. Danielle and Dr. Carmona. On 02/16/2021 patient did require to go back to the OR for exploratory laparotomy evacuation of clot and control of intra-abdominal bleeder due to bleeding from the bladder dome. Patient is sitting at bedside chair. He is complaining of abdominal pain today. Patient has not received any pain medications since 5:30 yesterday. Patient has been educated that it is okay to take pain medication as needed. Apparently he had been refusing pain medication. Patient has a Delatorre catheter in place. Urine output is clear. BLU drain with 180 sanguinous output through the night. BLU drain Output is decreasing. Currently on a full liquid diet. Denies any nausea or vomiting. He is having flatus. Last BM yesterday. Afebrile. WBC is down from 15.9-13.43 hemoglobin 9.1 platelets 312 BMP and MG pending PHYSICAL EXAM: VITAL SIGNS: Reviewed. GENERAL: Well-developed in no acute distress. HEENT: No sclera icterus. Extraocular movements grossly intact. Moist buccal mucosa. Head is atraumatic, normocephalic. ABDOMEN: Soft. Nondistended. Incision site with prevana dressing is clean dry and intact. BLU drain with sanguinous output NEUROLOGIC: Awake and alert. ASSESSMENT: 1. History of perforated diverticulitis status post sigmoid resection and lower anterior resection 2. Bladder laceration status post repair 3. Acute blood loss anemia secondary to bladder laceration 4. Hypokalemia and hypomagnesemia PLAN: -continue full liquids -continue pain medication as needed -Continue Delatorre catheter until 03/04/2021, cystogram will be obtained prior to catheter removal per urology -Continue IV fluids -Continue antibiotics -Encouraged patient to use incentive spirometer and to increase activity -Continue to work with PT OT -Consult social work for possible ECF placement at discharge -GI prophylaxis Protonix and DVT prophylaxis subcu heparin Physician Optical Designer note has been reviewed by physician. Signing provider agrees with the documented findings, assessment, and plan of care. Objective - Vital Signs Vital signs: Vital Signs Temp 98.5 F 02/21/21 08:00 Pulse 71 02/21/21 08:00 Resp 20 02/21/21 08:00 BP 154/64 02/21/21 08:00 Pulse Ox 96 02/21/21 08:00 Intake & Output 02/20/21 02/21/21 02/21/21 18:59 06:59 18:59 Intake Total 2000 Output Total 1020 460 110 Balance 980 -460 -110 Weight 68.2 kg Intake: Intake, IV Titration 2000 Amount Magnesium Sulfate-D5w Pmx 100 1 gm In Dextrose/Water 1 100ml.bag @ 100 mls/hr IVPB ONCE ONE Rx#: [id number] Piperacillin-Tazobactam 3 200 .375 gm In Sodium Chloride 0.9% 100 ml @ 25 mls/hr IVPB Q8HR [facility] Rx# :[id number] Sodium Chloride 0.9% 1, 1500 000 ml @ 125 mls/hr IV . Q8H [facility] Rx#:[id number] metroNIDAZOLE-NS PMX 500 200 mg In Saline 1 100ml.bag @ 100 mls/hr IVPB Q6HR [facility] Rx#:[id number] Output: Drainage 120 250 110 Abdomen 120 250 110 Urine 900 210 Other: Voiding Method Indwelling Catheter Indwelling Catheter Indwelling Catheter # Bowel Movements 2 - Labs CBC & Chem 7: 02/21/21 05:50 02/20/21 03:38 Labs: Abnormal Lab Results - Last 24 Hours (Table) 02/21/21 Range/Units 05:50 WBC 13.43 H (4.50-10.00) X 10*3/uL RBC 2.92 L (4.40-5.60) X 10*6/uL Hgb 9.1 L (13.0-17.0) g/dL Hct 28.9 L (39.6-50.0) % MCV 99.0 H (80.0-97.0) fL MCHC 31.5 L (32.0-37.0) g/dL RDW 18.0 H (11.5-14.5) % Immature Gran # 0.65 H (0.00-0.04) X 10*3/uL Neutrophils # 9.86 H (1.80-7.70) X 10*3/uL Monocytes # 1.45 H (0.20-1.00) X 10*3/uL <PricilaDarryn bullockMarcello - Last Filed: 02/21/21 17:52> Subjective As above. Patient complaining of some fatigue. Mild abdominal discomfort. Tolerating full liquids. No bowel movement today. Small amount of flatus this morning. Continue increasing activity. Keep Delatorre catheter for now. Objective - Vital Signs Vital signs: Vital Signs Temp 97.7 F 02/21/21 14:00 Pulse 74 02/21/21 14:00 Resp 18 02/21/21 14:00 BP 135/64 02/21/21 14:00 Pulse Ox 97 02/21/21 14:00 Intake & Output 02/20/21 02/21/21 02/21/21 18:59 06:59 18:59 Intake Total 2000 Output Total 9106 343 6069 Balance 980 -460 -1100 Weight 68.2 kg Intake: Intake, IV Titration 2000 Amount Magnesium Sulfate-D5w Pmx 100 1 gm In Dextrose/Water 1 100ml.bag @ 100 mls/hr IVPB ONCE ONE Rx#: [id number] Piperacillin-Tazobactam 3 200 .375 gm In Sodium Chloride 0.9% 100 ml @ 25 mls/hr IVPB Q8HR [facility] Rx# :[id number] Sodium Chloride 0.9% 1, 1500 000 ml @ 125 mls/hr IV . Q8H [facility] Rx#:[id number] metroNIDAZOLE-NS PMX 500 200 mg In Saline 1 100ml.bag @ 100 mls/hr IVPB Q6HR [facility] Rx#:[id number] Output: Drainage 120 250 200 Abdomen 120 250 200 Urine 900 210 900 Other: Voiding Method Indwelling Catheter Indwelling Catheter Indwelling Catheter # Bowel Movements 2 - Labs CBC & Chem 7: 02/21/21 05:50 02/21/21 05:50 Labs: Abnormal Lab Results - Last 24 Hours (Table) 02/21/21 02/21/21 Range/Units 05:50 05:50 WBC 13.43 H (4.50-10.00) X 10*3/uL RBC 2.92 L (4.40-5.60) X 10*6/uL Hgb 9.1 L (13.0-17.0) g/dL Hct 28.9 L (39.6-50.0) % MCV 99.0 H (80.0-97.0) fL MCHC 31.5 L (32.0-37.0) g/dL RDW 18.0 H (11.5-14.5) % Immature Gran # 0.65 H (0.00-0.04) X 10*3/uL Neutrophils # 9.86 H (1.80-7.70) X 10*3/uL Monocytes # 1.45 H (0.20-1.00) X 10*3/uL Carbon Dioxide 18.8 L (21.6-31.8) mmol/L Anion Gap 14.70 H (4.00-12.00) mmol/L BUN 3.8 L (9.0-27.0) mg/dL BUN/Creatinine Ratio 5.97 L (12.00-20.00) Ratio Glucose 69 L (70-110) mg/dL Calcium 7.3 L (8.7-10.3) mg/dL
--- NOTE | 2021-02-21 13:00 | P.PN ---
Progress Note - Text Progress Note Date: 02/21/21 - Chief Complaint Abdominal pain This is a pleasant 70-year-old patient who follows with Dr. Ramirez. Chronic stable medical conditions include hyperlipidemia, history of prostate cancer in 2006 that was treated with surgery. Patient's had recurrent bouts of diverticulitis. He had microperforation with abscesses in the past. Patient with it for a scheduled sigmoid colon resection. Yesterday evening he underwent sigmoid resection with low anterior resection. In the recovery room patient was noted to have blood in the Delatorre catheter. It persisted. Patient was taken back to the operating room. They appeared to be a 3 cm opening of the bladder. That was repaired. 100 mL of fluid was removed from the abdominal cavity. BUL drain was placed. On top of the repaired. This morning patient having some abdominal pain. No nausea vomiting. Has been started on a clear liquid diet. Patient denies any chest pain or shortness of breath. February 15: Yesterday evening patient is having copious amount of output to the BLU drain. Cystogram confirmed extravasation of urine. Patient was taken back to the operating room by Dr. Carmona and Dr. Duran. Previous sutures from the bladder wall was removed and extravasation site was repaired. Patient has a Delatorre catheter. Slight bloody drainage. Has a BLU drain. Abdominal wound VAC. Some abdominal distention. NG tube to suction. Some old pain. IV Flagyl being added February 16: Earlier today patient's hemoglobin dropped to 5.4. Patient is having significantly bloody drainage out of the BLU drain. Patient was taken back to the OR by Dr. Duran. Large blood cultures removed and wheezing was noted on the bladder dome. This was cauterized. BLU drain was replaced. Provena wound VAC was replaced. NG tube in place. Abdominal pain. Patient's brother and sister are visiting. Patient earlier was transfused blood. February 17: Sitting up in a chair for about 2 hours. Abdominal pain present. 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 Patient remains nothing by mouth. BLU drain output light serosanguineous in color. February 18: Increasing pain in the abdomen when he moves about. NG tube in place. Delatorre catheter clear output. BLU drain has serosanguineous discharge. Remains nothing by mouth. IV fluids. Not much out of the prov[place] a wound VAC February 19: Sitting up in a chair. Abdominal pain present. Urine from Delatorre catheter is clear. BLU drain serosanguineous output. Patient did pass a bit of flatus.. Ice chips allowed. February 20: Up in a chair. Abdominal pain present. Urine from Delatorre cath is clear. BLU drain remains serosanguineous with about 400 mL overnight. On liquid diet. Did have a mushy stool. February 21: Tolerating a full liquid diet. Loose BM. About 2 50 mL of serosanguineous from BLU drain overnight. Clear urine. Abdominal pain a bit better. Up in a chair. Did walk a bit. Review of systems: Was done for constitutional, cardiovascular, GI, pulmonary. relevant finding as above Active Medications Hydrocodone Bitart/Acetaminophen (Hydrocodone/Apap 5-325mg 1 Each Tab) 1 each PO Q4HR PRN PRN Reason: Moderate Pain Last Admin: 02/21/21 10:06 Dose: 1 each Documented by: Benzocaine/Menthol (Benzocaine/Menthol Lozeng 1 Each Lozenge) 1 each MUCOUS MEM Q1HR PRN PRN Reason: Sore Throat Famotidine (Famotidine 20 Mg Tab) 20 mg PO BID [facility] Furosemide (Furosemide 10 Mg/Ml 2 Ml Vial) 20 mg IV Q12HR [facility] Stop: 02/22/21 09:01 Hydromorphone HCl (Hydromorphone 1 Mg/Ml 1 Ml Syringe) 1 mg IVP Q2HR PRN PRN Reason: Severe Pain Last Admin: 02/19/21 11:46 Dose: 1 mg Documented by: Piperacillin Sod/Tazobactam (Sod 3.375 gm/ Sodium Chloride) 100 mls @ 25 mls/hr IVPB Q8HR [facility] Last Admin: 02/21/21 08:07 Dose: 25 mls/hr Documented by: Sodium Chloride (Saline 0.9%) 1,000 mls @ 125 mls/hr IV .Q8H [facility] Last Admin: 02/21/21 06:57 Dose: 125 mls/hr Documented by: Metronidazole 500 mg/ IV (Solution) 100 mls @ 100 mls/hr IVPB Q6HR [facility] Last Admin: 02/21/21 12:30 Dose: 100 mls/hr Documented by: Lidocaine HCl (Lidocaine 1% (10mg/Ml) For Iv Start) 0.1 ml INTRADERMA PER PROTOCOL PRN PRN Reason: IV Start Metoclopramide HCl (Metoclopramide 5 Mg/Ml 2 Ml Vial) 10 mg IVP Q6HR PRN PRN Reason: Nausea and Vomiting Last Admin: 02/19/21 02:00 Dose: 10 mg Documented by: Miscellaneous Information (Potassium Replacement Protocol 1 Each Misc) 1 each MISCELLANE DAILY PRN; Protocol PRN Reason: Per Protocol Nicotine (Nicotine 21mg/24hr Patch) 1 patch TRANSDERM DAILY [facility] Last Admin: 02/21/21 08:06 Dose: 1 patch Documented by: Ondansetron HCl (Ondansetron 4 Mg/2 Ml Vial) 4 mg IVP Q8HR PRN PRN Reason: Nausea And Vomiting Simethicone (Simethicone 40 Mg/0.6 Ml Drops 2,000 Mg/30 Ml Bottle) 40 mg PO QID [facility] Last Admin: 02/21/21 08:07 Dose: 40 mg Documented by: Past medical history to include: Hyperlipidemia, recurrent diverticulitis with microperforation, prostate cancer with surgery in 2006 Social history: Smoking a pack a day for last 50 years. Lives alone. I'll call occasionally. 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 Family history: Reviewed, noncontributory to presentation Physical examination: VITAL SIGNS: 98.5, 71, 20, 154/64, 96% room air GENERAL: Sitting up in a chair, awake EYES: Pupils equal. Conjunctiva normal. HEENT: External appearance of nose and ears normal, NG tube NECK: JVD not raised; masses not palpable. HEART: First and second heart sounds are normal; edema present LUNGS: Respiratory rate normal; decreased breath sounds. ABDOMEN: Soft, , tender, liver spleen not palpable, no masses palpable. BLU drain. Provena wound VAC. Delatorre catheter PSYCH: Alert and oriented x3; mood and affect anxious INVESTIGATIONS, reviewed in the clinical context: February 21: White count 13.4 hemoglobin 9.1 February 20: WBC 15.9 hemoglobin 9.8 platelets 333 sodium 133 potassium 3.3 February 19: WBC 14.9 hemoglobin 9.2 platelets 334 sodium 136 potassium 3.2 creatinine 0.6 February 18: White count 11.9 hemoglobin 8.4 platelets 292 potassium 3.4 BUN 19 creatinine 0.68 sodium 140 February 17: W BC 15.2 hemoglobin 7.7 potassium 3.7 creatinine 0.81 February 16: White count 13.5 hemoglobin 5.4 platelets 259 potassium 4.1 creatinine 0.85 February 15: WBC 18.8 hemoglobin 7.7 potassium 4.7 BUN 17 creatinine 1.26 White count 15.5 hemoglobin 11.2 platelets 333 potassium 4.4 creatinine 0.8 Albumin 2.7 Coronavirus [PCR]: Not detected Assessment and plan: -Sigmoid resection with low anterior resection for recurrent diverticulitis BLU drain. Full liquid diet. -Acute hematuria from bladder wall trauma/perforation during surgery. taken back to have surgical repair. Late in the evening and cystogram confirmed further extravasation of urine. Taken back to the OR by Dr. Duran and Dr. Carmona. Previous sutures were removed. Repair of the bladder was done. Delatorre placed. Subsequent day increased bloody output to the BLU drain. Bleeding vessel noted on bladder dome. Cauterized. Wound VAC replaced. -Acute severe blood loss anemia, bleeding from the bladder improved Hemoglobin dropped from 5.4. 2 units of blood transfused -Sinus tachycardia from acute anemia and pain Telemetry -Acute kidney injury, prerenal/ATN: Improved Creatinine gone up from 0.71-1.26. IV fluids. Follow I's and O's -Hyperlipidemia Lipitor 80 mg daily -Chronic nicotine dependence, cigarette smoker Nicotine patch -Hypoalbuminemia, acute phase reactant -Normocytic anemia likely from chronic diverticulitis Follow H&H -Mild hyponatremia: IV fluids. Follow labs -Hypokalemia Replace potassium follow labs -Acute fluid overload from IV fluids: IV Lasix 20 mg every 122 dose. Decrease IV fluids to 50 mL an hour. IV Zosyn. IV Flagyl 500 mg every 6. IV Lasix 20 mg every 12 hours 2 doses. Repeat labs in the morning. Discussed with the patient. Increase activity. Decrease IV fluids to 50 mL an hour.
[2021-02-21 14:04] LABS: African American GFR (CKD) 116.4 (60.0-200.0); Anion Gap 14.7 mmol/L (4.00-12.00); BUN/Creat Ratio 5.97 Ratio (12.00-20.00); Blood Urea Nitrogen 3.8 mg/dL (9.0-27.0); Calcium 7.3 mg/dL (8.7-10.3); Carbon Dioxide 18.8 mmol/L (21.6-31.8); Magnesium 1.8 mg/dL (1.5-2.4); Non-African American GFR(CKD) 100.4 (60.0-200.0); Potassium 3.6 mmol/L (3.5-5.5)
[2021-02-21] MEDS: LACTATED RINGERS 1,000 ML IV SCH (15:19)
[2021-02-21] MEDS: FAMOTIDINE 20 MG TAB PO SCH (21:21)
[2021-02-21] MEDS: FUROSEMIDE 10 MG/ML 2 ML VIAL IV SCH (21:22)
[2021-02-22] MEDS: HYDROcodone/APAP 5-325MG 1 EACH TAB PO PRN ×4 (02:42→22:08)
[2021-02-22] MEDS: metroNIDAZOLE-NS PMX 500 MG in SALINE 1 100ML.BAG IVPB SCH ×2 (05:38→12:05)
[2021-02-22 07:07] LABS: ALT 11 U/L (4-49); AST 17 U/L (17-59); African American GFR (CKD) >90 (>60 ml/min/1.73 sqM); Albumin 2.2 g/dL (3.5-5.0); Albumin/Globulin Ratio 0.8; Alkaline Phosphatase 38 U/L (38-126); Anion Gap 7 mmol/L; Blood Urea Nitrogen 3 mg/dL (9-20); Calcium 7.4 mg/dL (8.4-10.2); Carbon Dioxide 23 mmol/L (22-30); Chloride 105 mmol/L (98-107); Globulin 2.6 g/dL; Glucose 86 mg/dL (74-99); Non-African American GFR(CKD) >90 (>60 ml/min/1.73 sqM); Sodium 135 mmol/L (137-145); Total Bilirubin 0.3 mg/dL (0.2-1.3); Total Protein 4.8 g/dL (6.3-8.2)
[2021-02-22 07:52] LABS: Anisocytosis Slight; Basophils # (A) 0.1 k/uL (0-0.2); Basophils % (A) 1 %; Eosinophils # (A) 0.6 k/uL (0-0.7); Eosinophils % (A) 5 %; HCT 28.1 % (39.0-53.0); HGB 9.4 gm/dL (13.0-17.5); Lymphocytes # (A) 1.4 k/uL (1.0-4.8); Lymphocytes % (A) 14 %; MCH 31.9 pg (25.0-35.0); MCHC 33.4 g/dL (31.0-37.0); MCV 95.4 fL (80.0-100.0); Macrocytosis Slight; Mean Platelet Volume 9.3; Monocytes # (A) 0.9 k/uL (0-1.0); Monocytes % (A) 8 %; Neutrophils # (A) 7.2 k/uL (1.3-7.7); Neutrophils % (A) 70 %; Platelet Count 322 k/uL (150-450); Poikilocytosis Slight; RBC 2.95 m/uL (4.30-5.90); RDW 18.3 % (11.5-15.5); WBC 10.4 k/uL (3.8-10.6)
[2021-02-22] MEDS: NICOTINE 21MG/24HR PATCH TRANSDERM SCH (08:00)
[2021-02-22] MEDS: FUROSEMIDE 10 MG/ML 2 ML VIAL IV SCH (08:00)
[2021-02-22] MEDS: POTASSIUM CHLORIDE ER 20 MEQ TAB.ER PO SCH ×3 (08:01→12:04)
[2021-02-22] MEDS: LACTATED RINGERS 1,000 ML IV SCH (08:01)
[2021-02-22] MEDS: FAMOTIDINE 20 MG TAB PO SCH ×2 (08:01→20:37)
[2021-02-22] MEDS: PIPERACILLIN-TAZOBACTAM 3.375 GM in SODIUM CHLORIDE 0.9% 100 ML IVPB SCH ×2 (08:01→16:52)
[2021-02-22] MEDS: SIMETHICONE 40 MG/0.6 ML DROPS 2,000 MG/30 ML BOTTLE PO SCH ×4 (08:01→20:37)
--- NOTE | 2021-02-22 10:57 | P.PN ---
<Omayra Bishop - Last Filed: 02/22/21 10:50> Subjective Progress Note Date: 02/22/21 CHIEF COMPLAINT: History of perforated diverticulitis HISTORY OF PRESENT ILLNESS: Patient is postop day #8 status post sigmoid resecti on and lower anterior resection. Patient had postoperative hematuria and was taken back to the OR for repair of bladder perforation. Patient was seen by urology. Had cystogram completed showing urinary bladder leak. Patient was taken back to the OR and is status post exploratory laparotomy and repair of bladder dome laceration by Dr. Danielle and Dr. Carmona. On 02/16/2021 patient did require to go back to the OR for exploratory laparotomy evacuation of clot and control of intra-abdominal bleeder due to bleeding from the bladder dome. Patient is sitting at bedside chair with daughter at bedside. Patient reports that his pain is better controlled today with taking the norco. He did have some lower extremity swelling and medicine service did order 2 doses of IV Lasix. He did have a small bowel movement this morning and passing small amount of gas. Denies any nausea or vomiting. He is tolerating full liquid diet. He has been ambulating but does require assistance due to Delatorre catheter and IV pole. BLU drain output continues to decrease. Sanguinous in color with 120 mL out through the night. Patient has Delatorre catheter in place and urine remains clear. Afebrile WBC has normalized from 13.43-10.4 Hgb 9.4 sodium 135 potassium 3.0 and being replaced creatinine 0.58 magnesium 1.7 PHYSICAL EXAM: VITAL SIGNS: Reviewed. GENERAL: Well-developed in no acute distress. HEENT: No sclera icterus. Extraocular movements grossly intact. Moist buccal mucosa. Head is atraumatic, normocephalic. ABDOMEN: Soft. Nondistended. Incision site with prevana dressing is clean dry and intact. BLU drain with sanguinous output NEUROLOGIC: Awake and alert. ASSESSMENT: 1. History of perforated diverticulitis status post sigmoid resection and lower anterior resection 2. Bladder laceration status post repair 3. Acute blood loss anemia secondary to bladder laceration 4. Hypokalemia and hypomagnesemia PLAN: -Replace potassium and magnesium -continue full liquids -continue pain medication as needed -Continue Delatorre catheter until 03/04/2021, cystogram will be obtained prior to catheter removal per urology -Continue IV fluids -Continue antibiotics -Encouraged patient to use incentive spirometer and to ambulate -Continue to work with PT OT -Consult social work for possible ECF placement at discharge -GI prophylaxis Protonix and DVT prophylaxis subcu heparin Physician Sweetbread Trimmer note has been reviewed by physician. Signing provider agrees with the documented findings, assessment, and plan of care. Objective - Vital Signs Vital signs: Vital Signs Temp 97.7 F 02/22/21 07:22 Pulse 73 02/22/21 07:22 Resp 18 02/22/21 07:22 BP 131/65 02/22/21 07:22 Pulse Ox 94 L 02/22/21 07:22 Intake & Output 02/21/21 02/22/21 02/22/21 18:59 06:59 18:59 Output Total 1100 3600 80 Balance -1100 -3600 -80 Output: Drainage 200 125 80 Abdomen 200 125 80 Urine 900 [id number] Uretheral (Delatorre) 1750 Other: Voiding Method Indwelling Catheter Indwelling Catheter Indwelling Catheter - Labs CBC & Chem 7: 02/22/21 06:15 02/22/21 06:15 Labs: Abnormal Lab Results - Last 24 Hours (Table) 02/21/21 02/22/21 02/22/21 Range/Units 05:50 06:15 06:15 RBC 2.95 L (4.30-5.90) m/uL Hgb 9.4 L (13.0-17.5) gm/dL Hct 28.1 L (39.0-53.0) % RDW 18.3 H (11.5-15.5) % Sodium 135 L (137-145) mmol/L Potassium 3.0 L (3.5-5.1) mmol/L Carbon Dioxide 18.8 L (21.6-31.8) mmol/L Anion Gap 14.70 H (4.00-12.00) mmol/L BUN 3.8 L 3 L (9.0-27.0) mg/dL Creatinine 0.58 L (0.66-1.25) mg/dL BUN/Creatinine Ratio 5.97 L (12.00-20.00) Ratio Glucose 69 L (70-110) mg/dL Calcium 7.3 L 7.4 L (8.7-10.3) mg/dL Total Protein 4.8 L (6.3-8.2) g/dL Albumin 2.2 L (3.5-5.0) g/dL <Marcello Walden - Last Filed: 02/22/21 14:58> Subjective As above. Tolerating diet. No nausea or vomiting. Had a bowel movement and flatus today. Will increase diet. Possible discharge over weekend. Objective - Vital Signs Vital signs: Vital Signs Temp 97.7 F 02/22/21 07:22 Pulse 73 02/22/21 07:22 Resp 18 02/22/21 07:22 BP 131/65 02/22/21 07:22 Pulse Ox 94 L 02/22/21 07:22 Intake & Output 02/21/21 02/22/21 02/22/21 18:59 06:59 18:59 Output Total 1100 3600 130 Balance -1100 -3600 -130 Output: Drainage 200 125 130 Abdomen 200 125 130 Urine 900 3475 Uretheral (Delatorre) 1750 Other: Voiding Method Indwelling Catheter Indwelling Catheter Indwelling Catheter - Labs CBC & Chem 7: 02/22/21 06:15 02/22/21 06:15 Labs: Abnormal Lab Results - Last 24 Hours (Table) 02/22/21 02/22/21 Range/Units 06:15 06:15 RBC 2.95 L (4.30-5.90) m/uL Hgb 9.4 L (13.0-17.5) gm/dL Hct 28.1 L (39.0-53.0) % RDW 18.3 H (11.5-15.5) % Sodium 135 L (137-145) mmol/L Potassium 3.0 L (3.5-5.1) mmol/L BUN 3 L (9-20) mg/dL Creatinine 0.58 L (0.66-1.25) mg/dL Calcium 7.4 L (8.4-10.2) mg/dL Total Protein 4.8 L (6.3-8.2) g/dL Albumin 2.2 L (3.5-5.0) g/dL
[2021-02-22] MEDS ORDERED: MAGNESIUM SULFATE-D5W PMX 1 GM in DEXTROSE/WATER 1 100ML.BAG IVPB ONE (11:00)
--- NOTE | 2021-02-22 15:13 | P.PN ---
Progress Note - Text Progress Note Date: 02/22/21 POD #8 S/P repair of bladder laceration, having incisional pain, passing flatus tolerating diet. Output from BLU serosing, mishra with clear yellow urine Exam abdomen soft, distended, tenderness along the incision BLU serosing mishra urine clear A/P POD #8 -Continue Mishra catheter drainage. Mishra will be in place until 03/04/21, cystogram will be obtained prior to catheter removal. Will follow up with Dr. Danielle for catheter removal -Ambulate -BLU can be removed prior to discharge from urology standpoint
[2021-02-22] MEDS: metroNIDAZOLE 500 MG TAB PO SCH ×2 (16:51→20:37)
--- NOTE | 2021-02-22 18:06 | P.PN ---
Progress Note - Text Progress Note Date: 02/22/21 - Chief Complaint Abdominal pain This is a pleasant 70-year-old patient who follows with Dr. Ramirez. Chronic stable medical conditions include hyperlipidemia, history of prostate cancer in 2006 that was treated with surgery. Patient's had recurrent bouts of diverticulitis. He had microperforation with abscesses in the past. Patient with it for a scheduled sigmoid colon resection. Yesterday evening he underwent sigmoid resection with low anterior resection. In the recovery room patient was noted to have blood in the Delatorre catheter. It persisted. Patient was taken back to the operating room. They appeared to be a 3 cm opening of the bladder. That was repaired. 100 mL of fluid was removed from the abdominal cavity. BLU drain was placed. On top of the repaired. This morning patient having some abdominal pain. No nausea vomiting. Has been started on a clear liquid diet. Patient denies any chest pain or shortness of breath. February 15: Yesterday evening patient is having copious amount of output to the BLU drain. Cystogram confirmed extravasation of urine. Patient was taken back to the operating room by Dr. Carmona and Dr. Duran. Previous sutures from the bladder wall was removed and extravasation site was repaired. Patient has a Delatorre catheter. Slight bloody drainage. Has a BLU drain. Abdominal wound VAC. Some abdominal distention. NG tube to suction. Some old pain. IV Flagyl being added February 16: Earlier today patient's hemoglobin dropped to 5.4. Patient is having significantly bloody drainage out of the BLU drain. Patient was taken back to the OR by Dr. Duran. Large blood cultures removed and wheezing was noted on the bladder dome. This was cauterized. BLU drain was replaced. Provena wound VAC was replaced. NG tube in place. Abdominal pain. Patient's brother and sister are visiting. Patient earlier was transfused blood. February 17: Sitting up in a chair for about 2 hours. Abdominal pain present. 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 Patient remains nothing by mouth. BLU drain output light serosanguineous in color. February 18: Increasing pain in the abdomen when he moves about. NG tube in place. Delatorre catheter clear output. BLU drain has serosanguineous discharge. Remains nothing by mouth. IV fluids. Not much out of the provena a wound VAC February 19: Sitting up in a chair. Abdominal pain present. Urine from Delatorre catheter is clear. BLU drain serosanguineous output. Patient did pass a bit of flatus.. Ice chips allowed. February 20: Up in a chair. Abdominal pain present. Urine from Delatorre cath is clear. BLU drain remains serosanguineous with about 400 mL overnight. On liquid diet. Did have a mushy stool. February 21: Tolerating a full liquid diet. Loose BM. About 2 50 mL of serosanguineous from BLU drain overnight. Clear urine. Abdominal pain a bit better. Up in a chair. Did walk a bit. February 22: Up in a chair. Tolerating full liquid diet. Had a small stool. Put on about 1 20 mL of serosanguineous output from the BLU drain. Not much from the prerenal wound VAC. Urine remains to be clear. Feels a bit better. Breathing stable. Review of systems: Was done for constitutional, cardiovascular, GI, pulmonary. relevant finding as above Active Medications Hydrocodone Bitart/Acetaminophen (Hydrocodone/Apap 5-325mg 1 Each Tab) 1 each PO Q4HR PRN PRN Reason: Moderate Pain Last Admin: 02/22/21 16:51 Dose: 1 each Documented by: Benzocaine/Menthol (Benzocaine/Menthol Lozeng 1 Each Lozenge) 1 each MUCOUS MEM Q1HR PRN PRN Reason: Sore Throat Famotidine (Famotidine 20 Mg Tab) 20 mg PO BID [facility] Last Admin: 02/22/21 08:01 Dose: 20 mg Documented by: Hydromorphone HCl (Hydromorphone 1 Mg/Ml 1 Ml Syringe) 1 mg IVP Q2HR PRN PRN Reason: Severe Pain Last Admin: 02/19/21 11:46 Dose: 1 mg Documented by: Piperacillin Sod/Tazobactam (Sod 3.375 gm/ Sodium Chloride) 100 mls @ 25 mls/hr IVPB Q8HR [facility] Last Admin: 02/22/21 16:52 Dose: 25 mls/hr Documented by: Lactated Ringer's (Lactated Ringers) 1,000 mls @ 50 mls/hr IV .Q20H [facility] Last Admin: 02/22/21 08:01 Dose: Not Given Documented by: Lidocaine HCl (Lidocaine 1% (10mg/Ml) For Iv Start) 0.1 ml INTRADERMA PER PROTOCOL PRN PRN Reason: IV Start Metoclopramide HCl (Metoclopramide 5 Mg/Ml 2 Ml Vial) 10 mg IVP Q6HR PRN PRN Reason: Nausea and Vomiting Last Admin: 02/19/21 02:00 Dose: 10 mg Documented by: Metronidazole (Metronidazole 500 Mg Tab) 500 mg PO QID [facility] Last Admin: 02/22/21 16:51 Dose: 500 mg Documented by: Miscellaneous Information (Potassium Replacement Protocol 1 Each Misc) 1 each MISCELLANE DAILY PRN; Protocol PRN Reason: Per Protocol Nicotine (Nicotine 21mg/24hr Patch) 1 patch TRANSDERM DAILY [facility] Last Admin: 02/22/21 08:00 Dose: Not Given Documented by: Ondansetron HCl (Ondansetron 4 Mg/2 Ml Vial) 4 mg IVP Q8HR PRN PRN Reason: Nausea And Vomiting Simethicone (Simethicone 40 Mg/0.6 Ml Drops 2,000 Mg/30 Ml Bottle) 40 mg PO QID [facility] Last Admin: 02/22/21 16:52 Dose: Not Given Documented by: Past medical history to include: Hyperlipidemia, recurrent diverticulitis with microperforation, prostate cancer with surgery in 2006 Social history: Smoking a pack a day for last 50 years. Lives alone. I'll call occasionally. 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 Family history: Reviewed, noncontributory to presentation Physical examination: VITAL SIGNS: 97.7, 73, 18, 131/65, 94% room air GENERAL: Sitting up in a chair, awake EYES: Pupils equal. Conjunctiva normal. HEENT: External appearance of nose and ears normal, NG tube NECK: JVD not raised; masses not palpable. HEART: First and second heart sounds are normal; edema present LUNGS: Respiratory rate normal; decreased breath sounds. ABDOMEN: Soft, , tender, liver spleen not palpable, no masses palpable. BLU drain. Provena wound VAC. Delatorre catheter PSYCH: Alert and oriented x3; mood and affect anxious INVESTIGATIONS, reviewed in the clinical context: February 22: WBC 10.4 hemoglobin 9.4 platelets 322 potassium 3 creatinine 0.58 February 15: WBC 18.8 hemoglobin 7.7 potassium 4.7 BUN 17 creatinine 1.26 White count 15.5 hemoglobin 11.2 platelets 333 potassium 4.4 creatinine 0.8 Albumin 2.7 Coronavirus [PCR]: Not detected Assessment and plan: -Sigmoid resection with low anterior resection for recurrent diverticulitis BLU drain. Full liquid diet. -Acute hematuria from bladder wall trauma/perforation during surgery. taken back to have surgical repair. Late in the evening and cystogram confirmed further extravasation of urine. Taken back to the OR by Dr. Duran and Dr. Carmona. Previous sutures were removed. Repair of the bladder was done. Delatorre placed. Subsequent day increased bloody output to the BLU drain. Bleeding vessel noted on bladder dome. Cauterized. Wound VAC replaced. -Acute severe blood loss anemia, bleeding from the bladder improved Hemoglobin dropped from 5.4. 2 units of blood transfused -Sinus tachycardia from acute anemia and pain Telemetry -Acute kidney injury, prerenal/ATN: Improved Creatinine gone up from 0.71-1.26. IV fluids. Follow I's and O's -Hyperlipidemia Lipitor 80 mg daily -Chronic nicotine dependence, cigarette smoker Nicotine patch -Hypoalbuminemia, acute phase reactant -Normocytic anemia likely from chronic diverticulitis Follow H&H -Mild hyponatremia: IV fluids. Follow labs -Hypokalemia Replace potassium follow labs -Acute fluid overload from IV fluids: IV Lasix 20 mg every 122 dose. Decrease IV fluids to 50 mL an hour. IV Zosyn. IV Flagyl 500 mg every 6. Diet advanced to low fiber by surgery. Replace potassium.
[2021-02-23] MEDS: PIPERACILLIN-TAZOBACTAM 3.375 GM in SODIUM CHLORIDE 0.9% 100 ML IVPB SCH ×3 (00:19→17:08)
[2021-02-23 06:51] LABS: African American GFR (CKD) >90 (>60 ml/min/1.73 sqM); Anion Gap 6 mmol/L; Blood Urea Nitrogen 4 mg/dL (9-20); Calcium 7.8 mg/dL (8.4-10.2); Carbon Dioxide 24 mmol/L (22-30); Chloride 102 mmol/L (98-107); Glucose 92 mg/dL (74-99); Non-African American GFR(CKD) >90 (>60 ml/min/1.73 sqM); Potassium 3.7 mmol/L (3.5-5.1); Sodium 132 mmol/L (137-145)
[2021-02-23] MEDS: FAMOTIDINE 20 MG TAB PO SCH ×2 (08:32→21:11)
[2021-02-23] MEDS: SIMETHICONE 40 MG/0.6 ML DROPS 2,000 MG/30 ML BOTTLE PO SCH ×4 (08:32→21:12)
[2021-02-23] MEDS: metroNIDAZOLE 500 MG TAB PO SCH ×4 (08:32→21:11)
[2021-02-23] MEDS: NICOTINE 21MG/24HR PATCH TRANSDERM SCH (08:32)
--- NOTE | 2021-02-23 13:00 | P.PN ---
Subjective Progress Note Date: 02/23/21 Principal diagnosis: Diverticulitis Patient doing better today. He was able to tolerate some of the pizza that his family brought in for him yesterday. No nausea or vomiting. Still with some pain but improving he thinks. He did have a bowel movement and some flatus. He is afebrile. Objective - Vital Signs Vital signs: Vital Signs Temp 98.2 F 02/23/21 08:00 Pulse 69 02/23/21 08:00 Resp 18 02/23/21 08:00 BP 117/65 02/23/21 08:00 Pulse Ox 97 02/23/21 08:00 Intake & Output 02/22/21 02/23/21 02/23/21 18:59 06:59 18:59 Intake Total 1080 Output Total 780 1690 150 Balance 300 -1690 -150 Intake: Oral 1080 Output: Drainage 130 90 150 Abdomen 130 90 150 Urine 650 1600 Other: Voiding Method Indwelling Catheter Indwelling Catheter Indwelling Catheter # Bowel Movements 1 - Exam Abdomen: Soft, nondistended, dressing clean and dry, drain serosanguineous - Labs CBC & Chem 7: 02/22/21 06:15 02/23/21 06:07 Labs: Abnormal Lab Results - Last 24 Hours (Table) 02/23/21 Range/Units 06:07 Sodium 132 L (137-145) mmol/L BUN 4 L (9-20) mg/dL Creatinine 0.64 L (0.66-1.25) mg/dL Calcium 7.8 L (8.4-10.2) mg/dL Assessment and Plan (1) Diverticulitis Narrative/Plan: Patient seems to be doing well at this time. Continue low fiber diet. Continue ambulation. Probable discharge to home in 24-48 hours. Current Visit: Yes Status: Acute Code(s): K57.92 - DVTRCLI OF INTEST, PART UNSP, W/O PERF OR ABSCESS W/O BLEED SNOMED Code(s): 140926247
[2021-02-23] MEDS: HYDROcodone/APAP 5-325MG 1 EACH TAB PO PRN ×2 (15:24→21:35)
[2021-02-23] MEDS: LACTATED RINGERS 1,000 ML IV SCH (17:08)
--- NOTE | 2021-02-23 17:39 | P.PN ---
Subjective This is a pleasant 70 years old male with multiple medical problems as above presents with signs and symptoms of perforated diverticulitis and that is been followed closely by surgery team who are the primary team, he status post sigmoid resection and lower anterior resection. And he is resolving postoperatively gradually. Today patient reports no abdominal pain, his pain comes over when he tries to walk. He had 2 bowel movements this morning and they were slightly loose. It he ate a slice of pizza last night and this morning and gradually he started tolerated diet. Vitals are labs are normal. Sodium 132. His currently kept on oral Flagyl and Zosyn. Surgery primary team on the case Urologist also evaluated the patient for urinary bladder laceration status post surgical repair of his bladder. urologist recommended to continue with Delatorre catheter till 03/04 with a recommendation for outpatient cystogram before catheter removal Objective - Vital Signs Vital signs: Vital Signs Temp 98.3 F 02/23/21 14:00 Pulse 79 02/23/21 14:00 Resp 18 02/23/21 14:00 BP 119/65 02/23/21 14:00 Pulse Ox 96 02/23/21 14:00 Intake & Output 02/22/21 02/23/21 02/23/21 18:59 06:59 18:59 Intake Total 1080 Output Total 780 1690 230 Balance 300 -1690 -230 Intake: Oral 1080 Output: Drainage 130 90 230 Abdomen 130 90 230 Urine 650 1600 Other: Voiding Method Indwelling Catheter Indwelling Catheter Indwelling Catheter # Bowel Movements 1 - Exam GENERAL: The patient is alert and oriented x3, not in any acute distress. Well developed, well nourished. HEENT: Pupils are round and equally reacting to light. EOMI. No scleral icterus. No conjunctival pallor. Normocephalic, atraumatic. No pharyngeal erythema. No thyromegaly. CARDIOVASCULAR: S1 and S2 present. No murmurs, rubs, or gallops. PULMONARY: Chest is clear to auscultation, no wheezing or crackles. -ABDOMEN: Soft, nontender, nondistended, normoactive bowel sounds. No palpable organomegaly. Vertical wound, closed with dressing in place. BLU drain with serosanguineous fluid. Once VAC is in place MUSCULOSKELETAL: No joint swelling or deformity. EXTREMITIES: No cyanosis, clubbing, or pedal edema. NEUROLOGICAL: Gross neurological examination did not reveal any focal deficits. SKIN: No rashes. no petechiae. - Labs CBC & Chem 7: 02/22/21 06:15 02/23/21 06:07 Labs: Abnormal Lab Results - Last 24 Hours (Table) 02/23/21 Range/Units 06:07 Sodium 132 L (137-145) mmol/L BUN 4 L (9-20) mg/dL Creatinine 0.64 L (0.66-1.25) mg/dL Calcium 7.8 L (8.4-10.2) mg/dL Assessment and Plan Assessment: Perforated diverticulitis status post sigmoid resection and lower anterior resection Urinary bladder laceration status post surgical repair Intra-abdominal infection Plan: This is a pleasant 70 years old male who presents with perforated bowel and bladder status post surgical repair of both. Is improving gradually with surgery primary team on the case. He started tolerating diet well and having bowel movement while abdominal pain is easing down. Continue with low fiber diet and pain management. Labs and medication were reviewed.. Continue same treatment. Continue with symptomatic treatment. Resume home medication. Monitor lytes and vitals. DVT and GI prophylaxis. Further recommendationsas per clinical course of the patien t DVT prophylaxis: Subcutaneous heparin GI Prophylaxis: Pepcid An every 4 consulting us, we will follow up with you
[2021-02-23] MEDS: HEPARIN SODIUM,PORCINE/PF 5,000 UNIT/0.5 ML SYRINGE SQ SCH (21:12)
[2021-02-24] MEDS: PIPERACILLIN-TAZOBACTAM 3.375 GM in SODIUM CHLORIDE 0.9% 100 ML IVPB SCH ×2 (01:09→11:21)
[2021-02-24] MEDS: LACTATED RINGERS 1,000 ML IV SCH (07:13)
[2021-02-24] MEDS: FAMOTIDINE 20 MG TAB PO SCH (07:19)
[2021-02-24] MEDS: metroNIDAZOLE 500 MG TAB PO SCH ×2 (07:19→13:33)
[2021-02-24] MEDS: HEPARIN SODIUM,PORCINE/PF 5,000 UNIT/0.5 ML SYRINGE SQ SCH (07:19)
[2021-02-24] MEDS: NICOTINE 21MG/24HR PATCH TRANSDERM SCH (07:20)
[2021-02-24] MEDS: SIMETHICONE 40 MG/0.6 ML DROPS 2,000 MG/30 ML BOTTLE PO SCH ×2 (07:23→13:34)
[2021-02-24] MEDS: HYDROcodone/APAP 5-325MG 1 EACH TAB PO PRN (07:27)
[2021-02-24 08:14] VITALS: RESP 18
--- NOTE | 2021-02-24 10:38 | P.DS ---
Providers Date of admission: 02/13/21 08:45 Expected date of discharge: 02/24/21 Attending physician: Esteban Carmona Consults: 02/13/21 15:02 Consult Physician Routine Consulting Provider: Julian Wu Consult Reason/Comments: Medical management Do you want consulting provider notified?: Yes 02/14/21 11:00 Consult Physician Routine Consulting Provider: Collin Danielle Consult Reason/Comments: possible bladder/ureter leak Do you want consulting provider notified?: Yes Primary care physician: Levi Ramirez - Discharge Diagnosis(es) (1) Diverticulitis Patient admitted for sigmoid resection for chronic diverticulitis. Patient with previous abscess formation. Intraoperatively patient found to have significant inflammatory changes. Postoperatively the patient was noted to have a bladder leak. Patient went back to surgery by urology and general surgery for repair. Postoperative the patient had his diet gradually advanced. Doing well at this time. Drain still serosanguineous in appearance. Patient is afebrile. He is anxious to go home. Will plan discharge today on oral antibiotics. Follow-up with Dr. Carmona on Thursday. Follow-up with urology as well. Current Visit: Yes Status: Acute Plan - Discharge Summary Discharge Rx Participant: No New Discharge Prescriptions: New Amoxic-Pot Clav 875-125Mg [Augmentin 875-125] 1 tab PO BID 7 Days #14 tab HYDROcodone/APAP 5-325MG [Sherwood 5-325] 1 tab PO Q6HR PRN 3 Days #6 tab PRN Reason: Analgesia No Action Atorvastatin Calcium [Lipitor] 80 mg PO DAILY Ascorbic Acid [Vitamin C] 1,000 mg PO DAILY Multivitamins, Thera [Multivitamin (formulary)] 1 tab PO DAILY Aspirin EC [Ecotrin] 325 mg PO DAILY Discharge Medication List Ascorbic Acid [Vitamin C] 1,000 mg PO DAILY 12/13/20 [History] Aspirin EC [Ecotrin] 325 mg PO DAILY 12/13/20 [History] Atorvastatin Calcium [Lipitor] 80 mg PO DAILY 12/13/20 [History] Multivitamins, Thera [Multivitamin (formulary)] 1 tab PO DAILY 12/13/20 [History] Amoxic-Pot Clav 875-125Mg [Augmentin 875-125] 1 tab PO BID 7 Days #14 tab 02/24/21 [Rx] HYDROcodone/APAP 5-325MG [Sherwood 5-325] 1 tab PO Q6HR PRN 3 Days #6 tab 02/24/21 [Rx] Follow up Appointment(s)/Referral(s): Collin Danielle MD [STAFF PHYSICIAN] - 03/04/21 Esteban Carmona MD [STAFF PHYSICIAN] - 02/26/21 Activity/Diet/Wound Care/Special Instructions: Discharge home with Delatorre. Patient will be contacted by Dr. Danielle' office to arrange follow-up.
--- NOTE | 2021-02-24 11:21 | P.PN ---
Subjective This is a pleasant 70 years old male with multiple medical problems as above presents with signs and symptoms of perforated diverticulitis and that is been followed closely by surgery team who are the primary team, he status post sigmoid resection and lower anterior resection. And he is resolving postoperatively gradually. Today patient reports no abdominal pain, his pain comes over when he tries to walk. He had 2 bowel movements this morning and they were slightly loose. It he ate a slice of pizza last night and this morning and gradually he started tolerated diet. Vitals are labs are normal. Sodium 132. His currently kept on oral Flagyl and Zosyn. Surgery primary team on the case Urologist also evaluated the patient for urinary bladder laceration status post surgical repair of his bladder. urologist recommended to continue with Delatorre catheter till 03/04 with a recommendation for outpatient cystogram before catheter removal 02/24/2021 Patient is doing well. He did not eat his breakfast this morning because he did not like the foot from the hospital about he ate chicken fingers yesterday last evening and did well with that. No abdominal pain. No nausea vomiting. He had 2 bowel movements this morning and they looked normal for the patient. No labs from today. From yesterday sodium was 132 and cardia 0.6. WBC was normal 2 days ago at 10.4. Hemoglobin is stable at 9.4 and normal platelet count. Patient remains on antibiotics with oral Flagyl and IV Zosyn. urologist recommended to continue with Delatorre catheter till 03/04 with a recommendation for outpatient cystogram before catheter removal. Appointment already on the nurses medical assistants phlebotomists. Continue with Delatorre catheter. Objective - Vital Signs Vital signs: Vital Signs Temp 98.5 F 02/24/21 08:00 Pulse 73 02/24/21 08:00 Resp 18 02/24/21 08:00 BP 138/70 02/24/21 08:00 Pulse Ox 95 02/24/21 08:25 Intake & Output 02/23/21 02/24/21 02/24/21 19:59 06:59 18:59 Output Total Balance Output: Drainage Abdomen Urine Other: Voiding Method - Exam GENERAL: The patient is alert and oriented x3, not in any acute distress. Well developed, well nourished. HEENT: Pupils are round and equally reacting to light. EOMI. No scleral icterus. No conjunctival pallor. Normocephalic, atraumatic. No pharyngeal erythema. No thyromegaly. CARDIOVASCULAR: S1 and S2 present. No murmurs, rubs, or gallops. PULMONARY: Chest is clear to auscultation, no wheezing or crackles. -ABDOMEN: Soft, nontender, nondistended, normoactive bowel sounds. No palpable organomegaly. Vertical wound, closed with dressing in place. BLU drain with serosanguineous fluid. Once VAC is in place MUSCULOSKELETAL: No joint swelling or deformity. EXTREMITIES: No cyanosis, clubbing, or pedal edema. NEUROLOGICAL: Gross neurological examination did not reveal any focal deficits. SKIN: No rashes. no petechiae. - Labs CBC & Chem 7: 02/22/21 06:15 02/23/21 06:07 Assessment and Plan Assessment: Perforated diverticulitis status post sigmoid resection and lower anterior resection Urinary bladder laceration status post surgical repair Intra-abdominal infection Plan: This is a pleasant 70 years old male who presents with perforated bowel and bladder status post surgical repair of both. Is improving gradually with surgery primary team on the case. He started tolerating diet well and having bowel movement while having no abdominal pain Continue with low fiber diet and pain management. urologist recommended to continue with Delatorre catheter till 03/04 with a recommendation for outpatient cystogram before catheter removal continue with antibiotic Labs and medication were reviewed.. Continue same treatment. Continue with symptomatic treatment. Resume home medication. Monitor lytes and vitals. DVT and GI prophylaxis. Further recommendationsas per clinical course of the patient DVT prophylaxis: Subcutaneous heparin GI Prophylaxis: Pepcid
--- NOTE | 2021-02-24 11:45 | P.PN ---
Progress Note - Text Progress Note Date: 02/24/21 POD #10 S/P repair of bladder laceration, doing well . Output from BLU serosing, mishra with clear yellow urine Exam abdomen soft, distended, tenderness along the incision BLU serosing mishra urine clear A/P POD #10 -Continue Mishra catheter drainage. Mishra will be in place until 03/04/21, cy stogram will be obtained prior to catheter removal. Will follow up with Dr. Danielle for catheter removal -BLU can be removed prior to discharge from urology standpoint
[2021-02-24 14:14] VITALS: BP 139/67; PULSE 83; TEMP 97.7
== END 2021-02-24 14:28 | disposition home health service (06) | DRG 329 ==
LOC: 2ORMAIN 08:45 → 4SSUR 16:54
PROVIDERS: ADMIT Surgery; ATTEND Surgery
PROC: 0TQB0ZZ Repair Bladder, Open Approach (ICD-10-PCS; 2021-02-13)
PROC: 0TJB0ZZ Inspection of Bladder, Open Approach (ICD-10-PCS; 2021-02-13)
PROC: 0DTN0ZZ Resection of Sigmoid Colon, Open Approach (ICD-10-PCS; principal; 2021-02-13 10:40)
PROC: 0TQB0ZZ Repair Bladder, Open Approach (ICD-10-PCS; 2021-02-14)
PROC: 0TJB0ZZ Inspection of Bladder, Open Approach (ICD-10-PCS; 2021-02-14)
PROC: 0WCG0ZZ Extirpation of Matter from Peritoneal Cavity, Open Approach (ICD-10-PCS; 2021-02-16)
PROC: 0TJB0ZZ Inspection of Bladder, Open Approach (ICD-10-PCS; 2021-02-16)
PROC: 0W3G0ZZ Control Bleeding in Peritoneal Cavity, Open Approach (ICD-10-PCS; 2021-02-16)
PROC: 0TQB0ZZ Repair Bladder, Open Approach (ICD-10-PCS; 2021-02-16)
PROC: 30233N1 Transfusion of Nonautologous Red Blood Cells into Peripheral Vein, Percutaneous Approach (ICD-10-PCS; 2021-02-16)
DX: K57.20 Diverticulitis of large intestine with perforation and abscess without bleeding (principal); N17.0 Acute kidney failure with tubular necrosis; S37.23XA Laceration of bladder, initial encounter; D62 Acute posthemorrhagic anemia; E87.1 Hypo-osmolality and hyponatremia; F17.210 Nicotine dependence, cigarettes, uncomplicated; E88.09 Other disorders of plasma-protein metabolism, not elsewhere classified; R31.9 Hematuria, unspecified; E87.70 Fluid overload, unspecified; E78.5 Hyperlipidemia, unspecified; E83.42 Hypomagnesemia; E87.6 Hypokalemia; Z79.82 Long term (current) use of aspirin; Z79.899 Other long term (current) drug therapy; Z85.46 Personal history of malignant neoplasm of prostate; Z90.79 Acquired absence of other genital organ(s); Z60.2 Problems related to living alone; Z20.822 Contact with and (suspected) exposure to COVID-19
CPT/HCPCS: 64999; 74430; 80048; 80053; 82570; 82728; 83540; 83550; 83735; 84132; 84145; 85025; 85610; 85730; 86850; 86900; 86901; 86920; 87635; 88307; 93005; 94760

== ENCOUNTER → 2021-03-04 | Outpatient (CLI) | payer MEDICARE, OTHER ==
--- NOTE | 2021-03-04 13:52 | FL ---
EXAMINATION TYPE: FL cystogram DATE OF EXAM: 03/04/2021 COMPARISON: 02/14/2021 HISTORY: Bladder laceration TECHNIQUE: Cystogram is performed through a previously placed catheter. Under fluoroscopic observatio n contrast was filled in retrograde manner. 50 mL of Cystografin was allowed to be placed by gravity. At approximately 50 mL the patient stated very clearly, "Stop, No more." Additional oblique views w ere then obtained in the bladder was drained. FINDINGS: Urinary bladder fills normally. No intraluminal defect is evident. The previous changes along the sup erior dome of the bladder are not evident. No extravasation of contrast is evident. No ureteral reflu x was identified. Fluoroscopy time: 12 seconds. Images: 9 IMPRESSION: 1. No extravasation of contrast retrograde cystogram. 2. Low patient tolerance to bladder distention during this exam.
== END | disposition home or self-care (01) ==
LOC: RADFLMAIN 12:40
PROVIDERS: ATTEND Urology
DX: S37.23XA Laceration of bladder, initial encounter (principal)
CPT/HCPCS: 74430; Q9958